=== PATIENT | female | born 1945 | race Caucasian/White ===

== ENCOUNTER 2022-07-01 11:47 | Inpatient (IN) | payer MEDICARE, OTHER, SELFPAY ==
--- NOTE | ~2022-07-01 | MR_ITS ---
EXAMINATION: MR BRAIN WITHOUT CONTRAST CLINICAL INFORMATION: Confusion. Behavioral disturbance. Memory loss. COMPARISON: None available. TECHNIQUE: MRI of the brain was obtained using routine sequences without contrast. FINDINGS: No focal restricted diffusion is demonstrated to suggest acute or subacute cerebral ischemia. No evidence of acute or chronic hemorrhagic products on heme-sensitive imaging. Scattered and partially confluent periventricular, deep white matter, and brainstem T2 FLAIR hyperintensities consistent with moderate underlying microangiopathy. 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 Proportional prominence of the ventricles and sulcal spaces without evidence of obstructive hydrocephalus. No abnormal mass effect. No midline shift. Normal appearance of the pituitary gland. Normal positioning of the cerebellar tonsils. Normal arterial and venous vascular flow voids are present. Normal, homogeneous marrow signal. Moderate opacification of the left sphenoid air cell. Mild mucosal thickening of the remaining paranasal sinuses. Moderate leftward nasal septal deviation. No signal abnormalities within the mastoids. MR/MR head/brain wo con IMPRESSION: 1. No acute intracranial abnormalities. 2. Moderate underlying microangiopathy and generalized cerebral volume loss. Chronic lacunar infarcts of the cerebellum.
[2022-07-01 12:01] VITALS: BP 160/84; PULSE 66; RESP 16; TEMP 36.9; O2SAT 93; BMI 35.5
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
[2022-07-01 13:03] LABS: COVID-19 Test Negative (Negative); IDNOW Serial# 16C4AD1C
--- NOTE | 2022-07-01 13:24 | PC.NURSE ---
MD at bedside, social work at bedside
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
--- NOTE | 2022-07-01 14:07 | MHC.EDTECH ---
@[phone] called [facility] MR line. Requested records for the patient. The woman on the line said they couldn't release mental health information without a release form. I asked for the fax number and told her we would get the release faxed to her LILLY.
[2022-07-01 14:13] LABS: MANUAL DIFF FLAG NO
[2022-07-01 14:16] LABS: Basophils Absolute Auto 0.1 X10*3/uL (0.0-0.2); Basophils Percent Auto 0.6 % (0-2); Eosinophils Absolute Auto 0.2 X10*3/uL (0.0-0.4); Eosinophils Percent Auto 2.4 % (0-4); Hematocrit 43.4 % (37.0-47.0); Hemoglobin 13.9 g/dl (12.0-16.0); Imm Gran Abs Auto 0.03 X10*3/uL (0.00-0.03); Imm Gran Pct Auto 0.4 % (0.0-0.4); Lymphocytes Absolute Auto 1.7 X10*3/uL (1.2-4.9); Lymphocytes Percent Auto 20.9 % (20-40); Mean Corpuscular Hemoglobin 29.6 pg (27.0-33.0); Mean Corpuscular Volume 92.3 fL (80.0-98.0); Mean Platelet Volume 9.2 fL (9.4-12.3); Monocytes Absolute Auto 0.6 X10*3/uL (0.1-1.2); Neutrophils Absolute Auto 5.7 x10*3/uL (2.0-8.3); Neutrophils Percent Auto 68.7 % (45-73); Platelet Count 304 X10*3/uL (160-400); Red Cell Distribution Width 14.6 % (11.0-16.0); White Blood Count 8.3 X10*3/uL (4.8-10.8)
[2022-07-01 14:43] LABS: Alanine Aminotransferase 13 U/L (0-31); Alkaline Phosphatase 67 U/L (39-117); Anion Gap 15 (12-20); Aspartate Amino Transferase 17 U/L (5-31); Bilirubin Total 0.4 mg/dL (0.0-1.0); Blood Urea Nitrogen 12 mg/dL (9-16); Calcium 9.7 mg/dL (8.4-10.2); Carbon Dioxide 26 mmol/L (22-29); Chloride 106 mmol/L (96-108); Creatinine Clr Calc Pharmacy 64.2; Estimated Glomerular Filt Rate > 60; Glucose Fasting 162 mg/dL (60-99); Potassium 4.6 mmol/L (3.3-5.1); Sodium 142 mmol/L (135-145); Total Protein 6.9 g/dL (6.5-8.0)
[2022-07-01 15:19] LABS: Appearance Urine Cloudy; Color Urine Dark Yellow; Glucose Urine UA Negative (Negative); Leukocyte Esterase Urine Small (1+) (Negative); Nitrite Urine Negative (Negative); Specific Gravity - Urine 1.025 (1.005-1.025); UMIC TRIGGER UACC YES; Urine Blood Negative (Negative); Urine Ketones Trace mg/dL (Negative); Urine Protein Trace mg/dL (Neg-Trace)
--- NOTE | 2022-07-01 15:27 | PC.NURSE ---
Care team at bedside for eval with pt and her .
[2022-07-01 15:30] LABS: Amphetamine Screen Urine Not Detected (Not Detect); Barbiturates, Urine Not Detected (Not Detect); Benzodiazepines Screen Urine Not Detected (Not Detect); Cannabinoid Screen Urine Not Detected (Not Detect); Cocaine Screen Urine Not Detected (Not Detect); Fentanyl, urine Not Detected (Not Detect); Opiate Screen Urine Not Detected (Not Detect); Phencyclidine Screen Urine Not Detected (Not Detect)
[2022-07-01 15:32] LABS: Bacteria Urine None Seen (None Seen); Calcium Oxalate Crystals Urine Present; Hyaline Casts Urine 0-2 /LPF (0-2); RBC Urine 0-2 /HPF (0-2); UACC Culture Trigger YES
--- NOTE | 2022-07-01 16:56 | PHA.MEDREC ---
Pharmacy Consult ? Medication Reconciliation Pharmacy has completed the medication reconciliation.
[2022-07-01 19:36] LABS: Glucose, Whole Blood 170 mg/dL (60-115)
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
[2022-07-02 00:05] VITALS: BP 133/83; PULSE 82; RESP 18; TEMP 36.4; O2SAT 95
--- NOTE | 2022-07-02 00:06 | MHC.EDTECH ---
pt is sitting in the chair across from her room she can not sleep she just wants to sit
--- NOTE | 2022-07-02 04:36 | MHC.EDTECH ---
pt is still awake have not slept all night
[2022-07-02] MEDS: Levothyroxine Sodium 75 MCG TABLET PO (05:42)
--- NOTE | 2022-07-02 05:53 | PC.NURSE ---
Patient sat in chair whole night awake at time in tears, patient is mad at her and her children for making her stay in ED POD, patient will be evaluated by care team in the morning after psych consult for capacity, med rec completed/approved, patient is selectively compliant with her medication, behavior non concerning, gait at time unsteady but secured, POC 170 @ 1932, VSS, will continue to monitor.
--- NOTE | 2022-07-02 07:19 | PC.NURSE ---
Patient visiting with no distress noted alert to person and place some confusion to time and situation.
[2022-07-02 07:21] LABS: Glucose, Whole Blood 231 mg/dL (60-115)
[2022-07-02 07:24] VITALS: BP 124/71; PULSE 72; RESP 16; TEMP 36.5; O2SAT 96
[2022-07-02] MEDS: metFORMIN HCl ER 500 MG TAB.ER.24H 1000 MG PO ×2 (08:26→17:57)
[2022-07-02] MEDS: Insulin Glargine,Hum.rec.anlog 100 UNIT/ML 10 ML VIAL 17 UNIT SUBCUT (08:26)
[2022-07-02] MEDS: Tolterodine Tartrate LA 4 MG CAP.ER.24H PO (08:51)
[2022-07-02] MEDS: Propranolol HCL LA 80 MG CAP.SA.24H 160 MG PO (09:11)
--- NOTE | 2022-07-02 09:14 | MHC.CARE ---
Patient's daughter, Kenya Gaviria, called this morning 914a 07/02/2022 requesting to be notified when patient is d/c, if she is, as well as to be able to discuss her mother's behavior/ care with the individual responsible for the psych consult.
--- NOTE | 2022-07-02 09:32 | PC.NURSE ---
Patient sleeping at bedside will CTM
[2022-07-02 13:34] LABS: C Reactive Protein 0.41 mg/dL (< or = 0.50)
[2022-07-02 13:50] LABS: TSH reflex Free T4 1.81 uIU/mL (0.32-4.0)
[2022-07-02 14:11] LABS: Folate 17.5 ng/mL (> or = 4.0); Vitamin B12 351 pg/mL (200-900)
--- NOTE | 2022-07-02 14:22 | PC.NURSE ---
Patient ambulating in pod with behavior appropriate will CTM
--- NOTE | 2022-07-02 15:40 | PC.NURSE ---
Pt seen this date for individual OT tx. ELOY cognitive assessment administered this day, environment modified to decrease auditory and visual distraction for most objective outcome. Pts score 16/30 is indicative of moderate neurocognitive deficit present. Pts attending OTR notified of pt result.
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
[2022-07-02] MEDS: risperiDONE 0.5 MG TABLET PO (17:57)
[2022-07-02] MEDS: LORazepam 1 MG TABLET 2 MG PO (18:05)
[2022-07-03 01:47] VITALS: BP 118/70; PULSE 69; RESP 17; TEMP 36.3; O2SAT 95
--- NOTE | 2022-07-03 05:46 | PC.NURSE ---
Patient slept intermittently though the night, no distress observed/reported, no behavior concerns at this time but was tearful at time, thought content delusional but thought process coherent, patient was compliant with MRI, medication compliant, care team disposition is pending due to pending psych consult, VSS, will continue to monitor.
[2022-07-03] MEDS: Levothyroxine Sodium 75 MCG TABLET PO (06:56)
[2022-07-03 07:45] LABS: Syphilis Screen Nonreactive (Nonreactive)
[2022-07-03 07:46] VITALS: RESP 18
[2022-07-03 07:57] VITALS: BP 158/96; PULSE 90; RESP 20; TEMP 36.1; O2SAT 94
[2022-07-03 08:20] LABS: Glucose, Whole Blood 209 mg/dL (60-115)
[2022-07-03] MEDS: Insulin Glargine,Hum.rec.anlog 100 UNIT/ML 10 ML VIAL 17 UNIT SUBCUT (08:23)
[2022-07-03] MEDS: LORazepam 0.5 MG TABLET PO (08:23)
[2022-07-03] MEDS: risperiDONE 0.5 MG TABLET PO (08:23)
[2022-07-03] MEDS: metFORMIN HCl ER 500 MG TAB.ER.24H 1000 MG PO ×2 (08:24→18:51)
[2022-07-03] MEDS: Tolterodine Tartrate LA 4 MG CAP.ER.24H PO (08:32)
[2022-07-03] MEDS: Propranolol HCL LA 80 MG CAP.SA.24H 160 MG PO (08:32)
--- NOTE | 2022-07-03 10:42 | PC.NURSE ---
Pt became acutely agitated during 's visit. removed to WR.
--- NOTE | 2022-07-03 11:22 | MHC.CARE ---
Spoke to patient?s and daughter in the lobby by their request, they did not want to further upset her by coming in but wanted to talk to a CARE clergy member. They explained that last evening they were planning to take her home but she became extremely agitated and they did not feel safe taking her and wanted to see if the new medication would be effective after a few doses here. We relieved that she had the MRI last night and are eager to hear the results. Expressed concerns about patient not sleeping and would like to know how to invoke the HCP and what that offers in terms of decision making in this situation. The are worried about her being home without medication compliance, agitation, delusions and level of anger towards her family. ?Patient was sleeping at the time of this conversation and the family planned to wait in the lobby until she woke up or there was an update on her and want to revisit the disposition with the psychiatric provider.
--- NOTE | 2022-07-03 12:53 | PC.NURSE ---
Pt supplied with 2x copies of MRI results per pt request. Pt in behavioral control at this time.
[2022-07-03 14:00] VITALS: RESP 18
--- NOTE | 2022-07-03 18:20 | PC.NURSE ---
Pt appears to be sleeping at thsi time, resp reg and even, no acute distress. Section 12B myesha bedsearch.
[2022-07-03] MEDS: Acetaminophen 325 MG TABLET PO (19:29)
[2022-07-03 21:21] VITALS: BP 154/83; PULSE 83; RESP 18; TEMP 36.1; O2SAT 95
[2022-07-03 23:47] VITALS: BP 152/77; PULSE 76; RESP 18; TEMP 36.2; O2SAT 100
[2022-07-03 23:49] VITALS: BMI 38.7
--- NOTE | 2022-07-04 | ECG_ITS ---
Test Reason : qtc Blood Pressure : / mmHG Vent. Rate : 086 BPM Atrial Rate : 086 BPM P-R Int : 152 ms QRS Dur : 072 ms QT Int : 356 ms P-R-T Axes : 031 -02 022 degrees QTc Int : 426 ms Normal sinus rhythm Low voltage QRS Nonspecific ST abnormality Borderline ECG No previous ECGs available Referred By: Rekha Craig Electronically Signed By:HELENA RODRIGES
[2022-07-04] MEDS: risperiDONE 0.5 MG TABLET PO ×2 (00:05→10:49)
[2022-07-04] MEDS: Pravastatin Sodium 20 MG TABLET PO ×2 (00:05→21:11)
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
[2022-07-04] MEDS: Albuterol Sulfate 90 MCG 8 GM INHALER 2 PUFF INHALE (01:27)
[2022-07-04] MEDS: LORazepam 0.5 MG TABLET PO ×3 (03:05→21:11)
[2022-07-04] MEDS: Levothyroxine Sodium 75 MCG TABLET PO (05:38)
[2022-07-04 06:00] VITALS: BP 92/57; PULSE 61; RESP 14; TEMP 36.2; O2SAT 96
[2022-07-04] MEDS: Insulin Glargine,Hum.rec.anlog 100 UNIT/ML 10 ML VIAL 17 UNIT SUBCUT (10:49)
[2022-07-04] MEDS: metFORMIN HCl ER 500 MG TAB.ER.24H 1000 MG PO ×2 (11:22→16:46)
[2022-07-04] MEDS: Tolterodine Tartrate LA 4 MG CAP.ER.24H PO (11:23)
--- NOTE | 2022-07-04 13:33 | HO.PSYADMNOT ---
HPI Date of Service: 07/04/22 Chief Complaint: delusions Sources of Information: patient interviewed, chart reviewed and crisis/core team assessment reviewed Additional Sources of Information: daughter [place] - Hitesh [facility] Subjective Notes: [place] Warning and Section 12B Healthcare Proxy: Yes Narrative: Mrs. Cool is a 77 year-old woman who has been presenting with delusions that her is having an affair with woman at [employer]. This has been going on for almost a year but has significantly intensified in the past several week. Family also reports pt has been presenting as more forgetful, forgetting recipes she done for years. She has not been sleeping well. At times waking up at night, telling that she thinks someone is in the house.? Pt has been increasingly more agitated towards and family worried that recently had hip surgery and is fragil. In the ED- work up include CBC which is unremarkable. CMP wnl, with creatinine clearance of 64.2. UA shows small leukocytes, culture positive for step a. (group b) started on aumentin. MOCA completed- pt scored 16/30 with most impairments on executive function, visuospatial (0/5), naming (1/3), language fluency and recall. Orientation is intact. 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 On the unit, pt continues to present with delusions of having an affair with someone from the [employer]. She states she is hoping for him to confessed. She denies SI/HI. We discussed finding of cognitive impairments and changes in mood. Medical Evaluation Reviewed: Yes Diagnostics Vital Signs (24Hr): Vital Signs - 24 hr 07/03/22 14:00 07/03/22 21:21 07/03/22 23:47 Temperature 97 F 97.2 F Pulse Rate 83 76 Respiratory Rate 18 18 18 Blood Pressure 154/83 H 152/77 H Pulse Oximetry 95 100 Oxygen Delivery Method Room Air Room Air 07/04/22 06:00 Temperature 97.2 F Pulse Rate 61 Respiratory Rate 14 Blood Pressure 92/57 L Pulse Oximetry 96 Oxygen Delivery Method Room Air BMI result Body Mass Index 38.7 Labs 07/01/22 14:07 07/01/22 14:07 Labs: Laboratory Results - last 48 hr 07/02/22 07/02/22 07/02/22 12:49 12:49 12:49 POC Glucose C-Reactive Protein 0.41 Vitamin B12 351 Folate 17.5 TSH 1.81 T.pallidum Ab (EIA) Nonreactive 07/03/22 08:15 POC Glucose 209 H C-Reactive Protein Vitamin B12 Folate TSH T.pallidum Ab (EIA) Imaging Radiology Impressions: ITS Impressions Brain MRI 07/02/22 21:00 IMPRESSION: 1. No acute intracranial abnormalities. 2. Moderate underlying microangiopathy and generalized cerebral volume loss. Chronic lacunar infarcts of the cerebellum. Meds/Allergies Meds Home Medications Medication Instructions Recorded Confirmed Type albuterol sulfate 90 mcg/actuation 2 puff inhalation Q6H 07/01/22 07/01/22 History aerosol inhaler dulaglutide 0.75 mg/0.5 mL 75 mg subcut FR 07/01/22 07/01/22 History subcutaneous pen injector (Trulicity) insulin degludec 100 unit/mL (3 25 unit subcut DAILY 07/01/22 07/01/22 History mL) subcutaneous pen (Tresiba FlexTouch U-100 insulin) levothyroxine 75 mcg tablet 1 tab PO DAILY 07/01/22 07/01/22 History lorazepam 0.5 mg tablet 1 tab PO BID PRN Anxiety 07/01/22 07/01/22 History metformin 500 mg tablet,extended 2 tab PO BID 07/01/22 07/01/22 History release 24 hr pravastatin 20 mg tablet 1 tab PO BEDTIME 07/01/22 07/01/22 History propranolol 160 mg capsule,24 1 cap PO DAILY 07/01/22 07/01/22 History hr,extended release tolterodine 4 mg capsule,extended 1 cap PO DAILY 07/01/22 07/01/22 History release 24 hr Allergies Allergies Allergy/AdvReac Type Severity Reaction Status Date / Time combi-patch (hormone) Allergy Unknown Unknown Uncoded 07/01/22 11:51 Sulfamethoxazole Allergy Unknown Unknown Uncoded 07/01/22 11:51 Mental Status Exam Mental Status Exam Narrative: Appearance: casually groomed, good hygiene, tearful but not agitated. Behavior: cooperative Psychomotor: no agitation or retardation noted Speech: clear, some difficulty finding words is evident, spontaneous TP: repetitive- goal directed wanting to go home. TC: delusions related to having affair, wanting to go home SI: none HI: none VH/AH: none Insight/judgment: impaired x 2. Memory/cog: alert, oriented month, place, date, year, not so much situation- thinks family conspiring against her because father has affair and brought her to hospital to keep her away from them. MOCA on 07/02/2022 scored 16/30 with most impairments on executive function, visuospatial (0/5), naming (1/3), language fluency (0/1) and recall (2/5). Orientation is intact. 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 Assessment & Plan Assessment & Plan (1) Vascular dementia with delusions: Status: Acute Code(s): F01.52 - Vascular dementia, unspecified severity, with psychotic disturbance Plan Mrs. Grayson is a 77 year-old woman with hx of DM, HTN, who was brought by family due to increase agitation in setting of delusions of having affair. These delusions have been increasing in intensity and frequency but started almost about one year ago. Pt also presents with memory/cognitive changes which family have been noticing. MOCA on 07/02/2022 scored 16/30 with most impairments on executive function, visuospatial (0/5), naming (1/3), language fluency (0/1) and recall (2/5). Orientation is intact. 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 Pattern of impairment is most consistent with vascular dementia but language also showing significant impairment. It could be a mixed presentation. PLAN 1. Admit to S1, sect 12b, 15 minutes checks for safety 2. increase risperidone 1mg po BID, start exelon 1.5mg po BID 3. Aftercare planning. Patient educated on: diagnosis Reason for continued inpatient stay Substantial Risk for: harm to others and inability to function Statement Statement: I have reviewed the history and physical and performed a pertinent examination on my patient. No changes have occurred unless specified. If the History and Physical was not performed prior to admission, the Hospitalist's service will be consulted for completing the admission physical. Time Spent With Patient Time: Total time managing care of this patient today ____ minutes.
[2022-07-04 13:40] LABS: Estimated Average Glucose 171 mg/dL; Hemoglobin A1c % 7.6 %
[2022-07-04 13:50] LABS: Troponin-I High Sensitivity < 3.5 ng/L (<3.5-17.0)
[2022-07-04] MEDS: Amoxicillin/Potassium Clav 500 MG TABLET PO ×2 (13:51→21:11)
[2022-07-04 16:29] LABS: Glucose, Whole Blood 192 mg/dL (60-115)
[2022-07-04] MEDS: Insulin Lispro 100 UNIT/ML 3 ML VIAL SUBCUT (16:45)
[2022-07-04] MEDS: Rivastigmine Tartrate 1.5 MG CAPSULE PO ×2 (16:46→21:11)
--- NOTE | 2022-07-04 20:17 | PC.NURSE ---
Pt noted to be walking with cane in a a steady gait. Pt reports I want to walk for fresh air . Pt educated about patio and fresh air breaks. Pt then reports not that kind of fresh air break but away from here . Pt noted to be agitated and pacing. Pt then requested to go out to patio. Pt was taking out to patio for fresh air break. After Pt came back in RN asked if she can take her POCT glucose and Pt refused stating I already had it checked Pt educated on medications and checking blood glucose. Pt refused medications at this time. Will re-attempt after Pt less agitated. Will con't to monitor.
[2022-07-04 21:05] VITALS: BP 94/63; PULSE 112; RESP 20; TEMP 36.2; O2SAT 95
[2022-07-04] MEDS: risperiDONE 1 MG TABLET PO (21:11)
[2022-07-04 21:18] VITALS: BP 98/69; PULSE 95
[2022-07-05] MEDS: Levothyroxine Sodium 75 MCG TABLET PO (05:56)
[2022-07-05 07:50] LABS: Glucose, Whole Blood 136 mg/dL (60-115)
[2022-07-05 10:20] VITALS: BP 163/83; PULSE 89; RESP 18; TEMP 36.4; O2SAT 98
[2022-07-05 11:52] LABS: Glucose, Whole Blood 121 mg/dL (60-115)
--- NOTE | 2022-07-05 12:21 | P.PNPSI_ITS ---
Subjective Subjective Date of Service: 07/05/22 Reason For Visit: delusions Subjective Notes: Conditional Voluntary (signed by HCP) Healthcare Proxy: Yes Interim History: Pt continues to present with delusions of having an affair. She is very upset because she thinks she is here so can be with woman from [facility]. Pt denies SI/HI. Pt upset about being hospital as she states she misses her and wants to be with him. Per nursing, pt irritable at times due to wanting to be here. Medication Compliance: Yes Side effects from medications: No Attending Groups: Intermittent Review of Systems Review of Systems Constitutional : No Weight loss, No Fever, No Chills, No Night Sweats, No Fatigue, No Malaise ENT/Mouth : No Hearing loss, No Ear Pain, No Nasal Congestion, No Sinus Pain, No Hoarseness, No sore throat, No Rhinorrhea, No Swallowing Difficulty Eyes: No Eye Pain, No Swelling, No Redness, No Foreign Body, No Discharge, No Vision Changes Cardiovascular : No Chest Pain, No SOB, No Dyspnea on Exertion, No Orthopnea, No Edema, No Palpitations Respiratory : No Cough, No Sputum, No Wheezing, No Smoke Exposure, No Dyspnea Gastrointestinal : No Nausea, No Vomiting, No Diarrhea, No Constipation, No abdominal Pain, No Hematochezia, No Melena Genitourinary : no irregular bleeding, No Dysuria, No Urinary Frequency, No Hematuria, No Urinary Incontinence, No Urgency, No Flank Pain, No Urinary Flow Changes, No Hesitancy Musculoskeletal : No joint pain, No Myalgias, No Joint Swelling Skin : No Skin Lesions, No rash Neuro : No Weakness, No Numbness, No Paresthesias, No Loss of Consciousness, No Dizziness, No Headache Psych : Patient denies suicidal or homicidal ideation Heme/Lymph: No Bruising, No Bleeding,No Lymphadenopathy Endocrine : No Polyuria, No Polydipsia, No Temperature Intolerance Mental Status Exam Mental Status Exam Narrative: Appearance: casually groomed, good hygiene, tearful but not agitated. Behavior: cooperative Psychomotor: no agitation or retardation noted Speech: clear, some difficulty finding words is evident, spontaneous TP: repetitive- goal directed wanting to go home. TC: delusions related to having affair, wanting to go home SI: none HI: none VH/AH: none Insight/judgment: impaired x 2. Memory/cog: alert, oriented month, place, date, year, not so much situation- thinks family conspiring against her because father has affair and brought her to hospital to keep her away from them. MOCA on 07/02/2022 scored 16/30 with most impairments on executive function, visuospatial (0/5), naming (1/3), language fluency (0/1) and recall (2/5). Orientation is intact. 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 Diagnostics Vital Signs (24Hr): Vital Signs - 24 hr 07/05/22 10:20 Temperature 97.6 F Pulse Rate 89 Respiratory Rate 18 Blood Pressure 163/83 H Pulse Oximetry 98 Oxygen Delivery Method Room Air BMI result Body Mass Index 38.7 Labs 07/01/22 14:07 07/01/22 14:07 Labs: Laboratory Results - last 48 hr 07/04/22 07/04/22 07/04/22 13:24 13:24 16:24 POC Glucose 192 H Estimat Average Glucose 171 Hemoglobin A1c % 7.6 Troponin I High Sens < 3.5 07/05/22 07/05/22 07/05/22 07:45 11:48 16:24 POC Glucose 136 H 121 H 178 H Estimat Average Glucose Hemoglobin A1c % Troponin I High Sens 07/05/22 07/06/22 20:15 07:51 POC Glucose 135 H 152 H Estimat Average Glucose Hemoglobin A1c % Troponin I High Sens Imaging Radiology Impressions: ITS Impressions Brain MRI 07/02/22 21:00 IMPRESSION: 1. No acute intracranial abnormalities. 2. Moderate underlying microangiopathy and generalized cerebral volume loss. Chronic lacunar infarcts of the cerebellum. Medications Medications Current Medications Acetaminophen (Acetaminophen 325 Mg Tablet) 650 mg PO Q6H PRN PRN Reason: Headache/Pain Mild Scale (1-3) Al Hydroxide/Mg Hydroxide (Magnesium Hydrox/Alum Hydrox 30 Ml Oral.Susp) 30 ml PO Q6H PRN PRN Reason: Heartburn/Nausea Albuterol Sulfate (Albuterol Sulfate 90 Mcg 8 Gm Inhaler) 2 puff INHALE RQ6H [facility] Last Admin: 07/06/22 06:42 Dose: Not Given Amoxicillin/Clavulanate Potassium (Amoxicillin/Potassium Clav 500 Mg Tablet) 500 mg PO BID [facility] Last Admin: 07/05/22 20:17 Dose: 500 mg Insulin Glargine (Insulin Glargine,Hum.Rec.Anlog 100 Unit/Ml 10 Ml Vial) 17 uni t SUBCUT DAILY [facility] Last Admin: 07/05/22 12:51 Dose: 17 unit Insulin Human Lispro (Insulin Lispro 100 Unit/Ml 3 Ml Vial) 0 unit SUBCUT QIDACHS [facility]; Protocol Last Admin: 07/05/22 23:37 Dose: Not Given Levothyroxine Sodium (Levothyroxine Sodium 75 Mcg Tablet) 75 mcg PO DAILY@0600 [facility] Last Admin: 07/06/22 06:41 Dose: 75 mcg Lorazepam (Lorazepam 0.5 Mg Tablet) 0.5 mg PO BID [facility] Last Admin: 07/05/22 20:17 Dose: 0.5 mg Magnesium Hydroxide (Milk Of Magnesia 30 Ml Oral.Susp) 30 ml PO DAILY PRN PRN Reason: Constipation Metformin HCl (Metformin Hcl Er 500 Mg Tab.Er.24h) 1,000 mg PO BIDWM [facility] Last Admin: 07/05/22 16:43 Dose: 1,000 mg Pravastatin Sodium (Pravastatin Sodium 20 Mg Tablet) 20 mg PO BEDTIME [facility] Last Admin: 07/05/22 20:16 Dose: 20 mg Propranolol HCl (Propranolol Hcl La 80 Mg Cap.Sa.24h) 160 mg PO DAILY [facility]; Protocol Last Admin: 07/05/22 12:43 Dose: 160 mg Risperidone (Risperidone 1 Mg Tablet) 1 mg PO BID [facility] Last Admin: 07/05/22 20:17 Dose: 1 mg Rivastigmine Tartrate (Rivastigmine Tartrate 1.5 Mg Capsule) 1.5 mg PO BID [facility] Last Admin: 07/05/22 20:17 Dose: 1.5 mg Tolterodine Tartrate (Tolterodine Tartrate La 4 Mg Cap.Er.24h) 4 mg PO DAILY [facility] Last Admin: 07/05/22 12:45 Dose: 4 mg Trazodone HCl (Trazodone Hcl 50 Mg Tablet) 50 mg PO BEDTIME PRN PRN Reason: Insomnia Allergies Allergies Allergy/AdvReac Type Severity Reaction Status Date / Time combi-patch (hormone) Allergy Unknown Unknown Uncoded 07/01/22 11:51 Sulfamethoxazole Allergy Unknown Unknown Uncoded 07/01/22 11:51 Assessment & Plan Assessment & Plan (1) Vascular dementia with delusions: Status: Acute Code(s): F01.52 - Vascular dementia, unspecified severity, with psychotic disturbance Plan Mrs. Grayson is a 77 year-old woman with hx of DM, HTN, who was brought by family due to increase agitation in setting of delusions of having affair. These delusions have been increasing in intensity and frequency but started almost about one year ago. Pt also presents with memory/cognitive changes which family have been noticing. MOCA on 07/02/2022 scored 16/30 with most impairments on executive function, visuospatial (0/5), naming (1/3), language fluency (0/1) and recall (2/5). Orientation is intact. 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 Pattern of impairment is most consistent with vascular dementia but language also showing significant impairment. It could be a mixed presentation. PLAN 1. Admit to S1, sect 12b, 15 minutes checks for safety 2. increase risperidone 1mg po BID, start exelon 1.5mg po BID 3. Aftercare planning. 07/05- continue current medications. Reason for contiued inpatient stay Substantial Risk for: inability to function Time Spent With Patient Time: Total time managing care of this patient today ____ minutes.
[2022-07-05] MEDS: Propranolol HCL LA 80 MG CAP.SA.24H 160 MG PO (12:43)
[2022-07-05] MEDS: Amoxicillin/Potassium Clav 500 MG TABLET PO ×2 (12:43→20:17)
[2022-07-05] MEDS: metFORMIN HCl ER 500 MG TAB.ER.24H 1000 MG PO ×2 (12:44→16:43)
[2022-07-05] MEDS: risperiDONE 1 MG TABLET PO ×2 (12:45→20:17)
[2022-07-05] MEDS: Rivastigmine Tartrate 1.5 MG CAPSULE PO ×2 (12:45→20:17)
[2022-07-05] MEDS: Tolterodine Tartrate LA 4 MG CAP.ER.24H PO (12:45)
[2022-07-05] MEDS: LORazepam 0.5 MG TABLET PO ×2 (12:45→20:17)
[2022-07-05] MEDS: Insulin Glargine,Hum.rec.anlog 100 UNIT/ML 10 ML VIAL 17 UNIT SUBCUT (12:51)
[2022-07-05 16:28] LABS: Glucose, Whole Blood 178 mg/dL (60-115)
[2022-07-05] MEDS: Insulin Lispro 100 UNIT/ML 3 ML VIAL SUBCUT (16:41)
[2022-07-05] MEDS: Pravastatin Sodium 20 MG TABLET PO (20:16)
[2022-07-05 20:30] LABS: Glucose, Whole Blood 135 mg/dL (60-115)
[2022-07-06] MEDS: LORazepam 1 MG TABLET PO (00:02)
[2022-07-06 06:00] VITALS: BP 116/69; PULSE 78; RESP 18; TEMP 36.8; O2SAT 93
[2022-07-06] MEDS: Levothyroxine Sodium 75 MCG TABLET PO (06:41)
[2022-07-06 07:55] LABS: Glucose, Whole Blood 152 mg/dL (60-115)
--- NOTE | 2022-07-06 09:02 | HO.PSYCHPN ---
Subjective Subjective Date of Service: 07/06/22 Reason For Visit: delusions Subjective Notes: Section 12B Interim History: The nursing staff reported the last night she could not sleep she needed an extra order of Ativan 1 time at HS. She woke up at 04:00 o'clock in the morning. The staff has noticed that she is very the head on her delusional regarding the charge her cheating. She was seen in the ambulating with a cane safely. On interview the patient denies new symptoms she was to be discharged as soon as possible. She was tearful and she wanted me to talk wiht her . Mental Status Exam Mental Status Exam Patient Appearance: Well Grooomed and Appropriate Patient Orientation: Person and Situation Level of Consciousness: Awake and Appropriate Patient Behavior: Guarded and Cooperative Mood Description: Withdrawn Affect Description: Constricted Patient Cognition Impaired: Yes Ability to Follow Directions: Good Speech Pattern: Clear Hallucinations: None Delusions: Paranoid Ideation and Ideas of Reference Thought Process: Distracted and Linear Thought Content: positive for Circumstantial Judgement: Poor Diagnostics Vital Signs (24Hr): Vital Signs - 24 hr 07/05/22 10:20 Temperature 97.6 F Pulse Rate 89 Respiratory Rate 18 Blood Pressure 163/83 H Pulse Oximetry 98 Oxygen Delivery Method Room Air BMI result Body Mass Index 38.7 Labs 07/01/22 14:07 07/01/22 14:07 Labs: Laboratory Results - last 48 hr 07/04/22 07/04/22 07/04/22 13:24 13:24 16:24 POC Glucose 192 H Estimat Average Glucose 171 Hemoglobin A1c % 7.6 Troponin I High Sens < 3.5 07/05/22 07/05/22 07/05/22 07:45 11:48 16:24 POC Glucose 136 H 121 H 178 H Estimat Average Glucose Hemoglobin A1c % Troponin I High Sens 07/05/22 07/06/22 20:15 07:51 POC Glucose 135 H 152 H Estimat Average Glucose Hemoglobin A1c % Troponin I High Sens Imaging Radiology Impressions: ITS Impressions Brain MRI 07/02/22 21:00 IMPRESSION: 1. No acute intracranial abnormalities. 2. Moderate underlying microangiopathy and generalized cerebral volume loss. Chronic lacunar infarcts of the cerebellum. Medications Medications Current Medications Acetaminophen (Acetaminophen 325 Mg Tablet) 650 mg PO Q6H PRN PRN Reason: Headache/Pain Mild Scale (1-3) Al Hydroxide/Mg Hydroxide (Magnesium Hydrox/Alum Hydrox 30 Ml Oral.Susp) 30 ml PO Q6H PRN PRN Reason: Heartburn/Nausea Albuterol Sulfate (Albuterol Sulfate 90 Mcg 8 Gm Inhaler) 2 puff INHALE RQ6H [facility] Last Admin: 07/06/22 06:42 Dose: Not Given Amoxicillin/Clavulanate Potassium (Amoxicillin/Potassium Clav 500 Mg Tablet) 500 mg PO BID [facility] Last Admin: 07/05/22 20:17 Dose: 500 mg Insulin Glargine (Insulin Glargine,Hum.Rec.Anlog 100 Unit/Ml 10 Ml Vial) 17 unit SUBCUT DAILY [facility] Last Admin: 07/05/22 12:51 Dose: 17 unit Insulin Human Lispro (Insulin Lispro 100 Unit/Ml 3 Ml Vial) 0 unit SUBCUT QIDACHS [facility]; Protocol Last Admin: 07/05/22 23:37 Dose: Not Given Levothyroxine Sodium (Levothyroxine Sodium 75 Mcg Tablet) 75 mcg PO DAILY@0600 [facility] Last Admin: 07/06/22 06:41 Dose: 75 mcg Lorazepam (Lorazepam 0.5 Mg Tablet) 0.5 mg PO BID [facility] Last Admin: 07/05/22 20:17 Dose: 0.5 mg Magnesium Hydroxide (Milk Of Magnesia 30 Ml Oral.Susp) 30 ml PO DAILY PRN PRN Reason: Constipation Metformin HCl (Metformin Hcl Er 500 Mg Tab.Er.24h) 1,000 mg PO BIDWM [facility] Last Admin: 07/05/22 16:43 Dose: 1,000 mg Pravastatin Sodium (Pravastatin Sodium 20 Mg Tablet) 20 mg PO BEDTIME [facility] Last Admin: 07/05/22 20:16 Dose: 20 mg Propranolol HCl (Propranolol Hcl La 80 Mg Cap.Sa.24h) 160 mg PO DAILY [facility]; Protocol Last Admin: 07/05/22 12:43 Dose: 160 mg Risperidone (Risperidone 1 Mg Tablet) 1 mg PO BID [facility] Last Admin: 07/05/22 20:17 Dose: 1 mg Rivastigmine Tartrate (Rivastigmine Tartrate 1.5 Mg Capsule) 1.5 mg PO BID [facility] Last Admin: 07/05/22 20:17 Dose: 1.5 mg Tolterodine Tartrate (Tolterodine Tartrate La 4 Mg Cap.Er.24h) 4 mg PO DAILY [facility] Last Admin: 07/05/22 12:45 Dose: 4 mg Trazodone HCl (Trazodone Hcl 50 Mg Tablet) 50 mg PO BEDTIME PRN PRN Reason: Insomnia Allergies Allergies Allergy/AdvReac Type Severity Reaction Status Date / Time combi-patch (hormone) Allergy Unknown Unknown Uncoded 07/01/22 11:51 Sulfamethoxazole Allergy Unknown Unknown Uncoded 07/01/22 11:51 Assessment & Plan Assessment & Plan (1) Vascular dementia with delusions: Status: Acute Code(s): F01.52 - Vascular dementia, unspecified severity, with psychotic disturbance Plan Mrs. Cool is a 77 year old woman brought via EMS to [facility] ED due to delusions of having an affair, increase agitation and memory/cog declined. Changes have been going on for a year but recently increasingly more intense in terms of delusions and agitation. Medical work up in ED include CBC unremarkable. CMP also unremarkable. UA suggestive of UTI pending culture. Do NOT suspect pt is delirious as attention is fairly intact and given progressive behavioral and cognitive changes may be better explained by dementing process. Her pattern of impairment is consistent with vascular dementia- except for language impairment, but her orientation is intact (also another finding not consistent with delirium process). She may have mixed etiology.pt scored 16/30 with most impairments on executive function, visuospatial (0/5), naming (1/3), language fluency and recall. Orientation is intact. 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 PLAN 1. Initial plan was for pt to start medication and follow up OP but she continues to present as agitated and targeting . Also, lacks insight to symptoms and need for treatment. Pt insists on driving which is highly concerning given MOCA results showing severe impairments in visuospatial and executive function. Inpatient psych at this point. 2. Continue risperidone and exelon Reason for contiued inpatient stay Substantial Risk for: inability to function, rapid decompensation and med/psych decompensation Time Spent With Patient Time: Total time managing care of this patient today __20__ minutes.
[2022-07-06] MEDS: Insulin Lispro 100 UNIT/ML 3 ML VIAL SUBCUT ×3 (09:22→20:15)
[2022-07-06] MEDS: Tolterodine Tartrate LA 4 MG CAP.ER.24H PO (09:23)
[2022-07-06] MEDS: Rivastigmine Tartrate 1.5 MG CAPSULE PO ×2 (09:23→20:14)
[2022-07-06] MEDS: Insulin Glargine,Hum.rec.anlog 100 UNIT/ML 10 ML VIAL 17 UNIT SUBCUT (09:23)
[2022-07-06] MEDS: metFORMIN HCl ER 500 MG TAB.ER.24H 1000 MG PO ×2 (09:23→17:18)
[2022-07-06] MEDS: risperiDONE 1 MG TABLET PO ×2 (09:23→21:18)
[2022-07-06] MEDS: Propranolol HCL LA 80 MG CAP.SA.24H 160 MG PO (09:23)
[2022-07-06] MEDS: Amoxicillin/Potassium Clav 500 MG TABLET PO ×2 (09:24→20:13)
[2022-07-06] MEDS: LORazepam 0.5 MG TABLET PO ×2 (09:24→20:13)
[2022-07-06 11:29] LABS: Glucose, Whole Blood 246 mg/dL (60-115)
[2022-07-06 16:37] LABS: Glucose, Whole Blood 149 mg/dL (60-115)
[2022-07-06 18:00] VITALS: BP 125/71; PULSE 71; RESP 16; TEMP 36.2; O2SAT 94
[2022-07-06 20:07] LABS: Glucose, Whole Blood 172 mg/dL (60-115)
[2022-07-06] MEDS: Pravastatin Sodium 20 MG TABLET PO (20:13)
[2022-07-07] MEDS: Levothyroxine Sodium 75 MCG TABLET PO (05:44)
[2022-07-07 07:30] VITALS: BP 131/60; PULSE 75; RESP 16; TEMP 36.9; O2SAT 95
[2022-07-07 07:43] LABS: Glucose, Whole Blood 118 mg/dL (60-115)
[2022-07-07] MEDS: Insulin Glargine,Hum.rec.anlog 100 UNIT/ML 10 ML VIAL 17 UNIT SUBCUT (09:26)
[2022-07-07] MEDS: Amoxicillin/Potassium Clav 500 MG TABLET PO ×2 (09:27→20:41)
[2022-07-07] MEDS: metFORMIN HCl ER 500 MG TAB.ER.24H 1000 MG PO ×2 (09:27→16:56)
[2022-07-07] MEDS: risperiDONE 1 MG TABLET PO ×2 (09:27→20:41)
[2022-07-07] MEDS: Tolterodine Tartrate LA 4 MG CAP.ER.24H PO (09:27)
[2022-07-07] MEDS: Propranolol HCL LA 80 MG CAP.SA.24H 160 MG PO (09:27)
[2022-07-07] MEDS: Rivastigmine Tartrate 1.5 MG CAPSULE PO ×2 (09:27→20:41)
[2022-07-07] MEDS: LORazepam 0.5 MG TABLET PO ×2 (09:28→20:41)
--- NOTE | 2022-07-07 09:49 | HO.PSYCHPN ---
Subjective Subjective Date of Service: 07/07/22 Reason For Visit: delusions Subjective Notes: Section 12B Interim History: The nursing staff reported that her her fasting blood sugars were well 100 sent 72 need coverage with insulin. She has been cooperative and she woke up 03:00 o'clock in the morning. She spent most of the time in her room. On interview the patient denies new symptoms she wants to be discharged. She was tearful, stating that her children put her here. No insight into her delusions Mental Status Exam Mental Status Exam Patient Appearance: Well Grooomed Patient Orientation: Person and Situation Level of Consciousness: Awake and Appropriate Patient Behavior: Guarded and Passive Mood Description: Withdrawn Affect Description: Constricted Ability to Follow Directions: Fair Speech Pattern: Clear Hallucinations: None Delusions: Paranoid Ideation Thought Process: Distracted and Slowed Thinking Thought Content: positive for [place] and positive for Circumstantial Judgement: Fair Diagnostics Vital Signs (24Hr): Vital Signs - 24 hr 07/06/22 18:00 Temperature 97.2 F Pulse Rate 71 Respiratory Rate 16 Blood Pressure 125/71 Pulse Oximetry 94 Oxygen Delivery Method Room Air BMI result Body Mass Index 38.7 Labs 07/01/22 14:07 07/01/22 14:07 Labs: Laboratory Results - last 48 hr 07/05/22 07/05/22 07/05/22 11:48 16:24 20:15 POC Glucose 121 H 178 H 135 H 07/06/22 07/06/22 07/06/22 07:51 11:25 16:29 POC Glucose 152 H 246 H 149 H 07/06/22 07/07/22 19:47 07:35 POC Glucose 172 H 118 H Imaging Radiology Impressions: ITS Impressions Brain MRI 07/02/22 21:00 IMPRESSION: 1. No acute intracranial abnormalities. 2. Moderate underlying microangiopathy and generalized cerebral volume loss. Chronic lacunar infarcts of the cerebellum. Medications Medications Current Medications Acetaminophen (Acetaminophen 325 Mg Tablet) 650 mg PO Q6H PRN PRN Reason: Headache/Pain Mild Scale (1-3) Al Hydroxide/Mg Hydroxide (Magnesium Hydrox/Alum Hydrox 30 Ml Oral.Susp) 30 ml PO Q6H PRN PRN Reason: Heartburn/Nausea Albuterol Sulfate (Albuterol Sulfate 90 Mcg 8 Gm Inhaler) 2 puff INHALE RQ6H [facility] Last Admin: 07/07/22 05:53 Dose: Not Given Amoxicillin/Clavulanate Potassium (Amoxicillin/Potassium Clav 500 Mg Tablet) 500 mg PO BID [facility] Last Admin: 07/07/22 09:27 Dose: 500 mg Insulin Glargine (Insulin Glargine,Hum.Rec.Anlog 100 Unit/Ml 10 Ml Vial) 17 unit SUBCUT DAILY [facility] Last Admin: 07/07/22 09:26 Dose: 17 unit Insulin Human Lispro (Insulin Lispro 100 Unit/Ml 3 Ml Vial) 0 unit SUBCUT QIDACHS [facility]; Protocol Last Admin: 07/07/22 08:56 Dose: Not Given Levothyroxine Sodium (Levothyroxine Sodium 75 Mcg Tablet) 75 mcg PO DAILY@0600 [facility] Last Admin: 07/07/22 05:44 Dose: 75 mcg Lorazepam (Lorazepam 0.5 Mg Tablet) 0.5 mg PO BID [facility] Last Admin: 07/07/22 09:28 Dose: 0.5 mg Magnesium Hydroxide (Milk Of Magnesia 30 Ml Oral.Susp) 30 ml PO DAILY PRN PRN Reason: Constipation Metformin HCl (Metformin Hcl Er 500 Mg Tab.Er.24h) 1,000 mg PO BIDWM [facility] Last Admin: 07/07/22 09:27 Dose: 1,000 mg Pravastatin Sodium (Pravastatin Sodium 20 Mg Tablet) 20 mg PO BEDTIME [facility] Last Admin: 07/06/22 20:13 Dose: 20 mg Propranolol HCl (Propranolol Hcl La 80 Mg Cap.Sa.24h) 160 mg PO DAILY [facility]; Protocol Last Admin: 07/07/22 09:27 Dose: 160 mg Risperidone (Risperidone 1 Mg Tablet) 1 mg PO BID [facility] Last Admin: 07/07/22 09:27 Dose: 1 mg Rivastigmine Tartrate (Rivastigmine Tartrate 1.5 Mg Capsule) 1.5 mg PO BID [facility] Last Admin: 07/07/22 09:27 Dose: 1.5 mg Tolterodine Tartrate (Tolterodine Tartrate La 4 Mg Cap.Er.24h) 4 mg PO DAILY [facility] Last Admin: 07/07/22 09:27 Dose: 4 mg Trazodone HCl (Trazodone Hcl 50 Mg Tablet) 50 mg PO BEDTIME PRN PRN Reason: Insomnia Allergies Allergies Allergy/AdvReac Type Severity Reaction Status Date / Time combi-patch (hormone) Allergy Unknown Unknown Uncoded 07/01/22 11:51 Sulfamethoxazole Allergy Unknown Unknown Uncoded 07/01/22 11:51 Assessment & Plan Assessment & Plan (1) Vascular dementia with delusions: Status: Acute Code(s): F01.52 - Vascular dementia, unspecified severity, with psychotic disturbance Plan Mrs. Cool is a 77 year old woman brought via EMS to [facility] [place] [place] ED due to delusions of having an affair, increase agitation and memory/cog declined. Changes have been going on for a year but recently increasingly more intense in terms of delusions and agitation. Medical work up in ED include CBC unremarkable. CMP also unremarkable. UA suggestive of UTI pending culture. Do NOT suspect pt is delirious as attention is fairly intact and given progressive behavioral and cognitive changes may be better explained by dementing process. Her pattern of impairment is consistent with vascular dementia- except for language impairment, but her orientation is intact (also another finding not consistent with delirium process). She may have mixed etiology.pt scored 16/30 with most impairments on executive function, visuospatial (0/5), naming (1/3), language fluency and recall. Orientation is intact. 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 PLAN 1. Initial plan was for pt to start medication and follow up OP but she continues to present as agitated and targeting . Also, lacks insight to symptoms and need for treatment. Pt insists on driving which is highly concerning given MOCA results showing severe impairments in visuospatial and executive function. Inpatient psych at this point. 2. Continue risperidone and exelon Reason for contiued inpatient stay Substantial Risk for: inability to function, rapid decompensation and med/psych decompensation Time Spent With Patient Time: Total time managing care of this patient today _20___ minutes.
[2022-07-07 11:30] LABS: Glucose, Whole Blood 131 mg/dL (60-115)
[2022-07-07 16:46] LABS: Glucose, Whole Blood 138 mg/dL (60-115)
[2022-07-07 18:00] VITALS: PULSE 72; RESP 16; TEMP 36.6; O2SAT 98
[2022-07-07] MEDS: Pravastatin Sodium 20 MG TABLET PO (20:41)
--- NOTE | 2022-07-07 22:08 | PC.NURSE ---
pt was agitated when given night meds. pt refused POC.
[2022-07-08 04:53] LABS: Glucose, Whole Blood 167 mg/dL (60-115)
[2022-07-08] MEDS: Levothyroxine Sodium 75 MCG TABLET PO (06:40)
[2022-07-08 07:48] LABS: Glucose, Whole Blood 193 mg/dL (60-115)
[2022-07-08] MEDS: Insulin Glargine,Hum.rec.anlog 100 UNIT/ML 10 ML VIAL 17 UNIT SUBCUT (08:09)
[2022-07-08] MEDS: Insulin Lispro 100 UNIT/ML 3 ML VIAL SUBCUT ×3 (08:09→22:16)
[2022-07-08] MEDS: Tolterodine Tartrate LA 4 MG CAP.ER.24H PO (08:10)
[2022-07-08] MEDS: Propranolol HCL LA 80 MG CAP.SA.24H 160 MG PO (08:10)
[2022-07-08] MEDS: LORazepam 0.5 MG TABLET PO ×2 (08:10→22:07)
[2022-07-08] MEDS: Amoxicillin/Potassium Clav 500 MG TABLET PO ×2 (08:10→22:07)
[2022-07-08] MEDS: metFORMIN HCl ER 500 MG TAB.ER.24H 1000 MG PO ×2 (08:10→18:59)
[2022-07-08] MEDS: Rivastigmine Tartrate 1.5 MG CAPSULE PO ×2 (08:10→22:07)
[2022-07-08] MEDS: risperiDONE 1 MG TABLET PO ×2 (08:10→22:07)
[2022-07-08 11:53] LABS: Glucose, Whole Blood 171 mg/dL (60-115)
[2022-07-08] MEDS: Loperamide HCl 2 MG CAPSULE PO ×2 (12:11→18:59)
--- NOTE | 2022-07-08 12:40 | HO.PSYCHPN ---
Subjective Subjective Date of Service: 07/08/22 Reason For Visit: delusions Subjective Notes: Conditional Voluntary Healthcare Proxy: Yes Interim History: Pt tearful asking to be discharged home. She continues to report she is here because his had affair and children are against her. Pt last night calling family members telling them that she was scheduled to have surgery and was told she was not going to make it. Pt continues with delusions, confusion increases at night, evening. did not sleep well. Medication Compliance: Yes Side effects from medications: No Attending Groups: Intermittent Review of Systems Review of Systems Constitutional : No Weight loss, No Fever, No Chills, No Night Sweats, No Fatigue, No Malaise ENT/Mouth : No Hearing loss, No Ear Pain, No Nasal Congestion, No Sinus Pain, No Hoarseness, No sore throat, No Rhinorrhea, No Swallowing Difficulty Eyes: No Eye Pain, No Swelling, No Redness, No Foreign Body, No Discharge, No Vision Changes Cardiovascular : No Chest Pain, No SOB, No Dyspnea on Exertion, No Orthopnea, No Edema, No Palpitations Respiratory : No Cough, No Sputum, No Wheezing, No Smoke Exposure, No Dyspnea Gastrointestinal : No Nausea, No Vomiting, No Diarrhea, No Constipation, No abdominal Pain, No Hematochezia, No Melena Genitourinary : no irregular bleeding, No Dysuria, No Urinary Frequency, No Hematuria, No Urinary Incontinence, No Urgency, No Flank Pain, No Urinary Flow Changes, No Hesitancy Musculoskeletal : No joint pain, No Myalgias, No Joint Swelling Skin : No Skin Lesions, No rash Neuro : No Weakness, No Numbness, No Paresthesias, No Loss of Consciousness, No Dizziness, No Headache Psych : Patient denies suicidal or homicidal ideation Heme/Lymph: No Bruising, No Bleeding,No Lymphadenopathy Endocrine : No Polyuria, No Polydipsia, No Temperature Intolerance Mental Status Exam Mental Status Exam Narrative: Appearance: casually groomed, good hygiene, tearful but not agitated. Behavior: cooperative Psychomotor: no agitation or retardation noted Speech: clear, some difficulty finding words is evident, spontaneous TP: repetitive- goal directed wanting to go home. TC: delusions related to having affair, wanting to go home SI: none HI: none VH/AH: none Insight/judgment: impaired x 2. Memory/cog: alert, oriented month, place, date, year, not so much situation- thinks family conspiring against her because father has affair and brought her to hospital to keep her away from them. MOCA on 07/02/2022 scored 16/30 with most impairments on executive function, visuospatial (0/5), naming (1/3), language fluency (0/1) and recall (2/5). Orientation is intact. 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 Diagnostics Vital Signs (24Hr): Vital Signs - 24 hr 07/09/22 18:00 Temperature 98.6 F Pulse Rate 86 Respiratory Rate 18 Blood Pressure 140/74 H Pulse Oximetry 93 Oxygen Delivery Method Room Air BMI result Body Mass Index 38.7 Labs 07/01/22 14:07 07/09/22 08:09 Labs: Laboratory Results - last 48 hr 07/08/22 07/08/22 07/09/22 11:49 22:06 08:09 Creatinine 0.98 Estim Creat Clear Calc 59.1 Estimated GFR 55 POC Glucose 171 H 188 H 07/09/22 07/09/22 07/10/22 08:35 19:59 07:56 Creatinine Estim Creat Clear Calc Estimated GFR POC Glucose 161 H 224 H 200 H Imaging Radiology Impressions: ITS Impressions Brain MRI 07/02/22 21:00 IMPRESSION: 1. No acute intracranial abnormalities. 2. Moderate underlying microangiopathy and generalized cerebral volume loss. Chronic lacunar infarcts of the cerebellum. Medications Medications Current Medications Acetaminophen (Acetaminophen 325 Mg Tablet) 650 mg PO Q6H PRN PRN Reason: Headache/Pain Mild Scale (1-3) Al Hydroxide/Mg Hydroxide (Magnesium Hydrox/Alum Hydrox 30 Ml Oral.Susp) 30 ml PO Q6H PRN PRN Reason: Heartburn/Nausea Albuterol Sulfate (Albuterol Sulfate 90 Mcg 8 Gm Inhaler) 2 puff INHALE RQ6H [facility] Last Admin: 07/10/22 07:53 Dose: Not Given Amoxicillin/Clavulanate Potassium (Amoxicillin/Potassium Clav 500 Mg Tablet) 500 mg PO BID [facility] Last Admin: 07/10/22 08:10 Dose: 500 mg Insulin Glargine (Insulin Glargine,Hum.Rec.Anlog 100 Unit/Ml 10 Ml Vial) 17 unit SUBCUT DAILY [facility] Last Admin: 07/10/22 08:08 Dose: 17 unit Insulin Human Lispro (Insulin Lispro 100 Unit/Ml 3 Ml Vial) 0 unit SUBCUT QIDACHS [facility]; Protocol Last Admin: 07/10/22 08:08 Dose: 2 unit Levothyroxine Sodium (Levothyroxine Sodium 75 Mcg Tablet) 75 mcg PO DAILY@0600 [facility] Last Admin: 07/10/22 05:44 Dose: 75 mcg Loperamide HCl (Loperamide Hcl 2 Mg Capsule) 2 mg PO Q4H PRN PRN Reason: loose stools Last Admin: 07/08/22 18:59 Dose: 2 mg Lorazepam (Lorazepam 0.5 Mg Tablet) 0.5 mg PO BID [facility] Last Admin: 07/09/22 19:46 Dose: 0.5 mg Magnesium Hydroxide (Milk Of Magnesia 30 Ml Oral.Susp) 30 ml PO DAILY PRN PRN Reason: Constipation Metformin HCl (Metformin Hcl Er 500 Mg Tab.Er.24h) 1,000 mg PO BIDWM [facility] Last Admin: 07/10/22 08:12 Dose: 1,000 mg Mirtazapine (Mirtazapine 15 Mg Tablet) 15 mg PO BEDTIME [facility] Last Admin: 07/09/22 19:46 Dose: 15 mg Pravastatin Sodium (Pravastatin Sodium 20 Mg Tablet) 20 mg PO BEDTIME [facility] Last Admin: 07/09/22 19:46 Dose: 20 mg Propranolol HCl (Propranolol Hcl La 80 Mg Cap.Sa.24h) 160 mg PO DAILY [facility]; Protocol Last Admin: 07/09/22 09:36 Dose: Not Given Quetiapine Fumarate (Quetiapine Fumarate 50 Mg Tablet) 50 mg PO Q6H PRN PRN Reason: agitation Risperidone (Risperidone 1 Mg Tablet) 1 mg PO TID [facility] Last Admin: 07/10/22 08:10 Dose: 1 mg Rivastigmine Tartrate (Rivastigmine Tartrate 1.5 Mg Capsule) 1.5 mg PO BID [facility] Last Admin: 07/10/22 08:10 Dose: 1.5 mg Tolterodine Tartrate (Tolterodine Tartrate La 4 Mg Cap.Er.24h) 4 mg PO DAILY [facility] Last Admin: 07/10/22 08:10 Dose: 4 mg Allergies Allergies Allergy/AdvReac Type Severity Reaction Status Date / Time combi-patch (hormone) Allergy Unknown Unknown Uncoded 07/01/22 11:51 Sulfamethoxazole Allergy Unknown Unknown Uncoded 07/01/22 11:51 Assessment & Plan Assessment & Plan (1) Vascular dementia with delusions: Status: Acute Code(s): F01.52 - Vascular dementia, unspecified severity, with psychotic disturbance Plan Mrs. Cool is a 77 year old woman brought via EMS to [facility] ED due to delusions of having an affair, increase agitation and memory/cog declined. Changes have been going on for a year but recently increasingly more intense in terms of delusions and agitation. Medical work up in ED include CBC unremarkable. CMP also unremarkable. UA suggestive of UTI pending culture. Do NOT suspect pt is delirious as attention is fairly intact and given progressive behavioral and cognitive changes may be better explained by dementing process. Her pattern of impairment is consistent with vascular dementia- except for language impairment, but her orientation is intact (also another finding not consistent with delirium process). She may have mixed etiology.pt scored 16/30 with most impairments on executive function, visuospatial (0/5), naming (1/3), language fluency and recall. Orientation is intact. 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 PLAN 07/08 continue current medications. will titrate risperidone. Reason for contiued inpatient stay Substantial Risk for: inability to function Time Spent With Patient Time: Total time managing care of this patient today ____ minutes.
[2022-07-08 18:00] VITALS: BP 116/83; PULSE 91; RESP 18; TEMP 36.6; O2SAT 96
[2022-07-08] MEDS: Mirtazapine 15 MG TABLET PO (22:07)
[2022-07-08] MEDS: Pravastatin Sodium 20 MG TABLET PO (22:07)
[2022-07-08 22:28] LABS: Glucose, Whole Blood 188 mg/dL (60-115)
[2022-07-09 08:38] LABS: Creatinine Clr Calc Pharmacy 59.1; Estimated Glomerular Filt Rate 55
[2022-07-09 08:39] LABS: Glucose, Whole Blood 161 mg/dL (60-115)
--- NOTE | 2022-07-09 12:43 | P.PNPSI_ITS ---
Subjective Subjective Date of Service: 07/09/22 Reason For Visit: delusions Subjective Notes: Conditional Voluntary Interim History: Pt did not sleep well last night again- added remeron. Pt combative in evening, confused with male peer who she thought it was her and staff keeping her away from him. Pt tearful reports my children will pay for this, I won't tell you what I will do. Pt states his confessed to her that he in fact had affair. He states he can see it in his eyes, despite admitting he did not say anything. Medication Compliance: Yes Side effects from medications: No Attending Groups: Intermittent Review of Systems Review of Systems Constitutional : No Weight loss, No Fever, No Chills, No Night Sweats, No Fatigue, No Malaise ENT/Mouth : No Hearing loss, No Ear Pain, No Nasal Congestion, No Sinus Pain, No Hoarseness, No sore throat, No Rhinorrhea, No Swallowing Difficulty Eyes: No Eye Pain, No Swelling, No Redness, No Foreign Body, No Discharge, No Vision Changes Cardiovascular : No Chest Pain, No SOB, No Dyspnea on Exertion, No Orthopnea, No Edema, No Palpitations Respiratory : No Cough, No Sputum, No Wheezing, No Smoke Exposure, No Dyspnea Gastrointestinal : No Nausea, No Vomiting, No Diarrhea, No Constipation, No abdominal Pain, No Hematochezia, No Melena Genitourinary : no irregular bleeding, No Dysuria, No Urinary Frequency, No Hematuria, No Urinary Incontinence, No Urgency, No Flank Pain, No Urinary Flow Changes, No Hesitancy Musculoskeletal : No joint pain, No Myalgias, No Joint Swelling Skin : No Skin Lesions, No rash Neuro : No Weakness, No Numbness, No Paresthesias, No Loss of Consciousness, No Dizziness, No Headache Psych : Patient denies suicidal or homicidal ideation Heme/Lymph: No Bruising, No Bleeding,No Lymphadenopathy Endocrine : No Polyuria, No Polydipsia, No Temperature Intolerance Mental Status Exam Mental Status Exam Narrative: Appearance: casually groomed, good hygiene, tearful but not agitated. Behavior: cooperative Psychomotor: no agitation or retardation noted Speech: clear, some difficulty finding words is evident, spontaneous TP: repetitive- goal directed wanting to go home. TC: delusions related to having affair, wanting to go home SI: none HI: none VH/AH: none Insight/judgment: impaired x 2. Memory/cog: alert, oriented month, place, date, year, not so much situation- thinks family conspiring against her because father has affair and brought her to hospital to keep her away from them. MOCA on 07/02/2022 scored 16/30 with most impairments on executive function, visuospatial (0/5), naming (1/3), language fluency (0/1) and recall (2/5). Orientation is intact. 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 Diagnostics Vital Signs (24Hr): Vital Signs - 24 hr 07/09/22 18:00 Temperature 98.6 F Pulse Rate 86 Respiratory Rate 18 Blood Pressure 140/74 H Pulse Oximetry 93 Oxygen Delivery Method Room Air BMI result Body Mass Index 38.7 Labs 07/01/22 14:07 07/09/22 08:09 Labs: Laboratory Results - last 48 hr 07/08/22 07/08/22 07/09/22 11:49 22:06 08:09 Creatinine 0.98 Estim Creat Clear Calc 59.1 Estimated GFR 55 POC Glucose 171 H 188 H 07/09/22 07/09/22 07/10/22 08:35 19:59 07:56 Creatinine Estim Creat Clear Calc Estimated GFR POC Glucose 161 H 224 H 200 H Imaging Radiology Impressions: ITS Impressions Brain MRI 07/02/22 21:00 IMPRESSION: 1. No acute intracranial abnormalities. 2. Moderate underlying microangiopathy and generalized cerebral volume loss. Chronic lacunar infarcts of the cerebellum. Medications Medications Current Medications Acetaminophen (Acetaminophen 325 Mg Tablet) 650 mg PO Q6H PRN PRN Reason: Headache/Pain Mild Scale (1-3) Al Hydroxide/Mg Hydroxide (Magnesium Hydrox/Alum Hydrox 30 Ml Oral.Susp) 30 ml PO Q6H PRN PRN Reason: Heartburn/Nausea Albuterol Sulfate (Albuterol Sulfate 90 Mcg 8 Gm Inhaler) 2 puff INHALE RQ6H [facility] Last Admin: 07/10/22 07:53 Dose: Not Given Amoxicillin/Clavulanate Potassium (Amoxicillin/Potassium Clav 500 Mg Tablet) 500 mg PO BID [facility] Last Admin: 07/10/22 08:10 Dose: 500 mg Insulin Glargine (Insulin Glargine,Hum.Rec.Anlog 100 Unit/Ml 10 Ml Vial) 17 unit SUBCUT DAILY [facility] Last Admin: 07/10/22 08:08 Dose: 17 unit Insulin Human Lispro (Insulin Lispro 100 Unit/Ml 3 Ml Vial) 0 unit SUBCUT QIDACHS [facility]; Protocol Last Admin: 07/10/22 08:08 Dose: 2 unit Levothyroxine Sodium (Levothyroxine Sodium 75 Mcg Tablet) 75 mcg PO DAILY@0600 [facility] Last Admin: 07/10/22 05:44 Dose: 75 mcg Loperamide HCl (Loperamide Hcl 2 Mg Capsule) 2 mg PO Q4H PRN PRN Reason: loose stools Last Admin: 07/08/22 18:59 Dose: 2 mg Lorazepam (Lorazepam 0.5 Mg Tablet) 0.5 mg PO BID [facility] Last Admin: 07/09/22 19:46 Dose: 0.5 mg Magnesium Hydroxide (Milk Of Magnesia 30 Ml Oral.Susp) 30 ml PO DAILY PRN PRN Reason: Constipation Metformin HCl (Metformin Hcl Er 500 Mg Tab.Er.24h) 1,000 mg PO BIDWM [facility] Last Admin: 07/10/22 08:12 Dose: 1,000 mg Mirtazapine (Mirtazapine 15 Mg Tablet) 15 mg PO BEDTIME [facility] Last Admin: 07/09/22 19:46 Dose: 15 mg Pravastatin Sodium (Pravastatin Sodium 20 Mg Tablet) 20 mg PO BEDTIME [facility] Last Admin: 07/09/22 19:46 Dose: 20 mg Propranolol HCl (Propranolol Hcl La 80 Mg Cap.Sa.24h) 160 mg PO DAILY [facility]; Protocol Last Admin: 07/09/22 09:36 Dose: Not Given Quetiapine Fumarate (Quetiapine Fumarate 50 Mg Tablet) 50 mg PO Q6H PRN PRN Reason: agitation Risperidone (Risperidone 1 Mg Tablet) 1 mg PO TID [facility] Last Admin: 07/10/22 08:10 Dose: 1 mg Rivastigmine Tartrate (Rivastigmine Tartrate 1.5 Mg Capsule) 1.5 mg PO BID [facility] Last Admin: 07/10/22 08:10 Dose: 1.5 mg Tolterodine Tartrate (Tolterodine Tartrate La 4 Mg Cap.Er.24h) 4 mg PO DAILY [facility] Last Admin: 07/10/22 08:10 Dose: 4 mg Allergies Allergies Allergy/AdvReac Type Severity Reaction Status Date / Time combi-patch (hormone) Allergy Unknown Unknown Uncoded 07/01/22 11:51 Sulfamethoxazole Allergy Unknown Unknown Uncoded 07/01/22 11:51 Assessment & Plan Assessment & Plan (1) Vascular dementia with delusions: Status: Acute Code(s): F01.52 - Vascular dementia, unspecified severity, with psychotic disturbance Plan Mrs. Cool is a 77 year old woman brought via EMS to [facility] ED due to delusions of having an affair, increase agitation and memory/cog declined. Changes have been going on for a year but recently increasingly more intense in terms of delusions and agitation. Medical work up in ED include CBC unremarkable. CMP also unremarkable. UA suggestive of UTI pending culture. Do NOT suspect pt is delirious as attention is fairly intact and given progressive behavioral and cognitive changes may be better explained by dementing process. Her pattern of impairment is consistent with vascular dementia- except for language impairment, but her orientation is intact (also another finding not consistent with delirium process). She may have mixed etiology.pt scored 16/30 with most impairments on executive function, visuospatial (0/5), naming (1/3), language fluency and recall. Orientation is intact. 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 PLAN 07/08 continue current medications. will titrate risperidone. 07/09 remeron 15mg po qhs, increase risperidone 1mg po TID. Reason for contiued inpatient stay Substantial Risk for: inability to function Time Spent With Patient Time: Total time managing care of this patient today ____ minutes.
[2022-07-09 18:00] VITALS: BP 140/74; PULSE 86; RESP 18; TEMP 37; O2SAT 93
[2022-07-09] MEDS: Amoxicillin/Potassium Clav 500 MG TABLET PO (19:46)
[2022-07-09] MEDS: Pravastatin Sodium 20 MG TABLET PO (19:46)
[2022-07-09] MEDS: LORazepam 0.5 MG TABLET PO (19:46)
[2022-07-09] MEDS: Mirtazapine 15 MG TABLET PO (19:46)
[2022-07-09] MEDS: risperiDONE 1 MG TABLET PO (19:47)
[2022-07-09] MEDS: Rivastigmine Tartrate 1.5 MG CAPSULE PO (19:47)
[2022-07-09] MEDS: metFORMIN HCl ER 500 MG TAB.ER.24H 1000 MG PO (20:01)
[2022-07-09] MEDS: Insulin Lispro 100 UNIT/ML 3 ML VIAL SUBCUT (20:09)
[2022-07-09 20:24] LABS: Glucose, Whole Blood 224 mg/dL (60-115)
[2022-07-10] MEDS: Levothyroxine Sodium 75 MCG TABLET PO (05:44)
[2022-07-10 06:00] VITALS: BP 88/66; PULSE 86; RESP 16; TEMP 36.4; O2SAT 96
[2022-07-10 07:59] LABS: Glucose, Whole Blood 200 mg/dL (60-115)
[2022-07-10] MEDS: Insulin Lispro 100 UNIT/ML 3 ML VIAL SUBCUT ×2 (08:08→16:31)
[2022-07-10] MEDS: Insulin Glargine,Hum.rec.anlog 100 UNIT/ML 10 ML VIAL 17 UNIT SUBCUT (08:08)
[2022-07-10] MEDS: risperiDONE 1 MG TABLET PO ×3 (08:10→20:33)
[2022-07-10] MEDS: Rivastigmine Tartrate 1.5 MG CAPSULE PO ×2 (08:10→20:33)
[2022-07-10] MEDS: Tolterodine Tartrate LA 4 MG CAP.ER.24H PO (08:10)
[2022-07-10] MEDS: Amoxicillin/Potassium Clav 500 MG TABLET PO ×2 (08:10→20:34)
[2022-07-10] MEDS: metFORMIN HCl ER 500 MG TAB.ER.24H 1000 MG PO ×2 (08:12→16:34)
--- NOTE | 2022-07-10 10:32 | P.PNPSI_ITS ---
Subjective Subjective Date of Service: 07/10/22 Reason For Visit: delusions Subjective Notes: Conditional Voluntary Interim History: Pt continues to report that having affair and this being reason of this hospitalization. She feels betrayed by her children and . No SI/HI. wanting to leave hospital soon. She takes medications intermittently. no overt behavioral concerns. Medication Compliance: Yes Review of Systems Review of Systems Constitutional : No Weight loss, No Fever, No Chills, No Night Sweats, No Fatigue, No Malaise ENT/Mouth : No Hearing loss, No Ear Pain, No Nasal Congestion, No Sinus Pain, No Hoarseness, No sore throat, No Rhinorrhea, No Swallowing Difficulty Eyes: No Eye Pain, No Swelling, No Redness, No Foreign Body, No Discharge, No Vision Changes Cardiovascular : No Chest Pain, No SOB, No Dyspnea on Exertion, No Orthopnea, No Edema, No Palpitations Respiratory : No Cough, No Sputum, No Wheezing, No Smoke Exposure, No Dyspnea Gastrointestinal : No Nausea, No Vomiting, No Diarrhea, No Constipation, No abdominal Pain, No Hematochezia, No Melena Genitourinary : no irregular bleeding, No Dysuria, No Urinary Frequency, No Hematuria, No Urinary Incontinence, No Urgency, No Flank Pain, No Urinary Flow Changes, No Hesitancy Musculoskeletal : No joint pain, No Myalgias, No Joint Swelling Skin : No Skin Lesions, No rash Neuro : No Weakness, No Numbness, No Paresthesias, No Loss of Consciousness, No Dizziness, No Headache Psych : Patient denies suicidal or homicidal ideation Heme/Lymph: No Bruising, No Bleeding,No Lymphadenopathy Endocrine : No Polyuria, No Polydipsia, No Temperature Intolerance Mental Status Exam Mental Status Exam Narrative: Appearance: casually groomed, good hygiene, tearful but not agitated. Behavior: cooperative Psychomotor: no agitation or retardation noted Speech: clear, some difficulty finding words is evident, spontaneous TP: repetitive- goal directed wanting to go home. TC: delusions related to having affair, wanting to go home SI: none HI: none VH/AH: none Insight/judgment: impaired x 2. Memory/cog: alert, oriented month, place, date, year, not so much situation- thinks family conspiring against her because father has affair and brought her to hospital to keep her away from them. MOCA on 07/02/2022 scored 16/30 with most impairments on executive function, visuospatial (0/5), naming (1/3), language fluency (0/1) and recall (2/5). Orientation is intact. 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 Diagnostics Vital Signs (24Hr): Vital Signs - 24 hr 07/12/22 18:00 Temperature 98 F Pulse Rate 99 Respiratory Rate 18 Blood Pressure 109/54 L Pulse Oximetry 96 Oxygen Delivery Method Room Air BMI result Body Mass Index 38.7 Labs 07/01/22 14:07 07/09/22 08:09 Labs: Laboratory Results - last 48 hr 07/11/22 07/11/22 07/11/22 11:36 16:18 20:32 POC Glucose 259 H 145 H 186 H 07/12/22 07/12/22 07/12/22 07:46 11:45 16:21 POC Glucose 204 H 147 H 207 H 07/12/22 07/13/22 20:30 08:38 POC Glucose 154 H 164 H Imaging Radiology Impressions: ITS Impressions Brain MRI 07/02/22 21:00 IMPRESSION: 1. No acute intracranial abnormalities. 2. Moderate underlying microangiopathy and generalized cerebral volume loss. Chronic lacunar infarcts of the cerebellum. Medications Medications Current Medications Acetaminophen (Acetaminophen 325 Mg Tablet) 650 mg PO Q6H PRN PRN Reason: Headache/Pain Mild Scale (1-3) Last Admin: 07/10/22 22:11 Dose: 650 mg Al Hydroxide/Mg Hydroxide (Magnesium Hydrox/Alum Hydrox 30 Ml Oral.Susp) 30 ml PO Q6H PRN PRN Reason: Heartburn/Nausea Albuterol Sulfate (Albuterol Sulfate 90 Mcg 8 Gm Inhaler) 2 puff INHALE RQ6H [facility] Last Admin: 07/13/22 06:21 Dose: 2 puff Amoxicillin/Clavulanate Potassium (Amoxicillin/Potassium Clav 500 Mg Tablet) 500 mg PO BID [facility] Last Admin: 07/13/22 08:34 Dose: 500 mg Insulin Glargine (Insulin Glargine,Hum.Rec.Anlog 100 Unit/Ml 10 Ml Vial) 17 unit SUBCUT DAILY [facility] Last Admin: 07/13/22 08:35 Dose: 17 unit Insulin Human Lispro (Insulin Lispro 100 Unit/Ml 3 Ml Vial) 0 unit SUBCUT QIDACHS [facility]; Protocol Last Admin: 07/13/22 08:49 Dose: 2 unit Levothyroxine Sodium (Levothyroxine Sodium 75 Mcg Tablet) 75 mcg PO DAILY@0600 [facility] Last Admin: 07/13/22 06:21 Dose: 75 mcg Loperamide HCl (Loperamide Hcl 2 Mg Capsule) 2 mg PO Q4H PRN PRN Reason: loose stools Last Admin: 07/12/22 20:37 Dose: 2 mg Lorazepam (Lorazepam 0.5 Mg Tablet) 0.5 mg PO BID [facility] Last Admin: 07/13/22 08:34 Dose: 0.5 mg Magnesium Hydroxide (Milk Of Magnesia 30 Ml Oral.Susp) 30 ml PO DAILY PRN PRN Reason: Constipation Metformin HCl (Metformin Hcl Er 500 Mg Tab.Er.24h) 1,000 mg PO BIDWM [facility] Last Admin: 07/13/22 08:34 Dose: 1,000 mg Mirtazapine (Mirtazapine 30 Mg Tablet) 30 mg PO BEDTIME [facility] Last Admin: 07/12/22 20:37 Dose: 30 mg Pravastatin Sodium (Pravastatin Sodium 20 Mg Tablet) 20 mg PO BEDTIME [facility] Last Admin: 07/12/22 20:37 Dose: 20 mg Propranolol HCl (Propranolol Hcl La 80 Mg Cap.Sa.24h) 160 mg PO BEDTIME [facility]; Protocol Last Admin: 07/12/22 20:36 Dose: 160 mg Quetiapine Fumarate (Quetiapine Fumarate 50 Mg Tablet) 50 mg PO Q6H PRN PRN Reason: agitation Last Admin: 07/11/22 22:44 Dose: 50 mg Risperidone (Risperidone 2 Mg Tablet) 2 mg PO BID [facility] Last Admin: 07/13/22 08:34 Dose: 2 mg Rivastigmine Tartrate (Rivastigmine Tartrate 1.5 Mg Capsule) 1.5 mg PO BID [facility] Last Admin: 07/13/22 08:34 Dose: 1.5 mg Tolterodine Tartrate (Tolterodine Tartrate La 4 Mg Cap.Er.24h) 4 mg PO DAILY [facility] Last Admin: 07/13/22 08:34 Dose: 4 mg Allergies Allergies Allergy/AdvReac Type Severity Reaction Status Date / Time estradiol [From CombiPatch] Allergy Unknown Verified 07/11/22 09:19 norethindrone Allergy Unknown Verified 07/11/22 09:19 [From CombiPatch] sulfamethoxazole Allergy Unknown Verified 07/11/22 09:19 Assessment & Plan Assessment & Plan (1) Vascular dementia with delusions: Status: Acute Code(s): F01.52 - Vascular dementia, unspecified severity, with psychotic disturbance Plan Mrs. Cool is a 77 year old woman brought via EMS to [facility] ED due to delusions of having an affair, increase agitation and memory/cog declined. Changes have been going on for a year but recently increasingly more intense in terms of delusions and agitation. Medical work up in ED include CBC unremarkable. CMP also unremarkable. UA suggestive of UTI pending culture. Do NOT suspect pt is delirious as attention is fairly intact and given progressive behavioral and cognitive changes may be better explained by dementing process. Her pattern of impairment is consistent with vascular dementia- except for language impairment, but her orientation is intact (also another finding not consistent with delirium process). She may have mixed etiology.pt scored 16/30 with most impairments on executive function, visuospatial (0/5), naming (1/3), language fluency and recall. Orientation is intact. 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 PLAN 07/08 continue current medications. will titrate risperidone. 07/09 remeron 15mg po qhs, increase risperidone 1mg po TID. 07/10 increase risperidone to 2 mg po BID Reason for contiued inpatient stay Substantial Risk for: inability to function Time Spent With Patient Time: Total time managing care of this patient today ____ minutes.
[2022-07-10 16:22] LABS: Glucose, Whole Blood 203 mg/dL (60-115)
[2022-07-10 18:00] VITALS: BP 135/74; PULSE 123; RESP 17; TEMP 36.4; O2SAT 97
[2022-07-10] MEDS: LORazepam 0.5 MG TABLET PO (20:33)
[2022-07-10] MEDS: Mirtazapine 15 MG TABLET PO (20:34)
[2022-07-10] MEDS: Pravastatin Sodium 20 MG TABLET PO (20:34)
[2022-07-10 21:17] LABS: Glucose, Whole Blood 137 mg/dL (60-115)
[2022-07-10] MEDS: Acetaminophen 325 MG TABLET 650 MG PO (22:11)
[2022-07-11] MEDS: Levothyroxine Sodium 75 MCG TABLET PO (05:53)
[2022-07-11 08:17] LABS: Glucose, Whole Blood 236 mg/dL (60-115)
[2022-07-11] MEDS: risperiDONE 1 MG TABLET PO (09:41)
[2022-07-11] MEDS: Tolterodine Tartrate LA 4 MG CAP.ER.24H PO (09:43)
[2022-07-11] MEDS: Rivastigmine Tartrate 1.5 MG CAPSULE PO ×2 (09:44→20:38)
[2022-07-11] MEDS: metFORMIN HCl ER 500 MG TAB.ER.24H 1000 MG PO ×2 (09:44→16:24)
[2022-07-11] MEDS: Amoxicillin/Potassium Clav 500 MG TABLET PO ×2 (09:44→20:38)
[2022-07-11] MEDS: LORazepam 0.5 MG TABLET PO ×2 (09:46→20:38)
[2022-07-11] MEDS: Insulin Glargine,Hum.rec.anlog 100 UNIT/ML 10 ML VIAL 17 UNIT SUBCUT (09:48)
[2022-07-11 09:50] VITALS: BP 150/80; PULSE 102; RESP 18; TEMP 36.3; O2SAT 95
--- NOTE | 2022-07-11 10:38 | HO.PSYCHPN ---
Subjective Subjective Date of Service: 07/11/22 Reason For Visit: delusions Subjective Notes: Conditional Voluntary Interim History: We had family meeting discussed with family and children - pt's diagnosis results of MOCA, ACL, supports she needs in community. We also discussed role of medication in setting of vascular dementia. Pt upset about being in hospital, continues to ruminate on being unfaithful and children being on his side. Pt with some difficulty sleeping. No behavioral concerns. taking medications as prescribed. Review of Systems Review of Systems Constitutional : No Weight loss, No Fever, No Chills, No Night Sweats, No Fatigue, No Malaise ENT/Mouth : No Hearing loss, No Ear Pain, No Nasal Congestion, No Sinus Pain, No Hoarseness, No sore throat, No Rhinorrhea, No Swallowing Difficulty Eyes: No Eye Pain, No Swelling, No Redness, No Foreign Body, No Discharge, No Vision Changes Cardiovascular : No Chest Pain, No SOB, No Dyspnea on Exertion, No Orthopnea, No Edema, No Palpitations Respiratory : No Cough, No Sputum, No Wheezing, No Smoke Exposure, No Dyspnea Gastrointestinal : No Nausea, No Vomiting, No Diarrhea, No Constipation, No abdominal Pain, No Hematochezia, No Melena Genitourinary : no irregular bleeding, No Dysuria, No Urinary Frequency, No Hematuria, No Urinary Incontinence, No Urgency, No Flank Pain, No Urinary Flow Changes, No Hesitancy Musculoskeletal : No joint pain, No Myalgias, No Joint Swelling Skin : No Skin Lesions, No rash Neuro : No Weakness, No Numbness, No Paresthesias, No Loss of Consciousness, No Dizziness, No Headache Psych : Patient denies suicidal or homicidal ideation Heme/Lymph: No Bruising, No Bleeding,No Lymphadenopathy Endocrine : No Polyuria, No Polydipsia, No Temperature Intolerance Mental Status Exam Mental Status Exam Narrative: Appearance: casually groomed, good hygiene, tearful but not agitated. Behavior: cooperative Psychomotor: no agitation or retardation noted Speech: clear, some difficulty finding words is evident, spontaneous TP: repetitive- goal directed wanting to go home. TC: delusions related to having affair, wanting to go home SI: none HI: none VH/AH: none Insight/judgment: impaired x 2. Memory/cog: alert, oriented month, place, date, year, not so much situation- thinks family conspiring against her because father has affair and brought her to hospital to keep her away from them. MOCA on 07/02/2022 scored 16/30 with most impairments on executive function, visuospatial (0/5), naming (1/3), language fluency (0/1) and recall (2/5). Orientation is intact. 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 Diagnostics Vital Signs (24Hr): Vital Signs - 24 hr 07/12/22 18:00 Temperature 98 F Pulse Rate 99 Respiratory Rate 18 Blood Pressure 109/54 L Pulse Oximetry 96 Oxygen Delivery Method Room Air BMI result Body Mass Index 38.7 Labs 07/01/22 14:07 07/09/22 08:09 Labs: Laboratory Results - last 48 hr 07/11/22 07/11/22 07/11/22 11:36 16:18 20:32 POC Glucose 259 H 145 H 186 H 07/12/22 07/12/22 07/12/22 07:46 11:45 16:21 POC Glucose 204 H 147 H 207 H 07/12/22 07/13/22 20:30 08:38 POC Glucose 154 H 164 H Imaging Radiology Impressions: ITS Impressions Brain MRI 07/02/22 21:00 IMPRESSION: 1. No acute intracranial abnormalities. 2. Moderate underlying microangiopathy and generalized cerebral volume loss. Chronic lacunar infarcts of the cerebellum. Medications Medications Current Medications Acetaminophen (Acetaminophen 325 Mg Tablet) 650 mg PO Q6H PRN PRN Reason: Headache/Pain Mild Scale (1-3) Last Admin: 07/10/22 22:11 Dose: 650 mg Al Hydroxide/Mg Hydroxide (Magnesium Hydrox/Alum Hydrox 30 Ml Oral.Susp) 30 ml PO Q6H PRN PRN Reason: Heartburn/Nausea Albuterol Sulfate (Albuterol Sulfate 90 Mcg 8 Gm Inhaler) 2 puff INHALE RQ6H [facility] Last Admin: 07/13/22 06:21 Dose: 2 puff Amoxicillin/Clavulanate Potassium (Amoxicillin/Potassium Clav 500 Mg Tablet) 500 mg PO BID [facility] Last Admin: 07/13/22 08:34 Dose: 500 mg Insulin Glargine (Insulin Glargine,Hum.Rec.Anlog 100 Unit/Ml 10 Ml Vial) 17 unit SUBCUT DAILY [facility] Last Admin: 07/13/22 08:35 Dose: 17 unit Insulin Human Lispro (Insulin Lispro 100 Unit/Ml 3 Ml Vial) 0 unit SUBCUT QIDACHS [facility]; Protocol Last Admin: 07/13/22 08:49 Dose: 2 unit Levothyroxine Sodium (Levothyroxine Sodium 75 Mcg Tablet) 75 mcg PO DAILY@0600 [facility] Last Admin: 07/13/22 06:21 Dose: 75 mcg Loperamide HCl (Loperamide Hcl 2 Mg Capsule) 2 mg PO Q4H PRN PRN Reason: loose stools Last Admin: 07/12/22 20:37 Dose: 2 mg Lorazepam (Lorazepam 0.5 Mg Tablet) 0.5 mg PO BID [facility] Last Admin: 07/13/22 08:34 Dose: 0.5 mg Magnesium Hydroxide (Milk Of Magnesia 30 Ml Oral.Susp) 30 ml PO DAILY PRN PRN Reason: Constipation Metformin HCl (Metformin Hcl Er 500 Mg Tab.Er.24h) 1,000 mg PO BIDWM [facility] Last Admin: 07/13/22 08:34 Dose: 1,000 mg Mirtazapine (Mirtazapine 30 Mg Tablet) 30 mg PO BEDTIME [facility] Last Admin: 07/12/22 20:37 Dose: 30 mg Pravastatin Sodium (Pravastatin Sodium 20 Mg Tablet) 20 mg PO BEDTIME [facility] Last Admin: 07/12/22 20:37 Dose: 20 mg Propranolol HCl (Propranolol Hcl La 80 Mg Cap.Sa.24h) 160 mg PO BEDTIME [facility]; Protocol Last Admin: 07/12/22 20:36 Dose: 160 mg Quetiapine Fumarate (Quetiapine Fumarate 50 Mg Tablet) 50 mg PO Q6H PRN PRN Reason: agitation Last Admin: 07/11/22 22:44 Dose: 50 mg Risperidone (Risperidone 2 Mg Tablet) 2 mg PO BID [facility] Last Admin: 07/13/22 08:34 Dose: 2 mg Rivastigmine Tartrate (Rivastigmine Tartrate 1.5 Mg Capsule) 1.5 mg PO BID [facility] Last Admin: 07/13/22 08:34 Dose: 1.5 mg Tolterodine Tartrate (Tolterodine Tartrate La 4 Mg Cap.Er.24h) 4 mg PO DAILY [facility] Last Admin: 07/13/22 08:34 Dose: 4 mg Allergies Allergies Allergy/AdvReac Type Severity Reaction Status Date / Time estradiol [From CombiPatch] Allergy Unknown Verified 07/11/22 09:19 norethindrone Allergy Unknown Verified 07/11/22 09:19 [From CombiPatch] sulfamethoxazole Allergy Unknown Verified 07/11/22 09:19 Assessment & Plan Assessment & Plan (1) Vascular dementia with delusions: Status: Acute Code(s): F01.52 - Vascular dementia, unspecified severity, with psychotic disturbance Plan Mrs. Cool is a 77 year old woman brought via EMS to [facility] ED due to delusions of having an affair, increase agitation and memory/cog declined. Changes have been going on for a year but recently increasingly more intense in terms of delusions and agitation. Medical work up in ED include CBC unremarkable. CMP also unremarkable. UA suggestive of UTI pending culture. Do NOT suspect pt is delirious as attention is fairly intact and given progressive behavioral and cognitive changes may be better explained by dementing process. Her pattern of impairment is consistent with vascular dementia- except for language impairment, but her orientation is intact (also another finding not consistent with delirium process). She may have mixed etiology.pt scored 16/30 with most impairments on executive function, visuospatial (0/5), naming (1/3), language fluency and recall. Orientation is intact. 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 PLAN 07/08 continue current medications. will titrate risperidone. 07/09 remeron 15mg po qhs, increase risperidone 1mg po TID. 07/10 increase risperidone to 2 mg po BID 07/11 continue current medications. Reason for contiued inpatient stay Substantial Risk for: inability to function Time Spent With Patient Time: Total time managing care of this patient today ____ minutes.
[2022-07-11 11:07] VITALS: BP 149/80
[2022-07-11 11:08] VITALS: BP 144/69
[2022-07-11 11:41] LABS: Glucose, Whole Blood 259 mg/dL (60-115)
[2022-07-11] MEDS: Insulin Lispro 100 UNIT/ML 3 ML VIAL SUBCUT ×2 (11:53→20:39)
--- NOTE | 2022-07-11 13:12 | PC.NURSE ---
Pt refused AM Propranolol she stated she would take her med in the [place]. Rekha Kraft [employer] notified, med changed to PM
[2022-07-11 16:22] LABS: Glucose, Whole Blood 145 mg/dL (60-115)
[2022-07-11 18:00] VITALS: BP 131/75; PULSE 109; RESP 18; TEMP 36.1; O2SAT 96
[2022-07-11 20:37] LABS: Glucose, Whole Blood 186 mg/dL (60-115)
[2022-07-11] MEDS: Pravastatin Sodium 20 MG TABLET PO (20:37)
[2022-07-11] MEDS: Propranolol HCL LA 80 MG CAP.SA.24H 160 MG PO (20:38)
[2022-07-11] MEDS: risperiDONE 2 MG TABLET PO (20:38)
[2022-07-11] MEDS: Mirtazapine 30 MG TABLET PO (20:38)
[2022-07-11] MEDS: QUEtiapine Fumarate 50 MG TABLET PO (22:44)
[2022-07-12] MEDS: Levothyroxine Sodium 75 MCG TABLET PO (05:55)
[2022-07-12 07:30] VITALS: BP 115/53; PULSE 87; RESP 18; TEMP 36.2; O2SAT 18
[2022-07-12 07:50] LABS: Glucose, Whole Blood 204 mg/dL (60-115)
[2022-07-12] MEDS: Insulin Lispro 100 UNIT/ML 3 ML VIAL SUBCUT ×3 (08:19→20:36)
[2022-07-12] MEDS: Insulin Glargine,Hum.rec.anlog 100 UNIT/ML 10 ML VIAL 17 UNIT SUBCUT (08:20)
[2022-07-12] MEDS: Rivastigmine Tartrate 1.5 MG CAPSULE PO ×2 (08:21→20:37)
[2022-07-12] MEDS: risperiDONE 2 MG TABLET PO ×2 (08:21→20:37)
[2022-07-12] MEDS: metFORMIN HCl ER 500 MG TAB.ER.24H 1000 MG PO ×2 (08:21→16:27)
[2022-07-12] MEDS: LORazepam 0.5 MG TABLET PO ×2 (08:21→20:37)
[2022-07-12] MEDS: Amoxicillin/Potassium Clav 500 MG TABLET PO ×2 (08:21→20:37)
[2022-07-12] MEDS: Tolterodine Tartrate LA 4 MG CAP.ER.24H PO (08:21)
--- NOTE | 2022-07-12 10:30 | P.PNPSI_ITS ---
Subjective Subjective Date of Service: 07/12/22 Reason For Visit: delusions Subjective Notes: Conditional Voluntary Interim History: Pt sleeping on and off during the day. She continues to report having an affair and wanting to go home soon. Pt reminded of scheduled dc date- next Friday at 11am. Per nursing, some difficulty sleeping through the night. No behavioral concerns. Medication Compliance: Yes Review of Systems Review of Systems Constitutional : No Weight loss, No Fever, No Chills, No Night Sweats, No Fatigue, No Malaise ENT/Mouth : No Hearing loss, No Ear Pain, No Nasal Congestion, No Sinus Pain, No Hoarseness, No sore throat, No Rhinorrhea, No Swallowing Difficulty Eyes: No Eye Pain, No Swelling, No Redness, No Foreign Body, No Discharge, No Vision Changes Cardiovascular : No Chest Pain, No SOB, No Dyspnea on Exertion, No Orthopnea, No Edema, No Palpitations Respiratory : No Cough, No Sputum, No Wheezing, No Smoke Exposure, No Dyspnea Gastrointestinal : No Nausea, No Vomiting, No Diarrhea, No Constipation, No abdominal Pain, No Hematochezia, No Melena Genitourinary : no irregular bleeding, No Dysuria, No Urinary Frequency, No He maturia, No Urinary Incontinence, No Urgency, No Flank Pain, No Urinary Flow Changes, No Hesitancy Musculoskeletal : No joint pain, No Myalgias, No Joint Swelling Skin : No Skin Lesions, No rash Neuro : No Weakness, No Numbness, No Paresthesias, No Loss of Consciousness, No Dizziness, No Headache Psych : Patient denies suicidal or homicidal ideation Heme/Lymph: No Bruising, No Bleeding,No Lymphadenopathy Endocrine : No Polyuria, No Polydipsia, No Temperature Intolerance Mental Status Exam Mental Status Exam Narrative: Appearance: casually groomed, good hygiene, tearful but not agitated. Behavior: cooperative Psychomotor: no agitation or retardation noted Speech: clear, some difficulty finding words is evident, spontaneous TP: repetitive- goal directed wanting to go home. TC: delusions related to having affair, wanting to go home SI: none HI: none VH/AH: none Insight/judgment: impaired x 2. Memory/cog: alert, oriented month, place, date, year, not so much situation- thinks family conspiring against her because father has affair and brought her to hospital to keep her away from them. MOCA on 07/02/2022 scored 16/30 with most impairments on executive function, visuospatial (0/5), naming (1/3), language fluency (0/1) and recall (2/5). Orientation is intact. 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 Diagnostics Vital Signs (24Hr): Vital Signs - 24 hr 07/12/22 18:00 Temperature 98 F Pulse Rate 99 Respiratory Rate 18 Blood Pressure 109/54 L Pulse Oximetry 96 Oxygen Delivery Method Room Air BMI result Body Mass Index 38.7 Labs 07/01/22 14:07 07/09/22 08:09 Labs: Laboratory Results - last 48 hr 07/11/22 07/11/22 07/11/22 11:36 16:18 20:32 POC Glucose 259 H 145 H 186 H 07/12/22 07/12/22 07/12/22 07:46 11:45 16:21 POC Glucose 204 H 147 H 207 H 07/12/22 07/13/22 20:30 08:38 POC Glucose 154 H 164 H Imaging Radiology Impressions: ITS Impressions Brain MRI 07/02/22 21:00 IMPRESSION: 1. No acute intracranial abnormalities. 2. Moderate underlying microangiopathy and generalized cerebral volume loss. Chronic lacunar infarcts of the cerebellum. Medications Medications Current Medications Acetaminophen (Acetaminophen 325 Mg Tablet) 650 mg PO Q6H PRN PRN Reason: Headache/Pain Mild Scale (1-3) Last Admin: 07/10/22 22:11 Dose: 650 mg Al Hydroxide/Mg Hydroxide (Magnesium Hydrox/Alum Hydrox 30 Ml Oral.Susp) 30 ml PO Q6H PRN PRN Reason: Heartburn/Nausea Albuterol Sulfate (Albuterol Sulfate 90 Mcg 8 Gm Inhaler) 2 puff INHALE RQ6H [facility] Last Admin: 07/13/22 06:21 Dose: 2 puff Amoxicillin/Clavulanate Potassium (Amoxicillin/Potassium Clav 500 Mg Tablet) 500 mg PO BID [facility] Last Admin: 07/13/22 08:34 Dose: 500 mg Insulin Glargine (Insulin Glargine,Hum.Rec.Anlog 100 Unit/Ml 10 Ml Vial) 17 unit SUBCUT DAILY [facility] Last Admin: 07/13/22 08:35 Dose: 17 unit Insulin Human Lispro (Insulin Lispro 100 Unit/Ml 3 Ml Vial) 0 unit SUBCUT QIDACHS [facility]; Protocol Last Admin: 07/13/22 08:49 Dose: 2 unit Levothyroxine Sodium (Levothyroxine Sodium 75 Mcg Tablet) 75 mcg PO DAILY@0600 [facility] Last Admin: 07/13/22 06:21 Dose: 75 mcg Loperamide HCl (Loperamide Hcl 2 Mg Capsule) 2 mg PO Q4H PRN PRN Reason: loose stools Last Admin: 07/12/22 20:37 Dose: 2 mg Lorazepam (Lorazepam 0.5 Mg Tablet) 0.5 mg PO BID [facility] Last Admin: 07/13/22 08:34 Dose: 0.5 mg Magnesium Hydroxide (Milk Of Magnesia 30 Ml Oral.Susp) 30 ml PO DAILY PRN PRN Reason: Constipation Metformin HCl (Metformin Hcl Er 500 Mg Tab.Er.24h) 1,000 mg PO BIDWM [facility] Last Admin: 07/13/22 08:34 Dose: 1,000 mg Mirtazapine (Mirtazapine 30 Mg Tablet) 30 mg PO BEDTIME [facility] Last Admin: 07/12/22 20:37 Dose: 30 mg Pravastatin Sodium (Pravastatin Sodium 20 Mg Tablet) 20 mg PO BEDTIME [facility] Last Admin: 07/12/22 20:37 Dose: 20 mg Propranolol HCl (Propranolol Hcl La 80 Mg Cap.Sa.24h) 160 mg PO BEDTIME [facility]; Protocol Last Admin: 07/12/22 20:36 Dose: 160 mg Quetiapine Fumarate (Quetiapine Fumarate 50 Mg Tablet) 50 mg PO Q6H PRN PRN Reason: agitation Last Admin: 07/11/22 22:44 Dose: 50 mg Risperidone (Risperidone 2 Mg Tablet) 2 mg PO BID [facility] Last Admin: 07/13/22 08:34 Dose: 2 mg Rivastigmine Tartrate (Rivastigmine Tartrate 1.5 Mg Capsule) 1.5 mg PO BID [facility] Last Admin: 07/13/22 08:34 Dose: 1.5 mg Tolterodine Tartrate (Tolterodine Tartrate La 4 Mg Cap.Er.24h) 4 mg PO DAILY [facility] Last Admin: 07/13/22 08:34 Dose: 4 mg Allergies Allergies Allergy/AdvReac Type Severity Reaction Status Date / Time estradiol [From CombiPatch] Allergy Unknown Verified 07/11/22 09:19 norethindrone Allergy Unknown Verified 07/11/22 09:19 [From CombiPatch] sulfamethoxazole Allergy Unknown Verified 07/11/22 09:19 Assessment & Plan Assessment & Plan (1) Vascular dementia with delusions: Status: Acute Code(s): F01.52 - Vascular dementia, unspecified severity, with psychotic disturbance Plan Mrs. Cool is a 77 year old woman brought via EMS to [facility] ED due to delusions of having an affair, increase agitation and memory/cog declined. Changes have been going on for a year but recently increasingly more intense in terms of delusions and agitation. Medical work up in ED include CBC unremarkable. CMP also unremarkable. UA suggestive of UTI pending culture. Do NOT suspect pt is delirious as attention is fairly intact and given progressive behavioral and cognitive changes may be better explained by dementing process. Her pattern of impairment is consistent with vascular dementia- except for language impairment, but her orientation is intact (also another finding not consistent with delirium process). She may have mixed etiology.pt scored 16/30 with most impairments on executive function, visuospatial (0/5), naming (1/3), language fluency and recall. Orientation is intact. 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 PLAN 07/08 continue current medications. will titrate risperidone. 07/09 remeron 15mg po qhs, increase risperidone 1mg po TID. 07/10 increase risperidone to 2 mg po BID 2 continue current medications. 2/3 continue current tx. Reason for contiued inpatient stay Substantial Risk for: inability to function Time Spent With Patient Time: Total time managing care of this patient today ____ minutes.
[2022-07-12 11:48] LABS: Glucose, Whole Blood 147 mg/dL (60-115)
[2022-07-12 16:24] LABS: Glucose, Whole Blood 207 mg/dL (60-115)
[2022-07-12 18:00] VITALS: BP 109/54; PULSE 99; RESP 18; TEMP 36.6; O2SAT 96
[2022-07-12] MEDS: Propranolol HCL LA 80 MG CAP.SA.24H 160 MG PO (20:36)
[2022-07-12] MEDS: Loperamide HCl 2 MG CAPSULE PO (20:37)
[2022-07-12] MEDS: Mirtazapine 30 MG TABLET PO (20:37)
[2022-07-12] MEDS: Pravastatin Sodium 20 MG TABLET PO (20:37)
[2022-07-12 21:01] LABS: Glucose, Whole Blood 154 mg/dL (60-115)
[2022-07-13] MEDS: Albuterol Sulfate 90 MCG 8 GM INHALER 2 PUFF INHALE (06:21)
[2022-07-13] MEDS: Levothyroxine Sodium 75 MCG TABLET PO (06:21)
[2022-07-13] MEDS: Tolterodine Tartrate LA 4 MG CAP.ER.24H PO (08:34)
[2022-07-13] MEDS: Rivastigmine Tartrate 1.5 MG CAPSULE PO ×2 (08:34→20:45)
[2022-07-13] MEDS: risperiDONE 2 MG TABLET PO ×2 (08:34→20:44)
[2022-07-13] MEDS: Amoxicillin/Potassium Clav 500 MG TABLET PO ×2 (08:34→20:43)
[2022-07-13] MEDS: LORazepam 0.5 MG TABLET PO (08:34)
[2022-07-13] MEDS: metFORMIN HCl ER 500 MG TAB.ER.24H 1000 MG PO ×2 (08:34→16:46)
[2022-07-13] MEDS: Insulin Glargine,Hum.rec.anlog 100 UNIT/ML 10 ML VIAL 17 UNIT SUBCUT (08:35)
[2022-07-13 08:43] LABS: Glucose, Whole Blood 164 mg/dL (60-115)
[2022-07-13] MEDS: Insulin Lispro 100 UNIT/ML 3 ML VIAL SUBCUT ×4 (08:49→20:53)
[2022-07-13 09:25] VITALS: BP 85/49; PULSE 81; RESP 16; TEMP 36.2; O2SAT 94
[2022-07-13 10:50] LABS: Glucose, Whole Blood 198 mg/dL (60-115)
--- NOTE | 2022-07-13 12:04 | P.PNPSI_ITS ---
Subjective Subjective Date of Service: 07/13/22 Reason For Visit: delusions Interim History: irritable, claiming she's been here more than a month when it is actually around 10 days. asks for MD to expedite paperwork to get her discharged before friday, was redirected to speak with primary team on friday regarding discharge plans. no other requests or complaints. per staff, slept 8 hours last night. delusional that another woman at [facility] was having an affair with her . Mental Status Exam Mental Status Exam Narrative: Appearance: casually groomed, good hygiene, tearful but not agitated. Behavior: cooperative Psychomotor: no agitation or retardation noted Speech: clear, some difficulty finding words is evident, spontaneous TP: repetitive- goal directed wanting to go home. TC: delusions related to having affair, wanting to go home SI: none HI: none VH/AH: none Insight/judgment: impaired x 2. Memory/cog: alert, oriented month, place, date, year, not so much situation- thinks family conspiring against her because father has affair and brought her to hospital to keep her away from them. MOCA on 07/02/2022 scored 16/30 with most impairments on executive function, visuospatial (0/5), naming (1/3), language fluency (0/1) and recall (2/5). Orientation is intact. 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 Diagnostics Vital Signs (24Hr): Vital Signs - 24 hr 07/12/22 18:00 07/13/22 09:25 Temperature 98 F 97.1 F Pulse Rate 99 81 Respiratory Rate 18 16 Blood Pressure 109/54 L 85/49 L Pulse Oximetry 96 94 Oxygen Delivery Method Room Air Room Air BMI result Body Mass Index 38.7 Labs 07/01/22 14:07 07/09/22 08:09 Labs: Laboratory Results - last 48 hr 07/11/22 07/11/22 07/12/22 16:18 20:32 07:46 POC Glucose 145 H 186 H 204 H 07/12/22 07/12/22 07/12/22 11:45 16:21 20:30 POC Glucose 147 H 207 H 154 H 07/13/22 07/13/22 08:38 10:45 POC Glucose 164 H 198 H Imaging Radiology Impressions: ITS Impressions Brain MRI 07/02/22 21:00 IMPRESSION: 1. No acute intracranial abnormalities. 2. Moderate underlying microangiopathy and generalized cerebral volume loss. Chronic lacunar infarcts of the cerebellum. Medications Medications Current Medications Acetaminophen (Acetaminophen 325 Mg Tablet) 650 mg PO Q6H PRN PRN Reason: Headache/Pain Mild Scale (1-3) Last Admin: 07/10/22 22:11 Dose: 650 mg Al Hydroxide/Mg Hydroxide (Magnesium Hydrox/Alum Hydrox 30 Ml Oral.Susp) 30 ml PO Q6H PRN PRN Reason: Heartburn/Nausea Albuterol Sulfate (Albuterol Sulfate 90 Mcg 8 Gm Inhaler) 2 puff INHALE RQ6H [facility] Last Admin: 07/13/22 06:21 Dose: 2 puff Amoxicillin/Clavulanate Potassium (Amoxicillin/Potassium Clav 500 Mg Tablet) 500 mg PO BID [facility] Last Admin: 07/13/22 08:34 Dose: 500 mg Insulin Glargine (Insulin Glargine,Hum.Rec.Anlog 100 Unit/Ml 10 Ml Vial) 17 unit SUBCUT DAILY [facility] Last Admin: 07/13/22 08:35 Dose: 17 unit Insulin Human Lispro (Insulin Lispro 100 Unit/Ml 3 Ml Vial) 0 unit SUBCUT QIDACHS [facility]; Protocol Last Admin: 07/13/22 08:49 Dose: 2 unit Levothyroxine Sodium (Levothyroxine Sodium 75 Mcg Tablet) 75 mcg PO DAILY@0600 [facility] Last Admin: 07/13/22 06:21 Dose: 75 mcg Loperamide HCl (Loperamide Hcl 2 Mg Capsule) 2 mg PO Q4H PRN PRN Reason: loose stools Last Admin: 07/12/22 20:37 Dose: 2 mg Magnesium Hydroxide (Milk Of Magnesia 30 Ml Oral.Susp) 30 ml PO DAILY PRN PRN Reason: Constipation Metformin HCl (Metformin Hcl Er 500 Mg Tab.Er.24h) 1,000 mg PO BIDWM [facility] Last Admin: 07/13/22 08:34 Dose: 1,000 mg Mirtazapine (Mirtazapine 30 Mg Tablet) 30 mg PO BEDTIME [facility] Last Admin: 07/12/22 20:37 Dose: 30 mg Pravastatin Sodium (Pravastatin Sodium 20 Mg Tablet) 20 mg PO BEDTIME [facility] Last Admin: 02/03/23 20:37 Dose: 20 mg Propranolol HCl (Propranolol Hcl La 80 Mg Cap.Sa.24h) 160 mg PO BEDTIME [facility]; Protocol Last Admin: 07/12/22 20:36 Dose: 160 mg Quetiapine Fumarate (Quetiapine Fumarate 50 Mg Tablet) 50 mg PO Q6H PRN PRN Reason: agitation Last Admin: 07/11/22 22:44 Dose: 50 mg Risperidone (Risperidone 2 Mg Tablet) 2 mg PO BID [facility] Last Admin: 07/13/22 08:34 Dose: 2 mg Rivastigmine Tartrate (Rivastigmine Tartrate 1.5 Mg Capsule) 1.5 mg PO BID [facility] Last Admin: 07/13/22 08:34 Dose: 1.5 mg Tolterodine Tartrate (Tolterodine Tartrate La 4 Mg Cap.Er.24h) 4 mg PO DAILY [facility] Last Admin: 07/13/22 08:34 Dose: 4 mg Allergies Allergies Allergy/AdvReac Type Severity Reaction Status Date / Time estradiol [From CombiPatch] Allergy Unknown Verified 07/11/22 09:19 norethindrone Allergy Unknown Verified 07/11/22 09:19 [From CombiPatch] sulfamethoxazole Allergy Unknown Verified 07/11/22 09:19 Assessment & Plan Assessment & Plan (1) Vascular dementia with delusions: Status: Acute Code(s): F01.52 - Vascular dementia, unspecified severity, with psychotic disturbance Plan Mrs. Cool is a 77 year old woman brought via EMS [place] [facility] [place] due to delusions of having an affair, increase agitation and memory/cog declined. Changes have been going on for a year but recently increasingly more intense in terms of delusions and agitation. Medical work up in ED include CBC unremarkable. CMP also unremarkable. UA suggestive of UTI pending culture. Do NOT suspect pt is delirious as attention is fairly intact and given progressive behavioral and cognitive changes may be better explained by dementing process. Her pattern of impairment is consistent with vascular dementia- except for language impairment, but her orientation is intact (also another finding not consistent with delirium process). She may have mixed etiology.pt scored 16/30 with most impairments on executive function, visuospatial (0/5), naming (1/3), language fluency and recall. Orientation is intact. 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 PLAN 07/08 continue current medications. will titrate risperidone. 07/09 remeron 15mg po qhs, increase risperidone 1mg po TID. 07/10 increase risperidone to 2 mg po BID 07/11 continue current medications. 07/12 continue current tx. 07/13: no change in mgmt or presentation. Reason for contiued inpatient stay Substantial Risk for: harm to others, inability to function and rapid decompensation Time Spent With Patient Time: Total time managing care of this patient today ____ minutes.
[2022-07-13 12:08] LABS: Glucose, Whole Blood 159 mg/dL (60-115)
[2022-07-13 16:26] LABS: Glucose, Whole Blood 271 mg/dL (60-115)
[2022-07-13] MEDS: Loperamide HCl 2 MG CAPSULE PO (16:49)
[2022-07-13 18:00] VITALS: BP 142/66; PULSE 84; RESP 18; TEMP 36; O2SAT 95
[2022-07-13] MEDS: Propranolol HCL LA 80 MG CAP.SA.24H 160 MG PO (20:43)
[2022-07-13] MEDS: Pravastatin Sodium 20 MG TABLET PO (20:44)
[2022-07-13] MEDS: Mirtazapine 30 MG TABLET PO (20:44)
[2022-07-13 20:55] LABS: Glucose, Whole Blood 159 mg/dL (60-115)
[2022-07-14] MEDS: Levothyroxine Sodium 75 MCG TABLET PO (05:47)
[2022-07-14 06:00] VITALS: BP 114/58; PULSE 70; RESP 16; TEMP 36.3; O2SAT 96
[2022-07-14 07:53] LABS: Glucose, Whole Blood 209 mg/dL (60-115)
[2022-07-14] MEDS: Insulin Glargine,Hum.rec.anlog 100 UNIT/ML 10 ML VIAL 17 UNIT SUBCUT (08:03)
[2022-07-14] MEDS: Insulin Lispro 100 UNIT/ML 3 ML VIAL SUBCUT ×4 (08:03→21:06)
[2022-07-14] MEDS: risperiDONE 2 MG TABLET PO ×2 (11:02→21:08)
[2022-07-14] MEDS: Tolterodine Tartrate LA 4 MG CAP.ER.24H PO (11:03)
[2022-07-14] MEDS: Rivastigmine Tartrate 1.5 MG CAPSULE PO ×2 (11:03→21:07)
[2022-07-14] MEDS: Amoxicillin/Potassium Clav 500 MG TABLET PO (11:03)
[2022-07-14] MEDS: LORazepam 0.5 MG TABLET PO ×2 (11:09→21:07)
[2022-07-14] MEDS: metFORMIN HCl ER 500 MG TAB.ER.24H 1000 MG PO ×2 (11:16→16:33)
--- NOTE | 2022-07-14 11:16 | P.PNPSI_ITS ---
Subjective Subjective Date of Service: 07/14/22 Reason For Visit: delusions Interim History: somewhat irritable and labile. upset at being stuck in the hospital. requesting she be expedited for discharge, misses home, starts crying. no questions or requests otherwise. per staff, D/C friday. flat, irritable. Mental Status Exam Mental Status Exam Narrative: Appearance: casually groomed, good hygiene, tearful but not agitated. Behavior: cooperative Psychomotor: no agitation or retardation noted Speech: clear, some difficulty finding words is evident, spontaneous TP: repetitive- goal directed wanting to go home. TC: delusions related to having affair, wanting to go home SI: none HI: none VH/AH: none Insight/judgment: impaired x 2. Memory/cog: alert, oriented month, place, date, year, not so much situation- thinks family conspiring against her because father has affair and brought her to hospital to keep her away from them. MOCA on 07/02/2022 scored 16/30 with most impairments on executive function, visuospatial (0/5), naming (1/3), language fluency (0/1) and recall (2/5). Orientation is intact. 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 Diagnostics Vital Signs (24Hr): Vital Signs - 24 hr 07/13/22 18:00 Temperature 96.8 F Pulse Rate 84 Respiratory Rate 18 Blood Pressure 142/66 H Pulse Oximetry 95 Oxygen Delivery Method Room Air BMI result Body Mass Index 38.7 Labs 07/01/22 14:07 07/09/22 08:09 Labs: Laboratory Results - last 48 hr 07/12/22 07/12/22 07/12/22 11:45 16:21 20:30 POC Glucose 147 H 207 H 154 H 07/13/22 07/13/22 07/13/22 08:38 10:45 12:03 POC Glucose 164 H 198 H 159 H 07/13/22 07/13/22 07/14/22 16:20 20:41 07:49 POC Glucose 271 H 159 H 209 H Imaging Radiology Impressions: ITS Impressions Brain MRI 07/02/22 21:00 IMPRESSION: 1. No acute intracranial abnormalities. 2. Moderate underlying microangiopathy and generalized cerebral volume loss. Chronic lacunar infarcts of the cerebellum. Medications Medications Current Medications Acetaminophen (Acetaminophen 325 Mg Tablet) 650 mg PO Q6H PRN PRN Reason: Headache/Pain Mild Scale (1-3) Last Admin: 07/10/22 22:11 Dose: 650 mg Al Hydroxide/Mg Hydroxide (Magnesium Hydrox/Alum Hydrox 30 Ml Oral.Susp) 30 ml PO Q6H PRN PRN Reason: Heartburn/Nausea Albuterol Sulfate (Albuterol Sulfate 90 Mcg 8 Gm Inhaler) 2 puff INHALE RQ6H [facility] Last Admin: 07/14/22 05:48 Dose: Not Given Insulin Glargine (Insulin Glargine,Hum.Rec.Anlog 100 Unit/Ml 10 Ml Vial) 17 unit SUBCUT DAILY [facility] Last Admin: 07/14/22 08:03 Dose: 17 unit Insulin Human Lispro (Insulin Lispro 100 Unit/Ml 3 Ml Vial) 0 unit SUBCUT QIDACHS [facility]; Protocol Last Admin: 07/14/22 08:03 Dose: 4 unit Levothyroxine Sodium (Levothyroxine Sodium 75 Mcg Tablet) 75 mcg PO DAILY@0600 [facility] Last Admin: 07/14/22 05:47 Dose: 75 mcg Loperamide HCl (Loperamide Hcl 2 Mg Capsule) 2 mg PO Q4H PRN PRN Reason: loose stools Last Admin: 07/13/22 16:49 Dose: 2 mg Lorazepam (Lorazepam 0.5 Mg Tablet) 0.5 mg PO BID ELSY Magnesium Hydroxide (Milk Of Magnesia 30 Ml Oral.Susp) 30 ml PO DAILY PRN PRN Reason: Constipation Metformin HCl (Metformin Hcl Er 500 Mg Tab.Er.24h) 1,000 mg PO BIDWM [facility] Last Admin: 07/13/22 16:46 Dose: 1,000 mg Mirtazapine (Mirtazapine 30 Mg Tablet) 30 mg PO BEDTIME [facility] Last Admin: 07/13/22 20:44 Dose: 30 mg Pravastatin Sodium (Pravastatin Sodium 20 Mg Tablet) 20 mg PO BEDTIME [facility] Last Admin: 07/13/22 20:44 Dose: 20 mg Propranolol HCl (Propranolol Hcl La 80 Mg Cap.Sa.24h) 160 mg PO BEDTIME [facility]; Protocol Last Admin: 07/13/22 20:43 Dose: 160 mg Quetiapine Fumarate (Quetiapine Fumarate 50 Mg Tablet) 50 mg PO Q6H PRN PRN Reason: agitation Last Admin: 07/11/22 22:44 Dose: 50 mg Risperidone (Risperidone 2 Mg Tablet) 2 mg PO BID [facility] Last Admin: 07/13/22 20:44 Dose: 2 mg Rivastigmine Tartrate (Rivastigmine Tartrate 1.5 Mg Capsule) 1.5 mg PO BID [facility] Last Admin: 07/13/22 20:45 Dose: 1.5 mg Tolterodine Tartrate (Tolterodine Tartrate La 4 Mg Cap.Er.24h) 4 mg PO DAILY [facility] Last Admin: 07/13/22 08:34 Dose: 4 mg Allergies Allergies Allergy/AdvReac Type Severity Reaction Status Date / Time estradiol [From CombiPatch] Allergy Unknown Verified 07/11/22 09:19 norethindrone Allergy Unknown Verified 07/11/22 09:19 [From CombiPatch] sulfamethoxazole Allergy Unknown Verified 07/11/22 09:19 Assessment & Plan Assessment & Plan (1) Vascular dementia with delusions: Status: Acute Code(s): F01.52 - Vascular dementia, unspecified severity, with psychotic disturbance Plan Mrs. Cool is a 77 year old woman brought via EMS [place] [facility] due to delusions of having an affair, increase agitation and memory/cog declined. Changes have been going on for a year but recently increasingly more intense in terms of delusions and agitation. Medical work up in ED include CBC unremarkable. CMP also unremarkable. UA suggestive of UTI pending culture. Do NOT suspect pt is delirious as attention is fairly intact and given progressive behavioral and cognitive changes may be better explained by dementing process. Her pattern of impairment is consistent with vascular dementia- except for language impairment, but her orientation is intact (also another finding not consistent with delirium process). She may have mixed etiology.pt scored 16/30 with most impairments on executive function, visuospatial (0/5), naming (1/3), language fluency and reca ll. Orientation is intact. 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 PLAN 07/08 continue current medications. will titrate risperidone. 07/09 remeron 15mg po qhs, increase risperidone 1mg po TID. 07/10 increase risperidone to 2 mg po BID 07/11 continue current medications. 3 continue current tx. 07/13: no change in mgmt or presentation. 07/14: no change in mgmt or presentation. Reason for contiued inpatient stay Substantial Risk for: inability to function and rapid decompensation Time Spent With Patient Time: Total time managing care of this patient today ____ minutes.
[2022-07-14 11:45] LABS: Glucose, Whole Blood 180 mg/dL (60-115)
--- NOTE | 2022-07-14 16:26 | PC.NURSE ---
rbs 221. TEST DONE DOWNTIME OVERRIDE DUE TO GLUCOMETER NOT SCANNING PROPERLY
[2022-07-14 18:24] VITALS: BP 109/57; PULSE 79; RESP 16; TEMP 36.1; O2SAT 92
[2022-07-14] MEDS: QUEtiapine Fumarate 50 MG TABLET PO (21:07)
[2022-07-14] MEDS: Propranolol HCL LA 80 MG CAP.SA.24H 160 MG PO (21:07)
[2022-07-14] MEDS: Mirtazapine 30 MG TABLET PO (21:08)
[2022-07-14] MEDS: Pravastatin Sodium 20 MG TABLET PO (21:08)
[2022-07-15 06:00] VITALS: BP 94/55; PULSE 76; RESP 17; TEMP 36.1; O2SAT 100
[2022-07-15] MEDS: Levothyroxine Sodium 75 MCG TABLET PO (06:27)
[2022-07-15] MEDS: Insulin Glargine,Hum.rec.anlog 100 UNIT/ML 10 ML VIAL 17 UNIT SUBCUT (10:36)
[2022-07-15] MEDS: risperiDONE 2 MG TABLET PO ×2 (10:39→20:19)
[2022-07-15] MEDS: metFORMIN HCl ER 500 MG TAB.ER.24H 1000 MG PO ×2 (10:39→16:07)
[2022-07-15] MEDS: Tolterodine Tartrate LA 4 MG CAP.ER.24H PO (10:39)
[2022-07-15] MEDS: LORazepam 0.5 MG TABLET PO ×2 (10:39→20:19)
[2022-07-15] MEDS: Rivastigmine Tartrate 1.5 MG CAPSULE PO ×2 (10:39→20:26)
[2022-07-15 11:24] LABS: Glucose, Whole Blood 338 mg/dL (60-115)
[2022-07-15] MEDS: Insulin Lispro 100 UNIT/ML 3 ML VIAL SUBCUT ×3 (11:42→20:22)
--- NOTE | 2022-07-15 14:30 | P.PNPSI_ITS ---
Subjective Subjective Date of Service: 07/15/22 Reason For Visit: delusions Interim History: Pt asks if she can be discharged today. Reminded that d/c is tomorrow. Pt reports sleeping fairly well. No dizziness. No SI/HI. No behavioral concerns. She has been more visible on the unit, helping other pts. Upset with staff for being in the hospital. Medication Compliance: Yes Side effects from medications: No Review of Systems Review of Systems Constitutional : No Weight loss, No Fever, No Chills, No Night Sweats, No Fatigue, No Malaise ENT/Mouth : No Hearing loss, No Ear Pain, No Nasal Congestion, No Sinus Pain, No Hoarseness, No sore throat, No Rhinorrhea, No Swallowing Difficulty Eyes: No Eye Pain, No Swelling, No Redness, No Foreign Body, No Discharge, No Vision Changes Cardiovascular : No Chest Pain, No SOB, No Dyspnea on Exertion, No Orthopnea, No Edema, No Palpitations Respiratory : No Cough, No Sputum, No Wheezing, No Smoke Exposure, No Dyspnea Gastrointestinal : No Nausea, No Vomiting, No Diarrhea, No Constipation, No abdominal Pain, No Hematochezia, No Melena Genitourinary : no irregular bleeding, No Dysuria, No Urinary Frequency, No Hematuria, No Urinary Incontinence, No Urgency, No Flank Pain, No Urinary Flow Changes, No Hesitancy Musculoskeletal : No joint pain, No Myalgias, No Joint Swelling Skin : No Skin Lesions, No rash Neuro : No Weakness, No Numbness, No Paresthesias, No Loss of Consciousness, No Dizziness, No Headache Psych : Patient denies suicidal or homicidal ideation Heme/Lymph: No Bruising, No Bleeding,No Lymphadenopathy Endocrine : No Polyuria, No Polydipsia, No Temperature Intolerance Mental Status Exam Mental Status Exam Narrative: Appearance: casually groomed, good hygiene, tearful but not agitated. Behavior: cooperative Psychomotor: no agitation or retardation noted Speech: clear, some difficulty finding words is evident, spontaneous TP: repetitive- goal directed wanting to go home. TC: delusions related to having affair, wanting to go home SI: none HI: none VH/AH: none Insight/judgment: impaired x 2. Memory/cog: alert, oriented month, place, date, year, not so much situation- thinks family conspiring against her because father has affair and brought her to hospital to keep her away from them. MOCA on 07/02/2022 scored 16/30 with most impairments on executive function, visuospatial (0/5), naming (1/3), language fluency (0/1) and recall (2/5). Orientation is intact. MRI showed moderate atro phy, lacunar infarcts in cerebellum and microangiopathy. Diagnostics Vital Signs (24Hr): Vital Signs - 24 hr 07/15/22 06:00 Temperature 97.0 F Pulse Rate 76 Respiratory Rate 17 Blood Pressure 94/55 L Pulse Oximetry 100 Oxygen Delivery Method Room Air BMI result Body Mass Index 38.7 Labs 07/01/22 14:07 07/09/22 08:09 Labs: Laboratory Results - last 48 hr 07/13/22 07/14/22 07/14/22 20:41 07:49 11:40 POC Glucose 159 H 209 H 180 H 07/15/22 07/15/22 07/15/22 11:20 16:14 20:09 POC Glucose 338 H 176 H 184 H Imaging Radiology Impressions: ITS Impressions Brain MRI 07/02/22 21:00 IMPRESSION: 1. No acute intracranial abnormalities. 2. Moderate underlying microangiopathy and generalized cerebral volume loss. Chronic lacunar infarcts of the cerebellum. Medications Medications Current Medications Acetaminophen (Acetaminophen 325 Mg Tablet) 650 mg PO Q6H PRN PRN Reason: Headache/Pain Mild Scale (1-3) Last Admin: 07/10/22 22:11 Dose: 650 mg Al Hydroxide/Mg Hydroxide (Magnesium Hydrox/Alum Hydrox 30 Ml Oral.Susp) 30 ml PO Q6H PRN PRN Reason: Heartburn/Nausea Albuterol Sulfate (Albuterol Sulfate 90 Mcg 8 Gm Inhaler) 2 puff INHALE RQ6H [facility] Last Admin: 07/15/22 20:27 Dose: Not Given Insulin Glargine (Insulin Glargine,Hum.Rec.Anlog 100 Unit/Ml 10 Ml Vial) 17 unit SUBCUT DAILY [facility] Last Admin: 07/15/22 10:36 Dose: 17 unit Insulin Human Lispro (Insulin Lispro 100 Unit/Ml 3 Ml Vial) 0 unit SUBCUT QIDACHS [facility]; Protocol Last Admin: 07/15/22 20:22 Dose: 2 unit Levothyroxine Sodium (Levothyroxine Sodium 75 Mcg Tablet) 75 mcg PO DAILY@0600 [facility] Last Admin: 07/15/22 06:27 Dose: 75 mcg Loperamide HCl (Loperamide Hcl 2 Mg Capsule) 2 mg PO Q4H PRN PRN Reason: loose stools Last Admin: 07/13/22 16:49 Dose: 2 mg Lorazepam (Lorazepam 0.5 Mg Tablet) 0.5 mg PO BID [facility] Last Admin: 07/15/22 20:19 Dose: 0.5 mg Magnesium Hydroxide (Milk Of Magnesia 30 Ml Oral.Susp) 30 ml PO DAILY PRN PRN Reason: Constipation Metformin HCl (Metformin Hcl Er 500 Mg Tab.Er.24h) 1,000 mg PO BIDWM [facility] Last Admin: 07/15/22 16:07 Dose: 1,000 mg Mirtazapine (Mirtazapine 30 Mg Tablet) 30 mg PO BEDTIME [facility] Last Admin: 07/15/22 20:19 Dose: 30 mg Pravastatin Sodium (Pravastatin Sodium 20 Mg Tablet) 20 mg PO BEDTIME [facility] Last Admin: 07/15/22 20:19 Dose: 20 mg Propranolol HCl (Propranolol Hcl La 80 Mg Cap.Sa.24h) 160 mg PO BEDTIME [facility]; Protocol Last Admin: 07/15/22 20:18 Dose: 160 mg Quetiapine Fumarate (Quetiapine Fumarate 50 Mg Tablet) 50 mg PO Q6H PRN PRN Reason: agitation Last Admin: 07/14/22 21:07 Dose: 50 mg Risperidone (Risperidone 2 Mg Tablet) 2 mg PO BID [facility] Last Admin: 07/15/22 20:19 Dose: 2 mg Rivastigmine Tartrate (Rivastigmine Tartrate 1.5 Mg Capsule) 1.5 mg PO BID [facility] Last Admin: 07/15/22 20:26 Dose: 1.5 mg Tolterodine Tartrate (Tolterodine Tartrate La 4 Mg Cap.Er.24h) 4 mg PO DAILY [facility] Last Admin: 07/15/22 10:39 Dose: 4 mg Allergies Allergies Allergy/AdvReac Type Severity Reaction Status Date / Time estradiol [From CombiPatch] Allergy Unknown Verified 07/11/22 09:19 norethindrone Allergy Unknown Verified 07/11/22 09:19 [From CombiPatch] sulfamethoxazole Allergy Unknown Verified 07/11/22 09:19 Assessment & Plan Assessment & Plan (1) Vascular dementia with delusions: Status: Acute Code(s): F01.52 - Vascular dementia, unspecified severity, with psychotic disturbance Plan Mrs. Cool is a 77 year old woman brought via EMS to [facility] due to delusions of having an affair, increase agitation and memory/cog declined. Changes have been going on for a year but recently increasingly more intense in terms of delusions and agitation. Medical work up in ED include CBC unremarkable. CMP also unremarkable. UA suggestive of UTI pending culture. Do NOT suspect pt is delirious as attention is fairly intact and given progressive behavioral and cognitive changes may be better explained by dementing process. Her pattern of impairment is consistent with vascular dementia- except for language impairment, but her orientation is intact (also another finding not consistent with delirium process). She may have mixed etiology.pt scored 16/30 with most impairments on executive function, visuospatial (0/5), naming (1/3), language fluency and recall. Orientation is intact. 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 PLAN 07/08 continue current medications. will titrate risperidone. 07/09 remeron 15mg po qhs, increase risperidone 1mg po TID. 07/10 increase risperidone to 2 mg po BID 07/11 continue current medications. 07/12 continue current tx. 07/13: no change in mgmt or presentation. 07/14: no change in mgmt or presentation. 07/15 continue tx. Reason for contiued inpatient stay Substantial Risk for: inability to function Time Spent With Patient Time: Total time managing care of this patient today ____ minutes.
[2022-07-15 18:00] VITALS: BP 132/91; PULSE 82; RESP 16; TEMP 36.1; O2SAT 98
[2022-07-15 20:13] LABS: Glucose, Whole Blood 184 mg/dL (60-115)
[2022-07-15 20:13] LABS: Glucose, Whole Blood 176 mg/dL (60-115)
[2022-07-15] MEDS: Propranolol HCL LA 80 MG CAP.SA.24H 160 MG PO (20:18)
[2022-07-15] MEDS: Pravastatin Sodium 20 MG TABLET PO (20:19)
[2022-07-15] MEDS: Mirtazapine 30 MG TABLET PO (20:19)
[2022-07-16] MEDS: Levothyroxine Sodium 75 MCG TABLET PO (05:57)
[2022-07-16 07:38] LABS: Glucose, Whole Blood 168 mg/dL (60-115)
[2022-07-16 08:00] VITALS: BP 133/87; PULSE 89; RESP 16; O2SAT 96
[2022-07-16] MEDS: risperiDONE 2 MG TABLET PO (08:02)
[2022-07-16] MEDS: Insulin Glargine,Hum.rec.anlog 100 UNIT/ML 10 ML VIAL 17 UNIT SUBCUT (08:02)
[2022-07-16] MEDS: Insulin Lispro 100 UNIT/ML 3 ML VIAL SUBCUT (08:02)
[2022-07-16] MEDS: Tolterodine Tartrate LA 4 MG CAP.ER.24H PO (08:03)
[2022-07-16] MEDS: Rivastigmine Tartrate 1.5 MG CAPSULE PO (08:03)
[2022-07-16] MEDS: LORazepam 0.5 MG TABLET PO (08:04)
[2022-07-16] MEDS: metFORMIN HCl ER 500 MG TAB.ER.24H 1000 MG PO (08:07)
--- NOTE | 2022-07-16 09:40 | PM.PSYDC ---
DS: Providers Provider Date of Service: 07/16/22 Date of admission: 07/03/22 21:50 Primary care physician: Unknown Physician DS: Diagnosis Discharge Diagnosis (1) Vascular dementia with delusions: Status: Acute DS: Medications Discharge Medications Home Medications: Home Medications Medication Instructions Recorded Confirmed albuterol sulfate 90 mcg/actuation 2 puff inhalation Q6H 07/01/22 07/01/22 aerosol inhaler dulaglutide 0.75 mg/0.5 mL 75 mg subcut FR 07/01/22 07/01/22 subcutaneous pen injector (Trulicity) insulin degludec 100 unit/mL (3 25 unit subcut DAILY 07/01/22 07/01/22 mL) subcutaneous pen (Tresiba FlexTouch U-100 insulin) levothyroxine 75 mcg tablet 1 tab PO DAILY 07/01/22 07/01/22 lorazepam 0.5 mg tablet 1 tab PO BID PRN Anxiety 07/01/22 07/01/22 metformin 500 mg tablet,extended 2 tab PO BID 07/01/22 07/01/22 release 24 hr pravastatin 20 mg tablet 1 tab PO BEDTIME 07/01/22 07/01/22 propranolol 160 mg capsule,24 1 cap PO DAILY 07/01/22 07/01/22 hr,extended release tolterodine 4 mg capsule,extended 1 cap PO DAILY 07/01/22 07/01/22 release 24 hr Mental Status Exam Mental Status Exam Narrative: Appearance: casually groomed, good hygiene, tearful but not agitated. Behavior: cooperative Psychomotor: no agitation or retardation noted Speech: clear, some difficulty finding words is evident, spontaneous TP: repetitive- goal directed wanting to go home. TC: delusions related to having affair, wanting to go home SI: none HI: none VH/AH: none Insight/judgment: impaired x 2. Memory/cog: alert, oriented month, place, date, year, not so much situation- thinks family conspiring against her because father has affair and brought her to hospital to keep her away from them. MOCA on 07/02/2022 scored 16/30 with most impairments on executive function, visuospatial (0/5), naming (1/3), language fluency (0/1) and recall (2/5). Orientation is intact. 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 Data Data Completed and Pending Completed studies during hospitalization [Text1]: 07/09/22 07/10/22 07/10/22 19:59 07:56 16:18 POC Glucose 224 H 200 H 203 H 07/10/22 07/11/22 07/11/22 20:44 08:12 11:36 POC Glucose 137 H 236 H 259 H 07/11/22 07/11/22 07/12/22 16:18 20:32 07:46 POC Glucose 145 H 186 H 204 H 07/12/22 07/12/22 07/12/22 11:45 16:21 20:30 POC Glucose 147 H 207 H 154 H 07/13/22 07/13/22 07/13/22 08:38 10:45 12:03 POC Glucose 164 H 198 H 159 H 07/13/22 07/13/22 07/14/22 16:20 20:41 07:49 POC Glucose 271 H 159 H 209 H 07/14/22 07/15/22 07/15/22 11:40 11:20 16:14 POC Glucose 180 H 338 H 176 H 07/15/22 07/16/22 20:09 07:34 POC Glucose 184 H 168 H 07/01/22 Unknown Urine clean catch - Urine cheney top Urine Culture - Final Strep agalactiae (Grp B) Imaging Diagnostic Imaging Impressions Brain MRI 07/02/22 21:00 IMPRESSION: 1. No acute intracranial abnormalities. 2. Moderate underlying microangiopathy and generalized cerebral volume loss. Chronic lacunar infarcts of the cerebellum. DS: Summary Hospital Course Hospital Course: HPI: Mrs. Cool is a 77 year-old woman who has been presenting with delusions that her is having an affair with woman at [employer]. This has been going on for almost a year but has significantly intensified in the past several week. Family also reports pt has been presenting as more forgetful, forgetting recipes she done for years. She has not been sleeping well. At times waking up at night, telling that she thinks someone is in the house.? Pt has been increasingly more agitated towards and family worried that recently had hip surgery and is fragil. In the ED- work up include CBC which is unremarkable. CMP wnl, with creatinine clearance of 64.2. UA shows small leukocytes, culture positive for step a. (group b) started on aumentin. MOCA completed- pt scored 16/30 with most impairments on executive function, visuospatial (0/5), naming (1/3), language fluency and recall. Orientation is intact. 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 On the unit, pt continues to present with delusions of having an affair with someone from the [employer]. She states she is hoping for him to confessed. She denies SI/HI. We discussed finding of cognitive impairments and changes in mood. Medical Evaluation Reviewed: Yes HOSPITAL COURSE On the unit, pt was admitted on CV signed by invoked HCP and placed on 15 minutes checks for safety. After discussing risks, benefits and alternative treatment options, pt was started on risperidone for delusions and mood. She was also started on exelon for slowing of progression of dementia (pt primarily seems vascular but can be mixed etiology, still some benefit with exelon). Her affect gradually presented as less suspicious, less irritable, less ruminations about having an affair, although residual delusions still present. Pt sleeping and eating well. Some episodes of confusion in evening, but some improvement over the days. No SI/HI. There were no incidences of disruptive behaviors nor use of restraints. We had family meeting with pt's and adult children to discuss diagnosis of dementia, results of ACL and recommended supports in the community. Pt's family denied safety concerns at time of discharge. Status at Discharge Cognitive/behavioral status at discharge: Pt with brighter, less irritable although upset about having been in hospital for several days. No SI/HI. Less delusions related to having affair but residual symptoms noted. No aggression towards self or others. Pt sleeping and eating well. Functional status at discharge: independent ambulation Overall status at discharge: patient is progressing back to baseline Time Spent with Patient Time attestation: Total time managing care of this patient today ____ minutes. Discharge Plan Discharge Anticipated Discharge Date/Time: 07/16/22 09:36 Patient Disposition: Home, Self-Care Discharge Diagnosis: Vascular Dementia with delusions Referrals: Conner Gottlieb MD [Physician] - 2 days Physician,Alexus Palma [Primary Care Provider] - 07/23/22 1:00 am (Follow- up appointment made for 07/23/22 @ 1p.m with Kae CRESOP.) Discharge Medications: New rivastigmine tartrate 1.5 mg Capsule 1.5 mg PO BID Qty: 60 0RF insulin glargine [Lantus U-100 Insulin] 100 unit/mL Solution 17 unit subcut DAILY Qty: 10 0RF risperidone 2 mg Tablet 2 mg PO BID Qty: 60 0RF lorazepam 0.5 mg Tablet 0.5 mg PO BID Qty: 60 0RF mirtazapine 30 mg Tablet 30 mg PO BEDTIME Qty: 30 0RF propranolol 80 mg Capsule,Extended Release 24hr 160 mg PO BEDTIME Qty: 60 0RF Protocol: Hold for SBP/HR < HOLD for SBP < : 90 HOLD for HR < : 60 pravastatin 20 mg Tablet 20 mg PO BEDTIME Qty: 30 0RF albuterol sulfate [Ventolin HFA] 90 mcg/actuation Hfa Aerosol Inhaler 2 puff inhalation RQ6H Qty: 6.7 0RF tolterodine 4 mg Capsule,Extended Release 24hr 4 mg PO DAILY Qty: 30 0RF levothyroxine 75 mcg Tablet 75 mcg PO DAILY@0600 Qty: 30 0RF metformin 500 mg Tablet Extended Release 24 Hr 1,000 mg PO BIDWM Qty: 120 0RF Continued Trulicity 0.75 mg/0.5 mL pen injector 75 mg subcut FR Discontinued propranolol 160 mg capsule,extended release 24 hr 1 cap PO DAILY tolterodine 4 mg capsule,extended release 24hr 1 cap PO DAILY levothyroxine 75 mcg tablet 1 tab PO DAILY lorazepam 0.5 mg tablet 1 tab PO BID PRN (Reason: Anxiety) pravastatin 20 mg tablet 1 tab PO BEDTIME albuterol sulfate 90 mcg/actuation HFA aerosol inhaler 2 puff inhalation Q6H metformin 500 mg tablet extended release 24 hr 2 tab PO BID insulin degludec [Tresiba FlexTouch U-100] 100 unit/mL (3 mL) insulin pen 25 unit subcut DAILY Discharge Orders: Discharge Order (Routine); Ordered 07/16/22 Ordered By: Rekha Craig Diet: Regular diet Activity on Discharge: As tolerated Stand Alone Forms: Patient Portal Discharge page Activity Restrictions/Additional Instructions: Please follow-up with your primary care physician tomorrow. If you have any worsening or new symptoms, please return to the emergency room or call 911 Care Plan Goals: 1. Maintain mood 2. No aggression towards self or others Health Concerns: Follow up with PCP Plan of Treatment: 1. Take medications as prescribed 2. Go to nearest ED or call 911 in event of emergency. Assessment: Pt with brighter, slightly irritable, less delusions. No Signs of aggression towards self or others. No SI/HI. Pt sleeping and eating well.
[2022-07-22 11:44] LABS: Glucose, Whole Blood 221 mg/dL (60-115)
[2022-07-22 11:45] LABS: Glucose, Whole Blood 160 mg/dL (60-115)
== END 2022-07-16 11:55 | disposition home or self-care (01) | DRG 884 ==
LOC: HO.ED 18:40 → HO.PGERI 07-03 21:59
PROVIDERS: Admitting Provider Psychiatry & Neurology Psychiatry; Emergency Provider Emergency Medicine; Visit Provider Social Worker
DX: F01.52 Vascular dementia, unspecified severity, with psychotic disturbance (principal); N39.0 Urinary tract infection, site not specified; Z20.822 Contact with and (suspected) exposure to COVID-19; Z79.4 Long term (current) use of insulin; Z79.84 Long term (current) use of oral hypoglycemic drugs; Z79.890 Hormone replacement therapy; Z79.899 Other long term (current) drug therapy
CPT/HCPCS: 36415; 70551; 80053; 80307; 81001; 82565; 82607; 82746; 82947; 83036; 84443; 84484; 85025; 86140; 86780; 87086; 87147; 87635; 93005; 99285

== ENCOUNTER → 2022-12-13 12:35 | Outpatient (BNVA) | payer MEDICARE, OTHER, SELFPAY | PROVIDERS: Visit Provider Psychiatry & Neurology Neurology | DX: F01.50 Vascular dementia, unspecified severity, without behavioral disturbance, psychotic disturbance, mood disturbance, and anxiety (principal); F22 Delusional disorders; G20 Parkinson's disease | CPT/HCPCS: 99202 ==

== ENCOUNTER 2023-01-17 11:22 | Outpatient (REF) | payer MEDICARE, OTHER, SELFPAY ==
--- NOTE | ~2023-01-17 | MR_ITS ---
EXAMINATION: MR BRAIN WITHOUT CONTRAST CLINICAL INFORMATION: Dementia. COMPARISON: Brain MRI dated 07/02/2022. TECHNIQUE: Multiplanar, multisequence imaging of the brain was performed without contrast. FINDINGS: No diffusion abnormalities are identified to suggest an acute infarct. No mass effect or midline shift is seen. There are stable [id number] white matter signal changes with moderate diffuse parenchymal volume loss and concordant ex vacuo prominence of the ventricles. No extra-axial fluid collections are seen. Small chronic infarcts again visible in the cerebellum. The gradient refocused acquisition is normal. The craniovertebral junction, marrow signal, and midline structures are normal. The major intracranial flow voids at the level of the [place] are preserved. The dural venous sinus flow voids are maintained. The mastoid air cells are well aerated. There is moderate mucosal disease in the left sphenoid sinus. MR/MR head/brain wo con IMPRESSION: Stable [id number] chronic white matter signal changes and moderate diffuse parenchymal volume loss. No acute process. Moderate left sphenoid sinus mucosal disease.
== END 2023-01-17 11:23 | disposition home or self-care (01) ==
LOC: HO.MRI 11:22
PROVIDERS: PCP Internal Medicine; Visit Provider Psychiatry & Neurology Neurology
DX: F03.90 Unspecified dementia, unspecified severity, without behavioral disturbance, psychotic disturbance, mood disturbance, and anxiety (principal)
CPT/HCPCS: 70551

== ENCOUNTER 2023-04-10 13:59 | Outpatient (AMB) | payer MEDICARE, OTHER, SELFPAY ==
--- NOTE | 2023-04-10 14:00 | MHC.OFFVIS ---
Intake Vital Signs 04/10/23 14:01 Height 5 ft 2 in BP 142/76 H Blood Pressure Location Rt brachial Position Sitting Respiration 17 Pulse 88 Pulse Source Pulse Oximeter Pulse Oximetry (%) 96 Oxygen Delivery Method Room Air Intake Visit Reasons: 3m follow upcognitive impair-confirmed Intake Note: Pt presents to the office for a 3 month follow up for delusional disorder. She is here with daughter Kenya.She reports mobility has declined. She reports she is overall the same as she was at her last visit. Mechatronics Technician Required: No Allergies estradiol [From CombiPatch] Allergy (Verified 04/10/23 14:01) Unknown norethindrone [From CombiPatch] Allergy (Verified 04/10/23 14:01) Unknown sulfamethoxazole Allergy (Verified 04/10/23 14:01) Unknown HPI HPI Comments History of Present Illness Details 77y/o female comes for follow up regarding her dementia and delusions.She is more awake during daytime with decrease in Risperdal . SHe does not want to use CPAP. Physically she has slowed down. Previous history-About 2 years ago she started developing delusions . It was mild initially and infrequent , but in 7 months ago it became more frequent and intense. Her main delusion is she thinks her has an affair. Prior to that she had hallucinations , seeing spiders and people at home. She was taken to [facility] ER - diagnosed with UTI and discharged. But the delusions persisted and she was agitated - she was taken to [facility] , seen by psych nurse and was admitted for 2 weeks in the psych cramer. Her delusions were controlled, her MRI showed atrophy and vascular changes, she was started on risperdal, mirtazepine and exelon. Her delusions are controlled she is very sedated now. Her memory is good on some days .she is dependant on most ADLs.she is currently in a rehab correction.Her fpc memory is good but short term memory issues is worse she is more apathetic..she is very emotional and cries easily.she has sleep apnea on CPAP. she used to be very active socially at her [facility] but she stopped 7 mths ago. [facility] Medical History Parkinsonism Delusional disorder Vascular dementia Carotid atherosclerosis Hypothyroidism Diastolic dysfunction Depression REED on CPAP Obesity Combined hyperlipidemia HTN (hypertension) Diabetes Family History Father HTN (hypertension) Diabetes Mother HTN (hypertension) Sister HTN (hypertension) Diabetes Brother Diabetes HTN (hypertension) Social History Household Members: Spouse Housing: House Do you presently have visiting nurse or other home services: No Alcohol intake: never Patient Tobacco Use Status: Never used Tobacco e-Cigarette/Vaping Use: Never Used Second Hand Smoke Exposure: No Review of Systems Neuro Reports confusion Psych Reports confusion Physical Exam Vital Signs: Last Vital Signs Pulse 88 04/10/23 14:01 Resp 17 04/10/23 14:01 BP 142/76 H 04/10/23 14:01 Pulse Ox 96 04/10/23 14:01 Oxygen Delivery Method Room Air 04/10/23 14:01 Const General: cooperative, no acute distress and confusion Nutritional Appearance: obese Orientation/consciousness: patient oriented x3 and confusion Limitations: physical limitations Neuro Other: Decreased facial expression and blink Mild hypophonia Paucity of movement Moderate bradykinesia FFM and foot taps - decreased Gait not evaluated General: patient oriented x3, moves all extremities, no focal motor deficits and confusion Cranial nerves: Yes Facial sensation intact/muscles of mastication intact, Yes Bilaterally intact EOM present, Yes Nystagmus not present, Yes Normal facial strength present and Yes Midline tongue present Cognition (Neuro): abnormal cognition Motor exam (neuro): 5/5 motor strength present throughout and Normal motor muscle tone present throughout Coordination: [id number] test normal Assessment & Plan Assessment & Plan (1) Vascular dementia: Code(s): F01.50 - Vascular dementia, unspecified severity, without behavioral disturbance, psychotic disturbance, mood disturbance, and anxiety (2) Delusional disorder: Code(s): F22 - Delusional disorders (3) Parkinsonism: Comment: likely due to risperdal Code(s): G20 - Parkinson's disease Plan Decrease risperdal 0.5mg qam 2mg qhs continue exelon 3mg bid Increase physical activity Medications: Changed From risperidone 2 mg PO BID 60 tabs 0RF To risperidone 1/2 tab qama nd 2 tabs qhs orally 2 times a day; 90 tabs 3RF Refilled mirtazapine 30 mg PO BEDTIME 90 tabs 4RF Coding Level of Care Code Est Pt Level 4 (28176) Diagnoses Vascular dementia F01.50 Delusional disorder F22 Parkinsonism G20
[2023-04-10 14:01] VITALS: BP 142/76; PULSE 88; RESP 17; O2SAT 96
== END 2023-04-10 14:37 | disposition home or self-care (01) ==
PROVIDERS: Visit Provider Psychiatry & Neurology Neurology
DX: F01.52 Vascular dementia, unspecified severity, with psychotic disturbance (principal); F22 Delusional disorders; G20.C Parkinsonism, unspecified
CPT/HCPCS: 99214

== ENCOUNTER → 2023-04-10 13:59 | Outpatient (BNVA) | payer MEDICARE, OTHER, SELFPAY | PROVIDERS: Visit Provider Psychiatry & Neurology Neurology | DX: F01.50 Vascular dementia, unspecified severity, without behavioral disturbance, psychotic disturbance, mood disturbance, and anxiety (principal); F22 Delusional disorders; G20.C Parkinsonism, unspecified | CPT/HCPCS: 99212 ==

== ENCOUNTER 2023-11-10 15:46 | Outpatient (AMB) | payer MEDICARE, OTHER, SELFPAY ==
[2023-11-10 15:55] VITALS: BP 124/72; PULSE 77; RESP 17; O2SAT 97
--- NOTE | 2023-11-10 15:55 | MHC.OFFVIS ---
Vital Signs 11/10/23 15:55 Height 5 ft 2 in BP 124/72 Blood Pressure Location Lt brachial Position Sitting Respiration 17 Pulse 77 Pulse Source Pulse Oximeter Pulse Oximetry (%) 97 Oxygen Delivery Method Room Air Intake Visit Reasons: 6M follow up - # not in service Intake Note: Pt presents for 6 month follow up for delusional disorder. Desktop Support Manager Required: No Allergies estradiol [From CombiPatch] Allergy (Verified 11/10/23 15:55) Unknown norethindrone [From CombiPatch] Allergy (Verified 11/10/23 15:55) Unknown sulfamethoxazole Allergy (Verified 11/10/23 15:55) Unknown HPI Comments Details: 78y/o female comes for follow up regarding her dementia and delusions.During he rlast visit she was supposed to decrease her risperdal to 0.5mg qam and 2 mg qhs but due to unavailability of 1 mg [facility] without change instructions and she chiang sbeen getting 1mg qam 4 mg qhs .she is very sedated. SHe does not want to use CPAP. Physically she has slowed down. Previous history-About 2 years ago she started developing delusions . It was mild initially and infrequent , but in 7 months ago it became more frequent and intense. Her main delusion is she thinks her has an affair. Prior to that she had hallucinations , seeing spiders and people at home. She was taken to [facility] ER - diagnosed with UTI and discharged. But the delusions persisted and she was agitated - she was taken to [place] ER , seen by psych nurse and was admitted for 2 weeks in the psych cramer. Her delusions were controlled, her MRI showed atrophy and vascular changes, she was started on risperdal, mirtazepine and exelon. Her delusions are controlled she is very sedated now. Her memory is good on some days .she is dependant on most ADLs.she is currently in a rehab [facility].Her continuous churn buttermaker memory is good but short term memory issues is worse she is more apathetic..she is very emotional and cries easily.she has sleep apnea on CPAP. 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 [facility] Medical History Parkinsonism Delusional disorder Vascular dementia Carotid atherosclerosis Hypothyroidism Diastolic dysfunction Depression REED on CPAP Obesity Combined hyperlipidemia HTN (hypertension) Diabetes Family History Father HTN (hypertension) Diabetes Mother HTN (hypertension) Sister HTN (hypertension) Diabetes Brother Diabetes HTN (hypertension) Social History Household Members: Spouse Housing: House Do you presently have visiting nurse or other home services: No Alcohol intake: never Patient Tobacco Use Status: Never used Tobacco e-Cigarette/Vaping Use: Never Used Second Hand Smoke Exposure: No Review of Systems Neuro Reports confusion Psych Reports confusion Physical Exam Vital Signs: Last Vital Signs Pulse 77 11/10/23 15:55 Resp 17 11/10/23 15:55 BP 124/72 11/10/23 15:55 Pulse Ox 97 11/10/23 15:55 Oxygen Delivery Method Room Air 11/10/23 15:55 Const General: cooperative, no acute distress and confusion Nutritional Appearance: obese Orientation/consciousness: patient oriented x3 and confusion Limitations: physical limitations Neuro Other: Decreased facial expression and blink Mild hypophonia Paucity of movement Moderate bradykinesia FFM and foot taps - decreased Gait not evaluated General: patient oriented x3, moves all extremities, no focal motor deficits and confusion Cranial nerves: Yes Facial sensation intact/muscles of mastication intact, Yes Bilaterally intact EOM present, Yes Nystagmus not present, Yes Normal facial strength present and Yes Midline tongue present Cognition (Neuro): abnormal cognition Motor exam (neuro): 5/5 motor strength present throughout and Normal motor muscle tone present throughout Coordination: [id number] test normal Assessment & Plan Assessment & Plan (1) Vascular dementia: Code(s): F01.50 - Vascular dementia, unspecified severity, without behavioral disturbance, psychotic disturbance, mood disturbance, and anxiety Category: Medical (2) Delusional disorder: Code(s): F22 - Delusional disorders Category: Medical (3) Parkinsonism: Comment: likely due to risperdal Code(s): G20 - Parkinson's disease Category: Medical Plan Decrease risperdal 0.5mg qam 2mg qhs continue exelon 3mg bid Increase physical activity- continue PT Medications: Refilled risperidone 1/2 tab qama nd 2 tabs qhs orally 2 times a day; 90 tabs 3RF Coding Level of Care Code Est Pt Level 4 (84906) Diagnoses Vascular dementia F01.50 Delusional disorder F22 Parkinsonism G20
== END 2023-11-10 16:27 | disposition home or self-care (01) ==
PROVIDERS: Visit Provider Psychiatry & Neurology Neurology
DX: F01.52 Vascular dementia, unspecified severity, with psychotic disturbance (principal); F22 Delusional disorders; G20.C Parkinsonism, unspecified
CPT/HCPCS: 99214

== ENCOUNTER → 2023-11-10 15:46 | Outpatient (BNVA) | payer MEDICARE, OTHER, SELFPAY | PROVIDERS: Visit Provider Psychiatry & Neurology Neurology | DX: G20.A1 Parkinson's disease without dyskinesia, without mention of fluctuations (principal); F22 Delusional disorders; F01.50 Vascular dementia, unspecified severity, without behavioral disturbance, psychotic disturbance, mood disturbance, and anxiety | CPT/HCPCS: 99212 ==

== ENCOUNTER 2024-05-19 13:52 | Outpatient (AMB) | payer MEDICARE, OTHER, SELFPAY ==
--- NOTE | 2024-05-19 13:57 | A.OFFVIS_ITS ---
Vital Signs 05/19/24 14:03 Height 5 ft 2 in Intake Visit Reasons: 6 Month F/U Intake Note: Patient presents for 6 month follow up Allergies estradiol [From CombiPatch] Allergy (Verified 05/19/24 14:02) Unknown norethindrone [From CombiPatch] Allergy (Verified 05/19/24 14:02) Unknown sulfamethoxazole Allergy (Verified 05/19/24 14:02) Unknown Medication List - Last Reconciled 05/19/24 by Cornelius Pham PA-C acetaminophen 650 mg PO Q6H PRN albuterol sulfate 90 mcg/actuation (Ventolin HFA) 2 puffs inhalation RQ6H albuterol sulfate 90 mcg/actuation (ProAir HFA) 2 puffs inhalation Q6H PRN ascorbate calcium (vitamin C) 500 mg PO DAILY aspirin 81 mg PO DAILY betamethasone dipropionate 0.05% 1 appl topical DAILY PRN cranberry 400 mg PO DAILY docusate sodium (Colace) 100 mg PO DAILY dulaglutide (Trulicity) 3 mg subcut FR glucagon 1 mg subcut Q20M PRN levothyroxine 75 mcg PO DAILY@0600 magnesium hydroxide (Milk of Magnesia) 5 mL PO BEDTIME metformin ER 500 mg PO ONCE mirtazapine 30 mg PO BEDTIME multivitamin with iron-mineral 1 tab PO DAILY pravastatin 20 mg PO BEDTIME propranolol ER 160 mg See Protocol PO BEDTIME risperidone 2 mg PO ONCE rivastigmine tartrate 3 mg PO BID tolterodine ER 4 mg PO DAILY HPI Comments Details: 78y/o female comes for follow up regarding her dementia and delusions. She is very sedated, takes Risperidal 2mg PO at bedtime. H/O Vascular Dementia, and progressive decline. PACE program PCP Kendra Ruby, SOCIAL SCIENCE MANAGER at [facility]. OT and PT 2x week and nurse on site, she Lives at [facility]. Sleeps at 9pm and gets up 6-7am. 9 hours per night, slow to move. Naps through the day. When turning directions she is very slow and had difficulty maneuvering during positional changes. Denies Hallucinations. Dreams a lot and talks in her sleep. Mood is groggy- apathetic, indifferent, calm easy going. Constipation at baseline every 3 days BM, encouraged hydrating, taking D-Mannose and Cranberry juice for UTIs Purwick Device ordered, to avoid UTIs, as they will keep her dry from ongoing incontinence. Physically she has slowed down. Not seeing behavioral health at this time. Diet is good, doesn't snack in between but eats well during meal times. [facility] Medical History Parkinsonism Delusional disorder Vascular dementia Carotid atherosclerosis Hypothyroidism Diastolic dysfunction Depression REED on CPAP Obesity Combined hyperlipidemia HTN (hypertension) Diabetes Family History Father HTN (hypertension) Diabetes Mother HTN (hypertension) Sister HTN (hypertension) Diabetes Brother Diabetes HTN (hypertension) Social History Household Members: Spouse Housing: House Do you presently have visiting nurse or other home services: No Alcohol intake: never Patient Tobacco Use Status: Never used Tobacco e-Cigarette/Vaping Use: Never Used Second Hand Smoke Exposure: No Review of Systems Neuro Reports confusion Psych Reports confusion Physical Exam Const General: cooperative, no acute distress and confusion Nutritional Appearance: obese Orientation/consciousness: patient oriented x3 and confusion Limitations: physical limitations Neuro Other: Decreased facial expression and blink Mild hypophonia Paucity of movement Moderate bradykinesia FFM and foot taps - decreased Gait not evaluated General: patient oriented x3, moves all extremities, no focal motor deficits and confusion Cranial nerves: Yes Facial sensation intact/muscles of mastication intact, Yes Bilaterally intact EOM present, Yes Nystagmus not present, Yes Normal facial strength present and Yes Midline tongue present Cognition (Neuro): abnormal cognition Motor exam (neuro): 5/5 motor strength present throughout and Normal motor muscle tone present throughout Coordination: [id number] test normal Assessment & Plan Assessment & Plan (1) Parkinsonism: Comment: likely due to risperdal Code(s): G20 - Parkinson's disease Category: Medical Qualifiers: Parkinsonism type: unspecified Qualified Code(s): G20.C - Parkinsonism, unspecified (2) Delusional disorder: Code(s): F22 - Delusional disorders Category: Medical (3) Vascular dementia with delusions: Code(s): F01.52 - Vascular dementia, unspecified severity, with psychotic disturbance Category: Medical Plan Dementia Continue Supportive care at [facility]. Continue to engage patient in daily PT/OT as patient is able to tolerate. Walking daily to the dining room, taking medications on time. Monitor sleep and falls. F/u as needed. Coding Level of Care Code Est Pt Level 4 (70257) Diagnoses Parkinsonism, unspecified Parkinsonism type G20.C Parkinsonism type: unspecified Delusional disorder F22 Vascular dementia with delusions F01.52 Time Spent (min) 40 Comment at baseline
--- OUTSIDE RECORDS SUMMARY | 2024-05-20 02:37 | XMS_ITS | Clinical Summary ---
Author Organization Unknown Care Team Providers Care Fiberglass Machine Operator Name Role Phone JUAN ALBERTO RODRIGUEZ Unavailable Unavaila ble LISSETTE MANAGER SUPPLIER, SUHAS Unavailable Unavailable IRMA PT, LATONYA Unavailable Unavailable SPAFFORD OT, KATHY Unavailable Unavailable [employer] SALES [employer] OPER[employer] TRAINEE, JOHN Unavailable Unavailable [employer] SUPPORT SPECIALIST/PERALTA, DAXA Unavailable Unav larry PATINO RN, SHAWNA Unavailable Unavailable Payers Payer Name Policy Type Policy Number Effective Date Expira tion Date MEDICARE.NGS.PDGM [id number] Problems Condition Name Condition Details Condition Category Status Onset Date Resolution Date Last Treatment Date Treating Clinician Comments 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 CHR KDNY Active 12-24 00:00: 00 UNSPECIFIED SYSTOLIC (CONGESTIVE) HEART FAILURE Active 12-24 00:00: 00 TYPE 2 DIABETES MELLITUS W DIABETIC CHRONIC KIDNEY DISEASE Active 12-24 00:00: 00 CHRONIC KIDNEY DISEASE, UNSPECIFIED Active 12-24 00:00: 00 MILD COGNITIVE IMPAIRMENT OF UNCERTAIN OR UNKNOWN ETIOLOGY Active 06-09 00:00: 00 TYPE 2 DIABETES MELLITUS WITH DIABETIC NEUROPATHY, UNSP Active 06-09 00:00: 00 HYPERLIPIDEM IA, UNSPECIFIED Active 06-09 00:00: 00 RESTLESS LEGS SYNDROME Active 12-24 00:00: 00 ACUTE VIRAL HEPATITIS, UNSPECIFIED Active 06-09 00:00: 00 OVERACTIVE BLADDER Active 06-09 00:00: 00 OTHER SPECIFIED ABNORMALITIE S OF PLASMA PROTEINS Active 06-09 00:00: 00 UNSPECIFIED ASTHMA, UNCOMPLICATE D Active 06-09 00:00: 00 MIGRAINE, UNSP, NOT INTRACTABLE, WITHOUT STATUS MIGRAINOSUS Active 06-09 00:00: 00 OBSTRUCTIVE SLEEP APNEA (ADULT) (PEDIATRIC) Active 06-09 00:00: 00 UNSPECIFIED MOOD [AFFECTIVE] DISORDER Active 06-09 00:00: 00 URTICARIA, UNSPECIFIED Active 06-09 00:00: 00 HYPOTHYROIDI SM, UNSPECIFIED Active 06-09 00:00: 00 DEPRESSION, UNSPECIFIED Active 06-09 00:00: 00 MORBID (SEVERE) OBESITY DUE TO EXCESS CALORIES Active 12-25 00:00: 00 BODY MASS INDEX [BMI]40.0-44 .9, ADULT Active 12-25 00:00: 00 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 Active 12-23 00:00: 00 PERSONAL HISTORY OF URINARY (TRACT) INFECTIONS Active 01-03 00:00: 00 LONG-TERM (CURRENT) USE OF ASPIRIN Active 12-23 00:00: 00 PRESENCE OF ARTIFICIAL KNEE JOINT, BILATERAL Active 06-09 00:00: 00 PERSONAL HISTORY OF PNEUMONIA (RECURRENT) Active 12-24 00:00: 00 Allergies, Adverse Reactions, Alerts Allergy Name Allergy Type Status Severity Reaction(s) Onset Date Inactive Date Treating Clinician Comments SULFA (SULFONAMIDE S) Propensity to adverse reactions Active 12-19 09:04: 40 COMBIPATCH Propensity to adverse reactions Active 12-19 09:06: 15 Medications Ordered Medication Name Filled Medication Name Start Date Stop Date Current Medication? Ordering Clinician Indication Dosage Frequency Signature (SIG) Comments Components aspirin 81 mg tablet,oz yed release 06-09 00:00: 00 12-18 23:59 :00 No [id number] HEART HEALTH Per instruc tions DAILY Per instructio ns DAILY (route: oral) Med Classific ation: Hematolog ical Agents famotidine 20 mg tablet 06-09 00:00: 00 12-18 23:59 :00 No [id number] GERD Per instruc tions 2 TIMES DAILY Per instructio ns 2 TIMES DAILY (route: oral) Med Classific ation: Gastroint estinal Therapy Agents gabapentin 300 mg capsule 06-09 00:00: 00 12-18 23:59 :00 No [id number] RESTLESS LEGS Per instruc tions BEDTIME Per instructio ns BEDTIME (route: oral) Med Classific ation: Central Nervous System Agents levothyroxi ne 75 mcg tablet 06-09 00:00: 00 12-18 23:59 :00 No [id number] HYPOTHYROID ISM Per instruc tions DAILY Per instructio ns DAILY (route: oral) Med Classific ation: Endocrine lorazepam 0.5 mg tablet 06-09 00:00: 00 12-18 23:59 :00 No [id number] ANXIETY Per instruc tions 2 TIMES DAILY Per instructio ns 2 TIMES DAILY (route: oral) Med Classific ation: Central Nervous System Agents metformin 500 mg tablet 06-09 00:00: 00 12-18 23:59 :00 No [id number] DM Per instruc tions 2 TIMES DAILY Per instructio ns 2 TIMES DAILY (route: oral) Med Classific ation: Endocrine mirtazapine 30 mg tablet 06-09 00:00: 00 12-18 23:59 :00 No [id number] DEPRESSION Per instruc tions DAILY Per instructio ns DAILY (route: oral) Med Classific ation: Central Nervous System Agents Multivitami n 50 Plus tablet 06-09 00:00: 00 12-18 23:59 :00 No [id number] SUPPLEMENT Per instruc tions DAILY Per instructio ns DAILY (route: oral) Med Classific ation: Electroly te Balance-N utritiona l Products pravastatin 20 mg tablet 06-09 00:00: 00 12-18 23:59 :00 No [id number] HLD Per instruc tions BEDTIME Per instructio ns BEDTIME (route: oral) Med Classific ation: Cardiovas cular Therapy Agents propranolol ER 160 mg capsule,24 hr,extended release 06-09 00:00: 00 12-18 23:59 :00 No [id number] HTN Per instruc tions DAILY Per instructio ns DAILY (route: oral) Med Classific ation: Cardiovas cular Therapy Agents risperidone 2 mg tablet 2- 00:00: 00 12-18 23:59 :00 No [id number] ANTIPSYCHOT IC Per instruc tions 2 TIMES DAILY Per instructio ns 2 TIMES DAILY (route: oral) Med Classific ation: Central Nervous System Agents rivastigmin e 1.5 mg capsule 2-23 00:00: 00 12-18 23:59 :00 No [id number] MEMORY Per instruc tions 2 TIMES DAILY Per instructio ns 2 TIMES DAILY (route: oral) Med Classific ation: Cognitive Disorder Therapy tolterodine ER 4 mg capsule,ext ended release 24 hr 06-09 00:00: 00 12-18 23:59 :00 No [id number] BLADDER CONTROL Per instruc tions 2 TIMES A WEEK Per instructio ns 2 TIMES A WEEK (route: oral) Med Classific ation: Genitouri nary Therapy Tresiba FlexTouch U-100 insulin 100 unit/mL (3 mL) subcutaneou s pen 06-09 00:00: 00 12-18 23:59 :00 No [id number] DM Per instruc tions DAILY Per instructio ns DAILY (route: subcutaneo us) Med Classific ation: Endocrine Trulicity 0.75 mg/0.5 mL subcutaneou s pen injector 06-09 00:00: 00 12-18 23:59 :00 No [id number] DM Per instruc tions WEEKLY Per instructio ns WEEKLY (route: subcutaneo us) Med Classific ation: Endocrine Vitamin C 500 mg capsule,ext ended release 06-09 00:00: 00 12-18 23:59 :00 No [id number] SUPPLEMENT Per instruc tions DAILY Per instructio ns DAILY (route: oral) Med Classific ation: Electroly te Balance-N utritiona l Products Vitamin D3 125 mcg (5,000 unit) tablet 06-09 00:00: 00 12-18 23:59 :00 No [id number] SUPPLEMENT Per instruc tions DAILY Per instructio ns DAILY (route: oral) Med Classific ation: Electroly te Balance-N utritiona l Products risperidone 2 mg tablet 12-07 00:00: 00 Yes [id number] BEHAVIOR 1 tablet 2 TIMES DAILY 1 tablet 2 TIMES DAILY (route: oral) Med Classific ation: Central Nervous System Agents risperidone 2 mg tablet 12-07 00:00: 00 12-25 00:00 :00 No [id number] Per instruc tions Per instructio ns (route: oral) Med Classific ation: Central Nervous System Agents amoxicillin 875 mg-potassiu m clavulanate 125 mg tablet 12-04 00:00: 00 12-30 23:59 :00 No [id number] UTI, PNEUMONIA 1 tablet EVERY 12 HOURS 1 tablet EVERY 12 HOURS (route: oral) Med Classific ation: Anti-Infe ctive Agents amoxicillin 875 mg-potassiu m clavulanate 125 mg tablet 12-04 00:00: 00 12-25 00:00 :00 No [id number] Per instruc tions Per instructio ns (route: oral) Med Classific ation: Anti-Infe ctive Agents rivastigmin e 3 mg capsule 12-02 00:00: 00 Yes [id number] DEMENTIA 1 capsule 2 TIMES DAILY 1 capsule 2 TIMES DAILY (route: oral) Med Classific ation: Cognitive Disorder Therapy rivastigmin e 3 mg capsule 12-02 00:00: 00 12-25 00:00 :00 No [id number] Per instruc tions Per instructio ns (route: oral) Med Classific ation: Cognitive Disorder Therapy Trulicity 0.75 mg/0.5 mL subcutaneou s pen injector 11-29 00:00: 00 12-25 00:00 :00 No [id number] Per instruc tions Per instructio ns (route: subcutaneo us) Med Classific ation: Endocrine Trulicity 0.75 mg/0.5 mL subcutaneou s pen injector 11-29 00:00: 00 Yes [id number] DM .5 mL WEEKLY .5 mL WEEKLY (route: subcutaneo us) Med Classific ation: Endocrine cephalexin 500 mg capsule 11-19 00:00: 00 12-25 00:00 :00 No [id number] Per instruc tions TWICE A DAY FOR 5 DAYS Per instructio ns TWICE A DAY FOR 5 DAYS (route: oral) Med Classific ation: Anti-Infe ctive Agents albuterol sulfate HFA 90 mcg/actuati on aerosol inhaler 12-25 00:00: 00 Yes [id number] SOB, WHEEZING 2 puff EVERY 6 HOURS 2 puff EVERY 6 HOURS (route: inhalation ) Med Classific ation: Respirato ry Therapy Agents aspirin 81 mg tablet,oz yed release 12-25 00:00: 00 Yes [id number] HEART HEALTH 1 tablet DAILY 1 tablet DAILY (route: oral) Med Classific ation: Hematolog ical Agents betamethaso ne dipropionat e 0.05 % topical cream 12-25 00:00: 00 Yes [id number] SKIN IRRITATION 1 inch 2 TIMES DAILY 1 inch 2 TIMES DAILY (route: topical) Med Classific ation: Dermatolo gical CRANBERRY 450 12-25 00:00: 00 Yes [id number] UTI ASSISTANCE 1 mg DAILY 1 mg DAILY (route: BY MOUTH) Med Classific ation: NONE levothyroxi ne 75 mcg tablet 12-25 00:00: 00 Yes [id number] HYPOTHYROID ISM 1 tablet DAILY 1 tablet DAILY (route: oral) Med Classific ation: Endocrine lorazepam 0.5 mg tablet 12-25 00:00: 00 Yes [id number] ANXIETY 1 tablet 2 TIMES DAILY 1 tablet 2 TIMES DAILY (route: oral) Med Classific ation: Central Nervous System Agents metformin 500 mg tablet 12-25 00:00: 00 Yes [id number] DM 2 tablet DAILY 2 tablet DAILY (route: oral) Med Classific ation: Endocrine mirtazapine 30 mg tablet 12-25 00:00: 00 Yes [id number] INSOMNIA 1 tablet BEDTIME 1 tablet BEDTIME (route: oral) Med Classific ation: Central Nervous System Agents Multivitami n 50 Plus tablet 12-25 00:00: 00 Yes [id number] SUPPLEMENT 1 tablet DAILY 1 tablet DAILY (route: oral) Med Classific ation: Electroly te Balance-N utritiona l Products pravastatin 40 mg tablet 12-25 00:00: 00 Yes [id number] CHOLESTEROL 1 tablet DAILY 1 tablet DAILY (route: oral) Med Classific ation: Cardiovas cular Therapy Agents propranolol ER 160 mg capsule,24 hr,extended release 12-25 00:00: 00 Yes [id number] HEADACHES 1 capsule DAILY 1 capsule DAILY (route: oral) Med Classific ation: Cardiovas cular Therapy Agents tolterodine ER 4 mg capsule,ext ended release 24 hr 12-25 00:00: 00 Yes [id number] FREQUENT URINATION 1 capsule DAILY 1 capsule DAILY (route: oral) Med Classific ation: Genitouri nary Therapy Tresiba FlexTouch U-100 insulin 100 unit/mL (3 mL) subcutaneou s pen 12-25 00:00: 00 Yes [id number] DM 25 unit DAILY 25 unit DAILY (route: subcutaneo us) Med Classific ation: Endocrine Vitamin C 1,000 mg tablet 12-25 00:00: 00 Yes [id number] SUPPLEMENT 1 tablet DAILY 1 tablet DAILY (route: oral) Med Classific ation: Electroly te Balance-N utritiona l Products Vital Signs Vital Name Observation Time Observation Value Commen ts Temperature 2023-04-16 11:57:00.000 97.6 [degF] Temperature 2023-04-02 13:24:00.000 97.2 [degF] Temperature 2023-03-25 15:19:00.000 97.9 [degF] Temperature 2023-03-17 14:53:00.000 97.7 [degF] Temperature 2023-03-12 15:27:00.000 97.1 [degF] Temperature 2023-03-07 13:22:00.000 98.2 [degF] Temperature 2023-02-25 14:30:00.000 97.5 [degF] Pulse 2023-04-16 11:57:00.000 76 /min Pulse 2023-04-02 13:24:00.000 75 /min Pulse 2023-03-25 15:19:00.000 77 /min Pulse 2023-03-17 14:53:00.000 74 /min Pulse 2023-03-12 15:27:00.000 79 /min Pulse 2023-03-07 13:22:00.000 81 /min Pulse 2023-02-25 14:30:00.000 78 /min O2 Saturation (%) 2023-04-16 11:57:00.000 90 % O2 Saturation (%) 2023-04-02 13:24:00.000 94 % O2 Saturation (%) 2023-03-17 14:53:00.000 92 % O2 Saturation (%) 2023-03-07 13:24:00.000 92 % O2 Saturation (%) 2023-02-25 14:30:00.000 96 % Respirations 2023-04-16 11:57:00.000 18 /min Respirations 2023-04-02 13:24:00.000 18 /min Respirations 2023-03-25 15:19:00.000 18 /min Respirations 2023-03-17 14:53:00.000 18 /min Respirations 2023-03-12 15:27:00.000 18 /min Respirations 2023-03-07 13:22:00.000 18 /min Respirations 2023-02-25 14:30:00.000 18 /min Weight (lbs) 2023-04-16 12:00:00.000 245 [lb_av] Weight (lbs) 2023-04-02 13:24:00.000 244.8 [lb_av] Weight (lbs) 2023-03-25 15:21:00.000 247.8 [lb_av] Weight (lbs) 2023-03-17 14:54:00.000 245.7 [lb_av] Weight (lbs) 2023-03-12 15:31:00.000 247.2 [lb_av] Weight (lbs) 2023-03-07 13:24:00.000 244.7 [lb_av] Weight (lbs) 2023-02-25 14:30:00.000 146.7 [lb_av] Systolic Blood Pressure 2023-04-16 11:57:00.000 118 mm [Hg] Systolic Blood Pressure 2023-04-02 13:24:00.000 110 mm [Hg] Systolic Blood Pressure 2023-03-25 15:19:00.000 122 mm [Hg] Systolic Blood Pressure 2023-03-17 14:53:00.000 122 mm [Hg] Systolic Blood Pressure 2023-03-12 15:27:00.000 138 mm [Hg] Systolic Blood Pressure 2023-03-07 13:22:00.000 130 mm [Hg] Systolic Blood Pressure 2023-02-25 14:30:00.000 142 mm [Hg] Diastolic Blood Pressure 2023-04-16 11:57:00.000 70 mm [Hg] Diastolic Blood Pressure 2023-04-02 13:24:00.000 68 mm [Hg] Diastolic Blood Pressure 2023-03-25 15:19:00.000 74 mm [Hg] Diastolic Blood Pressure 2023-03-17 14:53:00.000 64 mm [Hg] Diastolic Blood Pressure 2023-03-12 15:27:00.000 86 mm [Hg] Diastolic Blood Pressure 2023-03-07 13:22:00.000 74 mm [Hg] Diastolic Blood Pressure 2023-02-25 14:30:00.000 86 mm [Hg] Plan of Treatment Planned Activity Planned Date Details Comments Future Scheduled Test AGENCY MAY PERFORM A RESUMPTION OF CARE VISIT FOLLOWING ANY HOSPITAL ADMISSION. PHYSICAL THERAPY TO EVALUATE, ASSESS AND MONITOR, PROVIDE SKILLED THERAPEUTIC INTERVENTION, ACTIVITY, EDUCATION, AND TRAINING TO ADDRESS: [code = AGENCY MAY PERFORM A RESUMPTION OF CARE VISIT FOLLOWING ANY HOSPITAL ADMISSION. PHYSICAL THERAPY TO EVALUATE, ASSESS AND MONITOR, PROVIDE SKILLED THERAPEUTIC INTERVENTION, ACTIVITY, EDUCATION, AND TRAINING TO ADDRESS:] Future Scheduled Test TRANSFER T RAINING (PT) [code = TRANSFER TRAINING (PT)] Future Scheduled Test GAIT TRAIN ING (PT) [code = GAIT TRAINING (PT)] Future Scheduled Test STAIR MARIANO QASIM (PT) [code = STAIR TRAINING (PT)] Future Scheduled Test NEUROMUSCU LAR RE-EDUCATION / BALANCE RETRAINING (PT) [code = NEUROMUSCULAR RE-EDUCATION / BALANCE RETRAINING (PT)] Future Scheduled Test THERAPEUTI C EXERCISES (PT) [code = THERAPEUTIC EXERCISES (PT)] Future Scheduled Test OXYGEN SAT URATION (PT). NOTIFY IF 02SATS BELOW 90% AFTER 10 MIN OF REST. [code = OXYGEN SATURATION (PT). NOTIFY MD IF 02SATS BELOW 90% AFTER 10 MIN OF REST.] Future Scheduled Test DIABETES M ANAGEMENT (PT) [code = DIABETES MANAGEMENT (PT) ] Future Scheduled Test PHYSICAL T HERAPY TO ASSESS AND RECORD PATIENT REPORTED WEIGHT AND NOTIFY CM / FIELD CLINICAL ENGINEER FOR MD NOTIFICATION FOR SIGNS AND SYMPTOMS OF EXACERBATION (2LB WEIGHT GAIN IN 1 DAY, 5LBS IN A WEEK OR 5 LBS OVER BASELINE); [code = PHYSICAL THERAPY TO ASSESS AND RECORD PATIENT REPORTED WEIGHT AND NOTIFY CM / FIELD CLINICAL ENGINEER FOR MD NOTIFICATION FOR SIGNS AND SYMPTOMS OF EXACERBATION (2LB WEIGHT GAIN IN 1 DAY, 5LBS IN A WEEK OR 5 LBS OVER BASELINE);] Goal 2023-02-20 Patient Goal - STAY HOME Goal 2023-04-16 Patient Goal - STAY HOME Goal Provider Goal - Goal Provider Goal - PT STG: PATIENT WILL DEMONSTRATE IMPROVED TRANSFERS FROM SUP TO INDEPENDENT WITH UE ASSIST AND WALKER WITHIN 3 WEEKS Goal Provider Goal - PT STG: PATIENT WILL DEMONSTRATE IMPROVED POSTURE AND ADEQUATE STEP LENGTH BILATERALLY TO IMPROVE GAIT PATTERN WITHIN 4 WEEKS PT LTG: PATIENT WILL DEMONSTRATE IMPROVED AMBULATION FROM SUP TO INDEPENDENT WITH WALKER IN HOME AND NT TO SBA WITH ROLLATOR OUTDOORS WITHIN 9 WEEKS Goal Provider Goal - PT STG: PATIENT WILL DEMONSTRATE PROPER PACING AND SEQUENCING WITH STAIR MOBILITY WITHIN 4 WEEKS PT LTG: PATIENT WILL DEMONSTRATE IMPROVED ABILITY TO SAFELY NEGOTIATE STAIRS FROM UNABLE TO SBA WITH CANE AND RAIL WITHIN 9 WEEKS Goal Provider Goal - PT LTG: PATIENT WILL DEMONSTRATE REDUCED FALL RISK EVIDENCED BY TUG TEST (CUT SCORE >11 SECONDS INDICATES INCREASED FALL RISK) IMPROVING FROM 34 SECONDS TO 20 SECONDS WITHIN 9 WEEKS Goal Provider Goal - PT STG: PATIENT WILL DEMONSTRATE INDEPENDENCE WITH PROGRESSED LOWER EXTREMITY HOME EXERCISE PROGRAM WITHIN 4 WEEKS PT LTG: PATIENT WILL DEMONSTRATE IMPROVED FUNCTIONAL STRENGTH EVIDENCED BY FIVE TIMES SIT TO STAND TEST (CUT SCORE >12 SECONDS INDICATES AN INCREASED FALL RISK) IMPROVING FROM 35 SECONDS TO 25 SECONDS WITHIN 9 WEEKS PT LTG: PATIENT WILL DEMONSTRATE INCREASED STRENGTH OF BILATERAL LES FROM 3+/5 TO 4/5 WITHIN 9 WEEKS IN ORDER TO IMPROVE SAFETY AND STABILITY WITH GAIT AND STAIRS Goal Provider Goal - PATIENT WILL MAINTAIN OXYGEN SATURATION WITHIN PHYSICIAN ORDERED PARAMETERS THROUGHOUT EPISODE OF CARE Goal Provider Goal - PATIENTS BLOOD SUGAR WILL REMAIN WELL CONTROLLED THROUGHOUT EPISODE OF CARE AND PATIENT WILL NOT HAVE ANY SIGNS OF SKIN BREAKDOWN OR COMPLICATIONS. Goal Provider Goal - PT GOAL: PATIENTS WEIGHT WILL REMAIN WELL CONTROLLED THROUGHOUT EPISODE OF CARE. Reason for Visit MINIMUM ASSIST WITH TRANSFER/AMBULATION/ADLS Encounters Start Date/Time End Date/Time Encounter Type Admission Type Attending [facility] Care Department Encounter ID Discharge Date Discharge Status Discharge Condition Discharge Reason Percent Goals Met 2022-12-25 00:00:00 2023-04-16 00:00:00 Outpatient RECERTIFIC SHAWNA [facility] [id number] 2023-04-16 00:00:00 DISCHARGE TO HOME OR SELF CARE MINIMUM ASSIST WITH TRANSFER/A MBULATION/ ADLS HH OR PAL- GOALS MET 66.67
--- OUTSIDE RECORDS SUMMARY | 2024-05-20 02:37 | XMS_ITS | Continuity of Care Document ---
Author Organization [facility] Address [address] [address] Phone Care Team Providers Care Berry Planter Name Role Phone Kendra Ruby NP Unavailable Unavailable Allergies, Adverse Reactions, Alerts Substance Reaction Status Criticality No Known Allergies Active No Inform ation Medications Medication Instructions Dosage Effective Dates (start - stop) Status Comments Vitamin B-12 1,000 mcg tablet take one tablet by mouth daily - Active Trulicity 3 mg/0.5 mL subcutaneous pen injector inject (3MG) by subcutaneous route every week 3 MG - Active increased FreeStyle Stewart 3 [place] used to check blood sugars - Active levothyroxine 75 mcg tablet take 1 tablet by oral route every day in the am 30 min before eating or drinking on an empty stomach - Active metformin ER 500 mg tablet,extended release 24 hr take 1 tablet by oral route every day with morning meal - Active mirtazapine 30 mg tablet SCRIPT BY NEURO9 take 1 tablet by oral route every day before bedtime - Active pravastatin 40 mg tablet take 1 tablet by oral route every day at bedtime - Active propranolol ER 160 mg capsule,24 hr,extended release take 1 capsule by oral route every day 160 MG - Active CertaVite Senior 0.4 mg-300 mcg-250 mcg tablet take one tablet by mouth daily - Active risperidone 2 mg tablet SCRPT BY NEURO take 1 tablet by oral route daily at bedtime - Active rivastigmine 3 mg capsule SCRIT BY NEUROtake 1 capsule by oral route 2 times every day in the morning and evening with food - Active Vitamin C 1,000 mg tablet take one tablet by mouth daily - Active aspirin 81 mg tablet,delayed release take 1 tablet by oral route every day 81 MG - Active Tresiba FlexTouch U-100 insulin 100 unit/mL (3 mL) subcutaneous pen inject 45 units by subcutaneous route daily - Active albuterol sulfate HFA 90 mcg/actuation aerosol inhaler inhale 2 puff by inhalation route every 4 - 6 hours as needed wheezing and sob - Active FreeStyle Stewart 3 Sensor device used to check blood sugars - Active Procedures Procedure Date THERAPEUTIC ACTIVITIES OT EVAL LOW COMPLEX 30 MIN THERAPEUTIC ACTIVITIES PT RE-EVAL EST PLAN CARE MED NUTRITION INDIV SUBSEQ THERAPEUTIC EXERCISES GAIT TRAINING THERAPY THERAPEUTIC ACTIVITIES THERAPEUTIC EXERCISES GAIT TRAINING THERAPY OT EVAL LOW COMPLEX 30 MIN THERAPEUTIC EXERCISES THERAPEUTIC ACTIVITIES GAIT TRAINING THERAPY THERAPEUTIC EXERCISES THERAPEUTIC ACTIVITIES THERAPEUTIC EXERCISES THERAPEUTIC ACTIVITIES PT EVAL LOW COMPLEX 20 MIN OT EVAL LOW COMPLEX 30 MIN MEDICAL NUTRITION INDIV IN IMMUNIZATION ADMIN IIV NO PRSV INCREASED AG IM INIT PM E/M NEW PAT 65+ YRS Advance Directives Directive Yes / No Effective Date File Name No Information Encounters Encounter Description Practice Location Reason(s) For Visit Diagnoses Date Provider Providers Copied on Encounter [facility], [address] [place] [address], [place], [place], [id number], [place] tel:[phone] [place] No Information 4 Tung Gardner. [address] Mariana banuelos [place], [id number] , [place]. tel: [phone] [facility], [address], [place], [place], [id number], [place] tel:[phone] [place] Muscle weakness (generalized) May- 4 Bharath Stokeseen. [address] Foley [place], [id number] , [place]. tel:[phone] [facility], [address], [place], [place], [id number], [place] tel:[phone] [place] Encounter for rehabilitation evaluation 4 Hans Swift. [address] Mariana banuelos [place], [id number] . tel:[phone] [facility], [address], [place], [place], [id number], [place] tel:[phone] [place] No Information May- 4 Tung Kendra. [address] [place] [place], [id number] , [place]. tel: [phone] [facility], [address], [place], [place], [id number], [place] tel:[phone] [place] Muscle weakness (generalized)Ot her abnormalities of gait and mobility May- 4 Bharath Yepez. [address]iana Hernandes [place], [id number] , [place]. tel:[phone] [facility], [address], [place], [place], [id number], [place] tel:[phone] [place] Encounter for rehabilitation evaluation 4 Paris Jerry. [address] Hern[place], [id number] , [place]. tel: [phone] [facility], [address], [place], [place], [id number], [place] tel:[phone] [place] No Information May-0 4 Tung Gardner. [address] [place], [id number] , [place]. tel:[phone] [facility], [address] [facility] [address], [place], [place], [id number], [place] tel:[phone] [place] Encounter for nutritional assessmentDiabe tic nutritional counseling completed 4 Luz Ortegaa. [address] Mariana Michael [place], [id number] , [place]. tel:[phone] [facility], [address] [facility] [address] [facility], [place], [place], [id number], [place] tel:[phone] [place] Follow-up (chief complaint)P EE FUV #1 (chief complaint) No Information May- 4 Tung Gardner. [address] [place], [id number] , [place]. tel:[phone] [facility], [address] [facility] [address] [facility], [place], [place], [id number], [place] tel:[phone] [place] Muscle weakness (generalized)Ot her abnormalities of gait and mobility 0 4 Paris Jerry. [address] [place] [place], [id number] , [place]. tel:[phone] [facility], [address] [facility] [address] [facility], [place], [place], [id number], [place] tel:[phone] [place] Muscle weakness (generalized) 4 Bharath Yepez. [address] [place], [id number] , [place]. tel:[phone] [facility], [address] [facility] [address] [facility], [place], [place], [id number], [place] tel:[phone] [place] Muscle weakness (generalized)Ot her abnormalities of gait and mobility 4 Paris Jerry. [address] [place], [id number] , [place]. tel: [phone] [facility], [address], [place], [place], [id number], [place] tel:[phone] [place] Encounter for rehabilitation evaluation 4 Bharath Yepez. [address] Mariana Michael [place], [id number] , [place]. tel: [phone] [facility], [address], [place], [place], [id number], [place] tel:[phone] [place] Muscle weakness (generalized)Ot her abnormalities of gait and mobility 4 Paris Jerry. [address] [place] [place], [id number] , [place]. tel: [phone] [facility], [address], [place], [place], [id number], [place] tel:[phone] [place] Other abnormalities of gait and mobilityMuscle weakness (generalized) 4 Paris Jerry. [address] [place] [place], [id number] , [place]. tel:[phone] [facility], [address], [place], [place], [id number], [place] tel:[phone] [place] Muscle weakness (generalized)Ot her abnormalities of gait and mobility 4 Paris Jerry. [address] [place] [place], [id number] , [place]. tel:[phone] [facility], [address], [place], [place], [id number], [place] tel:[phone] [place] Muscle weakness (generalized)Ot her abnormalities of gait and mobility 4 Paris Jeryr. [address] [place] [place], [id number] , [place]. tel: [phone] [facility], [address], [place], [place], [id number], [place] tel:[phone] [place] Encounter for rehabilitation evaluation 4 Paris Jerry. [address], [place], [id number] , [place]. tel:[phone] [facility], [address] [facility] [address] [facility], [place], [place], [id number], [place] tel:[phone] [place] Encounter for rehabilitation evaluation 4 Bharath Yepez. [address] [place], [id number] , [place]. tel:[phone] [facility], [address] [facility] [address], [place], [place], [id number], [place] tel:[phone] [place] Encounter for nutritional assessmentClass 3 severe obesity with serious comorbidity and body mass index (BMI) of 60.0 to 69.9 in adult, unspecified obesity typeMorbid (severe) obesity due to excess caloriesBody mass index [BMI] 60.0-69.9, adultDiabetic nutritional counseling completed 4 Luz Nichols. [address], [place], [id number] , [place]. tel:[phone] INIT PM E/M NEW PAT 65+ YRS [facility], [address] [facility] [address] [facility], [place], [place], [id number], [place] tel:[phone] [place] Post Enrollment Evaluation (chief complaint)c ontinued (chief complaint) Hypothyroidism, unspecified typeHypertensiv e heart and kidney disease w/ CKD (chronic kidney disease)Stage 2 chronic kidney diseaseType 2 diabetes mellitus with diabetic chronic kidney disease, unspecified CKD stage, unspecified whether penitentiary insulin useType 2 diabetes mellitus with diabetic polyneuropathy, unspecified whether penitentiary insulin useMixed hyperlipidemiaT horacic aortic ectasiaThoracic aorta atherosclerosis Coronary artery calcificationMo derate dementia without behavioral disturbance, psychotic disturbance, mood disturbance, or anxiety, unspecified dementia typeRecurrent major depressive disorder, in partial remissionOSA on CPAPPrimary osteoarthritis of both handsPrimary osteoarthritis, left handMild intermittent asthma without complicationHea lthcare maintenanceOver active bladderHx of idiopathic urticariaLong term (current) use of insulinLong-ter m (current) use of injectable non-insulin antidiabetic drugsLong term (current) use of oral hypoglycemic drugs 4 Ruby Kendra. [address] [place], [id number] , [place]. tel:[phone] [facility], [address] [facility], [place], [place], [id number], tel:[phone] [place] No Information 4 Rubyrosie HandyKendra. [address] [place], [id number] , [place]. tel:[phone] [facility], [address] [facility] [address], [place], [place], [id number], [place] tel:[phone] [place] No Information 4 Tung Handyantha. [address], [id number] , [place]. tel:[phone] Family History Family Member Type Diagnosis Age At Onset No Information Immunizations Vaccine Date Status Comments Fluzone High Dose administered So urce: New Immunization Record Payers Payer name Insurance type Covered democrat ID Wilfrid ramirez(s) [place] [address] [id number] [place] [address] [id number] Social History Type Description Quantity Date Captured Comments Sex Female Smoking Status No Information Chief Complaint And Reason For Visit No Information Reason For Referral Reason For Referral No Information Plan Of Treatment Date Type Action Status Referral Ordered: dr cantu -Neurology (related to Moderate dementia without behavioral disturbance, psychotic disturbance, mood disturbance, or anxiety, unspecified dementia type) ordered Referral Ordered: reynaldo -Allergy and Immunology (related to Hx of idiopathic urticaria) ordered Referral Referred To: dr cantu Ordered: Referrals: Neurology. dr cantu. Follow-up and treat ordered Referral Referred To: reynaldo Ordered: Referrals: Allergy and Immunology. reynaldo. Follow-up and treat ordered Appointment [facility] Check With Marleni BOOKED Appointment Julianna Grayson BOOKED History Of Present Illness Encounter Date Complaint History Of Prese nt Illness PEE FUV #1 Ppt presented wi th her and another daughter I have not met for her follow up pee appt. There was three t hings they wanted to address. At last visit due to her frequent incontinence even on OB drug and her helps her ups so much discussed being seen by OT and getting a commode to help at night she sleeps in the chair. OT saw ppt and they received the commode but not the middle insert but using over the toilet and also helping with showers. Discussed her OB med really not helping much with reducing urine episodes and due to cholinergic effect will stop. Also working on getting her better size briefs as waist tight but legs loose urine coming right out. Ongoing lymphedema to LE nonpitting and daughter inquiring about diureitcs. I discussed probnp on pee visit showed no signs of hf with no murmur, jvd or pitting edema. Likely from dependant in nature as mostly sitting down discussed elevating and also wrapping her legs with coban until OT can measure her for compression stockings are regular ones do not work. Lastly family was wondering about neurologist appt and weaning meds due to ppt flat affect and sleepiness. Taking naps during the day. She also has not been using cpap as discussed as family cant find it but at some ones house and will find it. I discussed at pee need to get neuro note with their thought process, and will have her go to this neuro appt coming up in next few weeks then depending on what I read likely can take over the care and try to wean antipsychotic. Discussed not on the best antidepressant that can cause sleepiness, increase in appetite. I also discussed b12 was a bit less than goal and will start. Follow-up continued MOLST: Reviewed with ppt and son and currently they want to take it home and look at itDiagnosis, allergies, history and meds reviewed with ppt, and sonMOCA lower end and does appear ppt is almost trapped in her body very slow and flat to speak but does make sense when give her time. Hold off on invoking until I can get to know ppt and family agrees. No known allergies. Active medications with [facility]- certavite one tab daily, levothyroxine 75mcg one tab daily in AM, metformin 500mg er one tab daily in AM (dose reduced d/t diarrhea), trulicity 1.5mg subQ daily on ( administers), mirtazapine 30mg one tab daily at bedtime, pravastatin 40mg daily at bedtime, propranolol 160mg one capsule daily, risperidone 1 mg, take two tabs daily at bedtime, rivastigmine 3mg one capsule twice daily, tolterodine 4mg one capsule daily, vitamin C 1000mg one tab daily, ASA EC 81mg one tab daily, tresiba 45 units daily in AM ( administers). Interested in [facility], currently only checking FSBS once daily in the morning. PEE scheduled for 04/13 at 11am with transportation, will meet Julianna at [facility].Per-Service Plan at SNF-Asthma rare not use it much, [place]-Knee replacements, CHF-no evidence, CKD, Delusional Onset 2022, IDDM-60s pils then insuins, Generalized Weakness, H/O Pneumonia, H/O UTIs, Hyperlipidemia, HTN, Hypothyroidism, Migraines, Morbid Obesity, OA-hands , Vascular Dementia 1 year ago jun 2022 [facility] sent home said uti brain scan also may 2022 evrything was fine memory going but jun mind got crazy mother accusatory infidelity police called ambulance called [facility] father and son and mother and daufht day and went home police and ambulance c and uti kept 3 weeks in psych assessment ct scan vascular dementia activity early tias started on meds decreased over time jul 2022 but unsafe due to showers only seen [address] plunkett hard to get ahold too flat and knows and delayed haivng parkinsonsism, Reduced Mobility. Per Dtr. Idiopathic Hives.Neuro incontinence with bowelsRisperidone, mirtazapine and rivastigmineNeuro med a little delay urge doesn't come out, neuro anxiety vascular dementia breakdown and anxious She is a drone Do anything less flaccid and more mobile used to be very social and very involved with temple friends that visit and family friendly with staffDecreased risperidone from amVaccines: Ppt just recently had covid shot in last week or so and needs flu shot getting today. Not sure about other vaccines working on getting results. 4Ms:Mind: AxOx2 person place, forgetful, slow to aswer or physicallt respondMeds: Digna is on risperidone due to dementia with agitation at one point follows with neuro which is reducing. She has insulin. She has bubble packs and gives her meds and injectionsMobility: walker to get to br and back and wheelchair for longer distances. Until recently was getting PT.MM: more mobile more interactive and less flatROSDenies fever and chillsDenies headache, dizziness, vertigo, syncope or vision changesDenies problems with chewing or swallowingDenies problems hearingReport n/t to hands with some swelling and pain and denies n/t in feetDenies chest painDenies SOB at rest but has with exertion walking more than 30 feet per pptAbd soft, nontender, nondistended, +bsx4, ppt reports incontinence of urine and intermittent incontinence of stoolDenies leg pain and report legs swollenDenies sadness or anxiety, family feels she is a drone slow to resoun and flat used to be most socialPENAD obese elderly woman in a wheelchairAxOx2 to self, place, president, year, birthdate off on month. Delayed answering but clearPERRLBilateral tympanic membranes visualized pearly white, no signs of hohPpt with own teethMoist mucous membranesNo enlarged cervical lymph nodes, thyroid inspected with no nodules palpatedLSCTA bilaterally Heart regular rate +s1 and +s2Abd soft, non tender, non distended, +izw6Npum intact with old surgical scares to bilateral knees, middle of left foot and by left great toeFungal rash in abd folds, groin and under breastsLE edema +2 pitting, +cms, warm feet, +pp, 03/18 microfilamentCalm and cooperative with flat affect Post Enrollment Evaluation Patie tonia was seen today for her PEE in the office accompanied by her and son. She started with [facility] in 04/2024. Does not attend day program. Currently [facility] with her , Hitesh, since Jul 2023 and prior living at home. Hitesh is actively trying to get into our program. PPt decline started in Jun 2022 after agitation at home turned into psych stay and dementia diagnosis. Echo [facility] 12/03/2022Summary The left ventricular size is normal. The left ventricular wall thickness is mildly increased. The LV systolic function is normal . The left ventricular ejection fraction is 50-60 %. Cannot rule out basal inferior wall hypokinesis . The right ventricular size and function appears grossly normal. Comparison Comparison is made to the study of March 10, 2020. Limited studies making direct comparison difficult. There is no significant change.Cta 12/02/2022N-ANGIOGRAPHIC FINDINGS: Crop Roller View Findings, Lines and Tubes: None. Trachea and Airways: Patent without evidence of tracheal or endobronchial lesion. Lungs and Pleura: Unchanged 2.6 cm left upper lobe bulla. Motion degrades fine conspicuity of the lungs. Mild lingular scarring and subpleural reticulation. No effusion or pneumothorax. Mediastinum and mile: No mass or hematoma. No mediastinal or hilar lymphadenopathy. No esophageal abnormality. Partially imaged thyroid is unremarkable. Heart: Heart is normal in size. No pericardial effusion. Chest Wall Soft Tissues: Normal. Diaphragm and upper abdomen: No significant abnormality. Bones: No acute abnormality. IMPRESSION: Significantly limited study showing no evidence of pulmonary embolism.Ct head 06/27/2022therosclerotic vascular calcification of the carotid arteries but negative hyperdense vessel sign. Moderate prominence of the ventricles and sulci consistent with parenchymal volume loss. Moderate low-density white matter changes.Complete PFT 08/30/2021INTERPRETATION: Vital capacity near lower limit of normal, without obstruction. The MVV is consistent with the level of FEV1. Mild restrictive defect. The diffusing capacity is mildly reduced. The finding of restriction with low DLCO suggests interstitial lung disease. Since 16-Apr-21, unchanged FEV1 (+6%), FVC (+8%), TLC (-6%), DLCO (-8%).Igg normal 813, iga 427 high 05/2022,igm 31 low 05/2022, 256 igeInformation per collective, [facility], ppt, son and hospitalization, [facility], [facility] [place] admitted with chest pain and shortness of breath and a UTI. Found to have left lower lobe pneumonia as well. Was saturating well on room air, hemodynamically stable. CT imaging with no PE. Echocardiogram with normal cardiac function. Procalcitonin was elevated. Patient remained stable on room air. No elements of heart failure exacerbation. Unremarkable BNP and normal troponins. Switch to oral antibiotics and [facility] [place] in psych unit for 3 wks found to have dementiaGeriatric note 10/2022NeuroimagingMRI brain without contrast (11/13/2018)Series: Sagittal T1, axial DWI, axial ADC, axial SWI, axial T2, axial FLAIR.Scattered puncta, plaque, and periventricular hyperintense lucencies consistent with small vessel ischemic vascular disease. Fazekas grade mild to moderate. Major involvement within the deep white matter frontal and parietal lobes. Some juxtacortical lesions appreciated as well. Also appreciate bilateral loss of mesial temporal architecture and some noticeable hippocampal bilateral loss. SWI images unremarkable. Impression is consistent with neuropathological changes from Alzheimer's disease as well as mild to moderate small vessel ischemic vascular disease. 77 y/o female, prior dementia dx at [facility] as well as hospitalization for urinary infection accompanied by delirium in recent past. Has an admixture of amnestic, word-finding, concentration, and visuospatial organization complaints. Started on risperidone 2 mg bid which has lead to cessation of delusional beliefs regarding , but also significantly sedated her. Comorbidities include type II DM (mild elevation HbA1c, no urine microalbuminuria), HTN, hyperlipidemia (recent LDL 114 so close to goal here), REED (using CPAP about 30-50% of potential time). Neuroimaging consistent with neuropathological changes from Alzheimer's disease as well as mild to moderate small vessel ischemic vascular disease. 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 Of note, the family approach to this issue is currently not to talk about it, which I think will be quite counterproductive to preserving her quality of life and the caregiver's sense of efficacy and current stable affect. PLAN1. dementia, Alzeheimer's/vascular overlap? Medication safety focus on this assessment· By hx, apparently too sedated; does have control of delusionso Would first decrease to risperidone 1 mg bid, hold at that dose for 2 weeks, then decrease to risperidone 1 mg qd. If delusions were to return, would re-increase dosage to last effective levelo Brexipiprazole recently approved for this indication; would also consider once pt. stable on risperidone 1 mg qd to d/c risperidone fully for one week, then start brexipiprazole 1 mg qd; effective control of delusional beliefs noted at doses between 1-2 mg qd.? Given that pt already in adult diapers all day, and given anticholinergic properties of tolterodine, would d/c? Would consider changing to a different beta espinoza that didn't have as significant SENIOR ASIC ENGINEER penetration as propranolol, given pt. continuing c/o sedation.? Have instructed family to flush lorazepam down the toilet; this medication has high risk of sedation, falls, aspiration, and disinhibition in this patient. Fortunately she did not take it at any time after d/c.? Tolerating rivastigmine well at this time, would continue? No indication at this time for neuropsychological assessment? Will obtain for future review MRI performed at [id number] 20[facility].Complaints/concerns: Family feels digna is almost trapped in her body since starting psych meds for agitation in dementia in jun 2022. No longer agitated but flat affect, slow to answer and move. Follows with neuro but need notes. Family reports said she has parkinsoniam signs but not parkinsons. Risperidone is being weaned. Discussed will get notes likely cant take over case. ADLs/services: Needs daily assist with ADLs and incontinence care. Staff at SNF provide care along with her spouse Hitesh. Hitesh brings her to every 1-1.5 hours to help with incontinence. Hitesh and family manage IADLs. She uses 4WW and wheelchair for distance. administers DM injectables and meds in general. Julianna receives daily support from her Hitesh. Hitesh tends to be reluctant to ask for assistance, feels the need to provide care for Julianna. Family is concerned he is overdoing it and will affect his health. Julianna would benefit coming to the [facility] program for monitoring and provide respite for Hitesh. Hitesh also administers Insulin daily, monitors BS and gives weekly Trulicity. has a monthly injection of Zolar at the runner out for Idiopathic hives. Would benefit from additional PT for mobility, prefers to sleep in a recliner.Socialization/Mental Health: Digna was started on mirtazapine 30 mg daily at around Jun 2022 after went to hospital for erratic behavior toward found to have a UTI then ended up in psych unit for 3 weeks. She had some anxiety and depression at that time. She is also on risperidone and rivastigmine all that neuro prescribes. Family reports had [place] [facility] found to have vascular dementia but neuro also said she had some parkinsonism traits but not Parkinson's. Denies sadness or anxiety currently. PHQ2=0. She lives [facility] has friends, family visits and lives with her and involved in activites. Son describes her as a drone with flat affect. She used to be the most social person in the room now reactions are delayed and slow speech, slow movements, flat affect. Podiatry: Ppt with swelling to feel with pitting edema, echo and probnp not consistent with chf, dependant edema mostly wheelchair bound not wearing compression or elevating. She has a scar to mid right foot and a scar to left base great toe per family broke her ankle and also had bone shaving for arthritis. No signs of PVD. On open wounds. Thick toe nails that are yellow we were able to cut toe nails no need to go to podiatry. Audiology: No problems with heairng.Dental: Ppt has own teeth and 2 months ago had tooth extracted at dentist [facility] [address] in [place] been a while every 6 months follow up. Ophthalmology: Ppt wears eye glasses and follows at Dr. Guzman's office with [facility] in [place]. Per told they are keeping an eye on her cataracts. Saw recently 6-8 wks ago. Follows with yearly. Denies currently issues with her eyes. Mammography: [facility] 01/26/2024 IMPRESSION: No mammographic evidence of malignancy. RECOMMENDATION: Annual mammographic screeningShe has no hx of breast cancer in herself or family. Never had a problem with mammograms not interested in continue to do mammograms. Dexa Scan: 01/26/2024 [facility] Impression: The patient has normal bone density as determined by WHO criteria. A repeat bone density assessment should be considered in two years.Does not need follow up scan no issues with falls or fxs and ppt not interestedColonsocpy: Ppt has not had hx or family hx of colon cancer and not intersted in following further. Functional Status Date Functional Assessmen t No Information Instructions Date Instruction Additional Infor indy ppt comes to us with hx of idiopathy hives follows with reynaldo hernandez gets monthly injeciton zolar-no symptoms of hives doing well Related to Hx of idiopathic urticaria ppt heavily incontin ent of urine wears adjust diapers. takes her to br around every 1-1.5 hours as takes so long to get her moving. She is on tolterodine 4mg one capsule daily and vit c. Hx of UTIS. not sure how much this med is doing. We discussed a lot today and new to me. Pancho pineda at next visit in one month. Does have cholenergic affect not great for dementia Related to Overactive bladder Family going over mo lst with pptnot invoking today slow to respond and answer but making sense new to me but moca ongong discussion with ppt and familyvaccines up to [facility] dentaldoes not want mammo, colonoscopy or dexafollow with neuro until get notes to see directionoverall goal increase quality of life move better and more social reducing psych meds Related to Healthcare maintenance ppt has asthma she i s morbidly obese with some signs of intersticial lung disease on pfts never really a smoker. She rarely needs jose ramon no exacerbations.Complete PFT 08/30/2021INTERPRETATION: Vital capacity near lower limit of normal, without obstruction. The MVV is consistent with the level of FEV1. Mild restrictive defect. The diffusing capacity is mildly reduced. The finding of restriction with low DLCO suggests interstitial lung disease. Since 16-Apr-21, unchanged FEV1 (+6%), FVC (+8%), TLC (-6%), DLCO (-8%).planprn jose ramon for sob and wheezing Related to Mild intermittent asthma without complication ppt comes to us with b/l hand OA on tylenol which usually does the trick and using herbal supplements Discussed diclofeniac gel not interested currently. She can't open up jars intermittent hand pain and swelling but helps Related to Primary osteoarthritis of both hands ppt comes to us with b/l hand OA on tylenol which usually does the trick and using herbal supplements Discussed diclofeniac gel not interested currently. She can't open up jars intermittent hand pain and swelling but helps Related to Primary osteoarthritis, left hand ppt comes to us with hx of reed with mobid obesity, htn, ckd, t2dm, hypothyroidism not consistent with using cpap and education given risk of bradycardia, sob, cardiac event and along with day time sleepiness. Ppt willing to try again. Related to REED on CPAP Depression and anxie ty started around jun 2022 after uti ended up in psych cramer thought was cheating on her found to have dementia and follows with neuro started on mirtazapine 30 mg daily. She was agitated and had delusions but no more. HOwever ppt is overweight and sleeping too much both side affects of meds. Will need neuro notes and might adjust med currently phq2=0 denies sadness or depression. Related to Recurrent major depressive disorder, in partial remission ct head 08/2021 coron joy artery calcificationon asa, bb, and statin goal ldl less than 70 and goal bp less than 130/80goal alc less than 8%continue to observe Related to Coronary artery calcification ct head 08/2021 Moder ate atherosclerotic thoracic aortic calcification.on asa, bb and statin goal ldl less than 70, goal bp less than 130/80, goal alc less than 8%continue to observe Related to Thoracic aorta atherosclerosis ct head orta: Unchanged ectasia of ascending thoracic aorta, maximum diameter of 3.9 cm. 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 She has dementia. 03/18 microfilament. NO need for podiatry we can cut nails, family keeps close eye on feet. Knows to always wear shoes and socks and check feet daily. goal alc less than 8% Related to Type 2 diabetes mellitus with diabetic polyneuropathy, unspecified whether penitentiary insulin use PPt comes to us with hx of HTN and t2dm complicated by ckd stage 2. She has had DM for many years. Ppt is overweight on glp24/04/2024 Cr 0.88 and gfr 67 alb/cr urine 29, alc 8.3%, Labs alc 7.1% 02/2023, 7.5% 06/2022, 7% 09/2021, cr 0.9-1 and gfr 59-67 in ears to be more ckd stage 2 however gfr goes down when dehydrated or with utiCurrently on metformin 500 mg daily, trulicity 1.5 mg sq injection wkly that just went up and tresiba 45 units daily which gives insulin and injections. She is dong fingersticks but don't have numbers. plangoal alc less than 8%currently not on donna or arb just bb. Consider starting donna/arb as sbp 150s but first time meeting ppt will get a few more bps, asymptomaticgoal bp less than 130/80avoid nephrotoxins and stay hydratedppt is on statin but no donna or arbno need for podiatry we can cut nails and family keep eye on feet along with usfollows with opthalmologistdiscussed microvascular complications and macrovascular complications of uncontrolled t2dm and importance of compliance with meds, diet and exerciselimited diet adjustments in half-way and mostly wheelchair bound not getting much exercisealc, cmp, lipid panel, urine microalbuminno changes in meds will go up on glp1 after a monthuable to go up on metformin not able to toleratesglt2 not an option incontinent almost every hour and frequent utiscgm Related to Type 2 diabetes mellitus with diabetic chronic kidney disease, unspecified CKD stage, unspecified whether long term care administrator insulin use PPt comes to us with hx of HTN and t2dm complicated by ckd stage 04/05/2024 Cr 0.88 and gfr 67 alb/cr urine 29, alc 8.3%, Labs alc 7.1% 02/2023, 7.5% 06/2022, 7% 09/2021, cr 0.9-1 and gfr 59-67 in ppears to be more ckd stage 2 however gfr goes down when dehydrated or with utihx of [id number] alc less than 8%currently not on donna or arb just bb. Consider starting donna/arb as sbp 150s but first time meeting ppt will get a few more bps, asymptomaticgoal bp less than 130/80avoid nephrotoxins and stay hydratedcmp Related to Stage 2 chronic kidney disease Digna comes to us with hx of HTN. Echo with mildly increased LVH consistent with HTN but no sign of HF. Ppt with sob with exertion and LE +2 edema. Probnps in past not concerning for HF. Ppt with t2dm and ckd. 11/18/2023 Cr 0.88 and gfr 67, alb/cr urine 29 with no protein in her urine. She is on asa 81 mg daily and also on propanolol 160 mg ER daily which was changed by geriatrics in october 2022 due to it has no media planner penetration. Currently bp 150/80 elevated however first time meeting ppt. planwill get a few more bps if continue to be above goal of 130/80 would start donna/arb as has dm protect kidneysno changes to medscmpgoal alc less than 8% Related to Hypertensive heart and kidney disease w/ CKD (chronic kidney disease) digna comes to us with hx of hypothyroidism. She is on levothyroxine 75 mcg daily. Takes on empty stomach but with other meds which I educated and family needs to be on empty stomach. Not symptomaticplantsh with reflex t2no changes to meds Related to Hypothyroidism, unspecified type Assessments Type Assessment Date No Information Goals Health Concern Goal Type Priority Status Date Julianna is at risk for functional decline related to cognition, limited mobility, strength with rigidity, and diabetes. Julianna will remain living in the community for the next 6 months. Patient Goal New Julianna is at risk for falls related to cognition, limited mobility, decreased strength with rigidity, and obesity. Julianna will not experience any falls or fall related injuries for 6 months. Patient Goal Continued Julianna is at risk for complications related to diabetes Julianna will not experience any medical complications or hospitalizations, related to diabetes and A1C will be reduced or remain stable, as determined by the provider, for 6 months. Patient Goal New Julianna has chronic pain related to osteoarthritis and class III obesity Pain will not interfere with current level of functioning until the next review Patient Goal New Julianna has ineffective breathing pattern r/t obstructive sleep apnea Julianna will remain free from complications r/t obstructive sleep apnea Patient Goal New Julianna is at risk for elopement secondary to dx of vascular dementia Julianna will not wander from [facility] center or home environment for 6 months. Patient Goal New Julianna is obese related to excessive energy intake AEB by BMI Julianna will maintain current weight of 282.6 pounds, or gradually lose weight for 6 months. Patient Goal Discontinued Altered skin integrity related to obesity, limited mobility and incontinence AEB antifungal rash to underneath breasts, abdominal folds, and groin area. Antifungal areas will improve and Julianna will not have any new or worsening skin breakdown within 6 months Patient Goal New Alteration in thought process related to Cognitive Impairment AEB MOCA 15/30 and dx of vascular dementia with delayed response. Julianna will remain living safely in the SNF through the next review. Patient Goal New Alteration in thought process related to Cognitive Impairment AEB MOCA 15/30 and dx of vascular dementia with delayed response. Julianna will remain living safely in the [facility] through the next review. Patient Goal New Patient Care Teams Name Effective Dates (start - stop) Status Members No Information
== END 2024-05-19 14:49 | disposition home or self-care (01) ==
PROVIDERS: Visit Provider Physician Assistant Medical
DX: G20.C Parkinsonism, unspecified (principal); F22 Delusional disorders; F01.52 Vascular dementia, unspecified severity, with psychotic disturbance
CPT/HCPCS: 99214

== ENCOUNTER → 2024-05-19 13:52 | Outpatient (BNVA) | payer MEDICARE, OTHER, SELFPAY | PROVIDERS: Visit Provider Physician Assistant Medical | DX: G20.C Parkinsonism, unspecified (principal); F22 Delusional disorders; F01.52 Vascular dementia, unspecified severity, with psychotic disturbance | CPT/HCPCS: 99212 ==